=== PATIENT | female | born 2005 | race Caucasian/White ===

== ENCOUNTER 2024-07-11 16:44 | Inpatient (IN) | payer BC, MEDICAID, SELFPAY ==
--- NOTE | ~2024-07-11 | CT_ITS ---
CLINICAL HISTORY: Right-sided pain CT abdomen and pelvis without contrast Comparison: None Findings: No nephrolithiasis or hydronephrosis. No bladder stone. No consolidation at the lung bases. Unremarkable gallbladder. Hepatic steatosis. The other solid organs are normal. No bowel wall thickening or dilation. The proximal appendix is normal in size, measuring 6 mm, and contains air. The distal appendix is mildly dilated, measuring up to 9 mm. The distal appendix does not contain air. There is mild distal periappendiceal stranding. No fluid collection or free air. Normal vasculature. No lymphadenopathy. No ascites. No acute fracture. Impression: Acute uncomplicated appendicitis. This document has been electronically signed by: Katia Clement MD on 07/11/2024 19:51:42
[2024-07-11 17:23] VITALS: BP 115/82; PULSE 81; RESP 18; TEMP 36.3; O2SAT 98; BMI 50.6
--- NOTE | 2024-07-11 17:26 | ED.GENADULT ---
HPI - General Adult General Chief complaint: Abdominal Pain Stated complaint: Appendix- Stabbing Pain, 99.2 Temp, Nausea Time Seen by Provider: 07/11/24 17:41 Source: patient Mode of arrival: ambulatory Limitations: no limitations History of Present Illness ED Provider: HPI narrative: Patient no significant past medical noticed sudden onset of pain in right mid abdomen yesterday at 18:00 sharp in nature associated with nausea no fever no chills no urinary symptoms no hematuria patient has had normal bowel movement today did not feel hungry all day today Related Data Home Medications ?Medication ?Instructions ?Recorded ?Confirmed No Known Home Meds 07/11/24 07/11/24 Allergies Allergy/AdvReac Type Severity Reaction Status Date / Time amoxicillin [From AUGMENTIN] AdvReac Mild Anaphylaxis Verified 07/11/24 20:29 clavulanic acid AdvReac Mild STOMACH Verified 07/11/24 17:24 [From AUGMENTIN] UPSET Review of Systems Review of Systems: Yes all other systems are reviewed and are negative PMFSH Past Medical History Medical History (Updated 07/11/24 @ 20:51 by Carl Huagn MD) Morbid obesity due to excess calories Surgical History (Updated 07/11/24 @ 20:52 by Carl Huang MD) S/P carpal tunnel release Social History Social History Smoked in Last 30 Days: Yes Use of substances other than those prescribed or required for medical reasons: No Advance Directives: No Advance Directives Information Provided: No Patient : No Physical Exam ED Vital Signs: Vital Signs - 24 hr 07/11/24 17:23 07/11/24 20:55 Temperature 97.4 F 98.5 F Pulse Rate 81 76 Respiratory Rate 18 20 Blood Pressure 115/82 101/51 L Pulse Oximetry 98 100 Oxygen Delivery Method Room Air Room Air BMI result Body Mass Index 50.6 Appearance: Alert. Oriented X3. No acute distress. Eyes: No pallor or icterus ENT: Pharynx normal. Oral Mucosa moist Neck: Normal inspection. Neck supple. CVS: Normal heart rate and rhythm. Pulses normal. Respiratory: No respiratory distress. Equal air entry bilateral, no wheezing/rales/rhonchi Abdomen: Soft and deep tenderness rlq Bowel sounds are present, no mass palpable, slight right CVA tenderness Skin: Skin warm and dry. Normal skin color. Normal skin turgor. Extremities: No lower extremity edema. No calf tenderness Neuro: Oriented X 3. No motor deficit. Course Course Course Narrative: This is a rapid medical exam performed by Ana Bell PA-C. The patient is a 18-year-old female with a history of morbid obesity who presents with right lower quadrant pain since last night. Pain nonradiating, worse with lying on her abdomen or movement. Associated nausea no vomiting. Denies dysuria, hematuria or history of kidney stones. No fevers. No diarrhea no constipation. On exam, she has tenderness over suprapubic to right lower quadrant without guarding. We will be screening basic labs and an hCG. The patient is stable and can return to the waiting room pending her full medical assessment. Medications Administered Generic Name Dose Route Start Last Admin Trade Name Freq PRN Reason Stop Dose Admin Lactated Ringer's 1,000 mls @ 80 mls/hr 07/11/24 21:15 07/11/24 22:17 Lr IVCONT 80 mls/hr .[id number] JONATHAN Administration Ketorolac Tromethamine 15 mg 07/11/24 21:22 07/11/24 21:42 Ketorolac Tromethamine 15 Mg/Ml Vial IVPUSH 15 mg Q6H PRN Administration Pain, Severe (Pain Scale 7-10) Discontinued Medications Generic Name Dose Route Start Last Admin Trade Name Freq PRN Reason Stop Dose Admin Levofloxacin 500 mg in 100 mls @ 100 mls/hr 07/11/24 20:46 07/11/24 23:45 Levaquin IV 07/11/24 21:45 Infused ONCE ONE Infusion Metronidazole 500 mg in 100 mls @ 100 mls/hr 07/11/24 20:46 07/11/24 22:45 Flagyl IV 07/11/24 21:45 Infused ONCE ONE Infusion Medical Decision Making Medical Decision Making [facility] Narrative: Patient's sudden onset of pain in the right mid abdomen and right lower quadrant possible kidney stone/appendicitis/diverticulitis CT scan showed uncomplicated acute appendicitis patient has a normal WBC count case discussed surgeon Dr. Huang will come and see the patient's plan for surgery in a.m. advised to start patient on Zosyn Differential Diagnosis Differential Diagnoses: The differential diagnosis associated with the presentation includes Consult Healthcare Provider Management of the patient was discussed with: Customer Care Assistant Lab Data MDM Lab Attestation statement: I reviewed the patient's lab results. 07/11/24 17:37 07/11/24 17:37 Labs: Lab Results 07/11/24 07/11/24 Range/Units 17:37 17:54 WBC 5.5 (4.8-10.8) X10*3/uL RBC 4.89 (4.20-5.50) X10*6/uL Hgb 14.0 (12.0-16.0) g/dl Hct 39.5 (37.0-47.0) % MCV 80.8 (80.0-98.0) fL MCH 28.6 (27.0-33.0) pg MCHC 35.4 H (31.0-35.0) g/dl RDW 12.3 (11.0-16.0) % Plt Count 221 (160-400) X10*3/uL MPV 9.2 L (9.4-12.3) fL Immature Gran % (Auto) 0.7 H (0.0-0.4) % Neut % (Auto) 56.3 (45-73) % Lymph % (Auto) 34.1 (20-40) % [place]osh % (Auto) 7.8 (2-11) % Eos % (Auto) 0.9 (0-4) % Baso % (Auto) 0.2 (0-2) % Lymph # (Auto) 1.9 (1.2-4.9) X10*3/uL [place] # (Auto) 0.4 (0.1-1.2) X10*3/uL Eos # (Auto) 0.1 (0.0-0.4) X10*3/uL Baso # (Auto) 0.0 (0.0-0.2) X10*3/uL Abs Immat Gran (auto) 0.04 H (0.00-0.03) X10*3/uL Absolute Neuts (auto) 3.1 (2.0-8.3) x10*3/uL Absolute Nucleated RBC 0.000 (0.0-0.012) X10*3/uL Nucleated RBC % (auto) 0.0 (0.0-0.2) /100WBC Sodium 138 (135-145) mmol/L Potassium 4.0 (3.3-5.1) mmol/L Chloride 107 (96-108) mmol/L Carbon Dioxide 25 (22-29) mmol/L Anion Gap 10 L (12-20) BUN 11 (9-16) mg/dL Creatinine 0.73 (0.5-1.4) mg/dL Estim Creat Clear Calc 167.4 Estimated GFR > 60 Random Glucose 85 (60-115) mg/dL Calcium 9.2 (8.4-10.2) mg/dL Magnesium 1.7 (1.6-2.6) mg/dL Total Bilirubin 0.7 (0.0-1.0) mg/dL AST 19 (5-31) U/L ALT 21 (0-31) U/L Alkaline Phosphatase 70 (39-117) U/L Total Protein 7.2 (6.5-8.0) g/dL Albumin 4.2 (3.5-5.0) g/dL Beta HCG, Quant < 2 mIU/mL Urine Color Yellow Urine Appearance Cloudy Urine pH 6.5 (5.0-9.0) Ur Specific [place] 1.020 (1.005-1.025) Urine Protein Negative (Neg-Trace) mg/dL Urine Glucose (UA) Negative (Negative) mg/dL Urine Ketones Negative (Negative) mg/dL Urine Blood Negative (Negative) Urine Nitrite Negative (Negative) Ur Leukocyte Esterase Trace H (Negative) Urine RBC 6-10 H (0-2) /HPF Urine WBC 6-10 H (0-5) /HPF Ur Squamous Epith Cells 11-20 (0-2) /HPF Urine Bacteria 3+ (None Seen) Hyaline Casts 0-2 (0-2) /LPF Independent Interpretation I performed an independent interpretation of an: CT Scan Radiology Impression Discussion of test interpretation with radiology: I have reviewed the radiologist's reading. Radiologist Impression: CT abdomen and pelvis without contrast Comparison: None Findings: No nephrolithiasis or hydronephrosis. No bladder stone. No consolidation at the lung bases. Unremarkable gallbladder. Hepatic steatosis. The other solid organs are normal. No bowel wall thickening or dilation. The proximal appendix is normal in size, measuring 6 mm, and contains air. The distal appendix is mildly dilated, measuring up to 9 mm. The distal appendix does not contain air. There is mild distal periappendiceal stranding. No fluid collection or free air. Normal vasculature. No lymphadenopathy. No ascites. No acute fracture. Impression: Acute uncomplicated appendicitis. This document has been electronically signed by: Katia Clement MD on 07/11/2024 19:51:42 Discharge Plan Discharge Clinical Impression: Acute appendicitis Patient Disposition: Admitted As Inpatient
[2024-07-11 17:44] LABS: MANUAL DIFF FLAG NO
[2024-07-11 17:59] LABS: Basophils Percent Auto 0.2 % (0-2); Eosinophils Absolute Auto 0.1 X10*3/uL (0.0-0.4); Eosinophils Percent Auto 0.9 % (0-4); Hematocrit 39.5 % (37.0-47.0); Imm Gran Abs Auto 0.04 X10*3/uL (0.00-0.03); Imm Gran Pct Auto 0.7 % (0.0-0.4); Lymphocytes Absolute Auto 1.9 X10*3/uL (1.2-4.9); Lymphocytes Percent Auto 34.1 % (20-40); Mean Corpuscular HGB Conc 35.4 g/dl (31.0-35.0); Mean Corpuscular Hemoglobin 28.6 pg (27.0-33.0); Mean Corpuscular Volume 80.8 fL (80.0-98.0); Mean Platelet Volume 9.2 fL (9.4-12.3); Monocytes Absolute Auto 0.4 X10*3/uL (0.1-1.2); Monocytes Percent Auto 7.8 % (2-11); Neutrophils Absolute Auto 3.1 x10*3/uL (2.0-8.3); Neutrophils Percent Auto 56.3 % (45-73); Platelet Count 221 X10*3/uL (160-400); Red Blood Count 4.89 X10*6/uL (4.20-5.50); Red Cell Distribution Width 12.3 % (11.0-16.0); White Blood Count 5.5 X10*3/uL (4.8-10.8)
[2024-07-11 18:03] LABS: Alanine Aminotransferase 21 U/L (0-31); Albumin Level 4.2 g/dL (3.5-5.0); Alkaline Phosphatase 70 U/L (39-117); Anion Gap 10 (12-20); Aspartate Amino Transferase 19 U/L (5-31); Bilirubin Total 0.7 mg/dL (0.0-1.0); Blood Urea Nitrogen 11 mg/dL (9-16); Calcium 9.2 mg/dL (8.4-10.2); Carbon Dioxide 25 mmol/L (22-29); Chloride 107 mmol/L (96-108); Creatinine Clr Calc Pharmacy 167.4; Estimated Glomerular Filt Rate > 60; Glucose Random 85 mg/dL (60-115); Magnesium 1.7 mg/dL (1.6-2.6); Sodium 138 mmol/L (135-145); Total Protein 7.2 g/dL (6.5-8.0)
[2024-07-11 18:04] LABS: HCG Quantitative < 2 mIU/mL
[2024-07-11 18:05] LABS: Appearance Urine Cloudy; Color Urine Yellow; Glucose Urine UA Negative (Negative); Leukocyte Esterase Urine Trace (Negative); Nitrite Urine Negative (Negative); PH 6.5 (5.0-9.0); UMIC TRIGGER UACC YES; Urine Blood Negative (Negative); Urine Ketones Negative (Negative); Urine Protein Negative (Neg-Trace)
[2024-07-11 18:20] LABS: Bacteria Urine 3+ (None Seen); Hyaline Casts Urine 0-2 /LPF (0-2); UACC Culture Trigger YES
--- NOTE | 2024-07-11 20:48 | PM.HPGS ---
History of Present Illness History of Present Illness Date of Service: 07/16/24 Chief complaint: appendicitis Narrative: Marion Real is a 18 year old female here in the ED for right lower quadrant pain. She says this started sometime last night. She had some nause as well but denies any vomitting. The pain persisted today so she came to the ED this afternoon. She says the pain is low in intensity. She deneis any fever or chills. She has never had abdominal surgery in the past. Review of Systems Constitutional: Constitutional: Denies chills and Denies fever(s) Cardiovascular: Cardiovascular: Denies chest pain, Denies dyspnea and Denies dyspnea on exertion Respiratory: Respiratory: Denies cough, Denies dyspnea and Denies dyspnea on exertion Gastrointestinal: Gastrointestinal: Denies hematochezia and Denies change in bowel habits Genitourinary: Genitourinary: Denies hematuria Musculoskeletal: Musculoskeletal: Denies back pain and Denies limited range of motion Neurologic: Denies focal weakness and Denies convulsions Psychiatric: Psychiatric: Denies depression and Denies mood swings PMFSH Past Medical History Medical History Morbid obesity due to excess calories Surgical History Surgical History S/P carpal tunnel release Social History Social History Household Members: Family Housing: Apartment Do you presently have visiting nurse or other home services: No Patient Tobacco Use Status: Never used Tobacco e-Cigarette/Vaping Use: Currently Using Second Hand Smoke Exposure: No Substance Use Type: Marijuana service: No Meds Allergies Allergy/AdvReac Type Severity Reaction Status Date / Time amoxicillin [From AUGMENTIN] AdvReac Mild Anaphylaxis Verified 07/11/24 20:29 clavulanic acid AdvReac Mild STOMACH Verified 07/11/24 17:24 [From AUGMENTIN] UPSET Active Medications: Current Medications Levofloxacin (Levaquin) 500 mg in 100 mls @ 100 mls/hr IV ONCE ONE Stop: 07/11/24 21:45 Metronidazole (Flagyl) 500 mg in 100 mls @ 100 mls/hr IV ONCE ONE Stop: 07/11/24 21:45 Physical Exam Vital Signs: Vital Signs: Last Vital Signs Temp 97.4 F 07/11/24 17:23 Pulse 81 07/11/24 17:23 Resp 18 07/11/24 17:23 BP 115/82 07/11/24 17:23 Pulse Ox 98 07/11/24 17:23 O2 Del Method Room Air 07/11/24 17:23 BMI result Body Mass Index 50.6 Const: Other: morbidly obese General: comfortable and no acute distress Orientation/consciousness: patient oriented x3 Neck: Neck: Yes no lymphadenopathy Resp: Auscultation: clear to auscultation bilaterally Cardio: Rhythm: regular rhythm GI: Other: obese abdomen, thick pannus, mild tendernes on the RLQ Palpation (GI): Soft to palpation, Tenderness to palpation present (GI) and no guarding Neuro: General: patient oriented x3 Results Results Labs: Short CBC 07/11/24 Range/Units 17:37 WBC 5.5 (4.8-10.8) X10*3/uL Hgb 14.0 (12.0-16.0) g/dl Hct 39.5 (37.0-47.0) % Plt Count 221 (160-400) X10*3/uL BMP 07/11/24 17:37 Sodium 138 Potassium 4.0 Chloride 107 Carbon Dioxide 25 BUN 11 Creatinine 0.73 Calcium 9.2 Liver Function 07/11/24 Range/Units 17:37 Total Bilirubin 0.7 (0.0-1.0) mg/dL AST 19 (5-31) U/L ALT 21 (0-31) U/L Alkaline Phosphatase 70 (39-117) U/L Albumin 4.2 (3.5-5.0) g/dL Urine 07/11/24 Range/Units 17:54 Urine Color Yellow Urine Appearance Cloudy Urine pH 6.5 (5.0-9.0) Ur Specific [place] 1.020 (1.005-1.025) Urine Protein Negative (Neg-Trace) mg/dL Urine Glucose (UA) Negative (Negative) mg/dL Abdomen CT scan report/results: report reviewed and image reviewed CT scan - pelvis: report reviewed and image reviewed Additional studies: Laboratory Results WBC 5.5 X10*3/uL (4.8-10.8) 07/11/24 17:37 RBC 4.89 X10*6/uL (4.20-5.50) 07/11/24 17:37 Hgb 14.0 g/dl (12.0-16.0) 07/11/24 17:37 Hct 39.5 % (37.0-47.0) 07/11/24 17:37 MCV 80.8 fL (80.0-98.0) 07/11/24 17:37 MCH 28.6 pg (27.0-33.0) 07/11/24 17:37 MCHC 35.4 g/dl (31.0-35.0) H 07/11/24 17:37 RDW 12.3 % (11.0-16.0) 07/11/24 17:37 Plt Count 221 X10*3/uL (160-400) 07/11/24 17:37 MPV 9.2 fL (9.4-12.3) L 07/11/24 17:37 Immature Gran % (Auto) 0.7 % (0.0-0.4) H 07/11/24 17:37 Neut % (Auto) 56.3 % (45-73) 07/11/24 17:37 Lymph % (Auto) 34.1 % (20-40) 07/11/24 17:37 [place] % (Auto) 7.8 % (2-11) 07/11/24 17:37 Eos % (Auto) 0.9 % (0-4) 07/11/24 17:37 Baso % (Auto) 0.2 % (0-2) 07/11/24 17:37 Lymph # (Auto) 1.9 X10*3/uL (1.2-4.9) 07/11/24 17:37 [place] # (Auto) 0.4 X10*3/uL (0.1-1.2) 07/11/24 17:37 Eos # (Auto) 0.1 X10*3/uL (0.0-0.4) 07/11/24 17:37 Baso # (Auto) 0.0 X10*3/uL (0.0-0.2) 07/11/24 17:37 Abs Immat Gran (auto) 0.04 X10*3/uL (0.00-0.03) H 07/11/24 17:37 Absolute Neuts (auto) 3.1 x10*3/uL (2.0-8.3) 07/11/24 17:37 Absolute Nucleated RBC 0.000 X10*3/uL (0.0-0.012) 07/11/24 17:37 Nucleated RBC % (auto) 0.0 /100WBC (0.0-0.2) 07/11/24 17:37 Sodium 138 mmol/L (135-145) 07/11/24 17:37 Potassium 4.0 mmol/L (3.3-5.1) 07/11/24 17:37 Chloride 107 mmol/L (96-108) 07/11/24 17:37 Carbon Dioxide 25 mmol/L (22-29) 07/11/24 17:37 Anion Gap 10 (12-20) L 07/11/24 17:37 BUN 11 mg/dL (9-16) 07/11/24 17:37 Creatinine 0.73 mg/dL (0.5-1.4) 07/11/24 17:37 Estim Creat Clear Calc 167.4 07/11/24 17:37 Estimated GFR > 60 07/11/24 17:37 Random Glucose 85 mg/dL (60-115) 07/11/24 17:37 Calcium 9.2 mg/dL (8.4-10.2) 07/11/24 17:37 Magnesium 1.7 mg/dL (1.6-2.6) 07/11/24 17:37 Total Bilirubin 0.7 mg/dL (0.0-1.0) 07/11/24 17:37 AST 19 U/L (5-31) 07/11/24 17:37 ALT 21 U/L (0-31) 07/11/24 17:37 Alkaline Phosphatase 70 U/L (39-117) 07/11/24 17:37 Total Protein 7.2 g/dL (6.5-8.0) 07/11/24 17:37 Albumin 4.2 g/dL (3.5-5.0) 07/11/24 17:37 Beta HCG, Quant < 2 mIU/mL 07/11/24 17:37 Urine Color Yellow 07/11/24 17:54 Urine Appearance Cloudy 07/11/24 17:54 Urine pH 6.5 (5.0-9.0) 07/11/24 17:54 Ur Specific [place] 1.020 (1.005-1.025) 07/11/24 17:54 Urine Protein Negative mg/dL (Neg-Trace) 07/11/24 17:54 Urine Glucose (UA) Negative mg/dL (Negative) 07/11/24 17:54 Urine Ketones Negative mg/dL (Negative) 07/11/24 17:54 Urine Blood Negative (Negative) 07/11/24 17:54 Urine Nitrite Negative (Negative) 07/11/24 17:54 Ur Leukocyte Esterase Trace (Negative) H 07/11/24 17:54 Urine RBC 6-10 /HPF (0-2) H 07/11/24 17:54 Urine WBC 6-10 /HPF (0-5) H 07/11/24 17:54 Ur Squamous Epith Cells 11-20 /HPF (0-2) 07/11/24 17:54 Urine Bacteria 3+ (None Seen) 07/11/24 17:54 Hyaline Casts 0-2 /LPF (0-2) 07/11/24 17:54 CT scan: No bowel wall thickening or dilation. The proximal appendix is normal in size, measuring 6 mm, and contains air. The distal appendix is mildly dilated, measuring up to 9 mm. The distal appendix does not contain air. There is mild distal periappendiceal stranding. No fluid collection or free air. Assessment and Plan (1) Acute appendicitis: Status: Acute She has RLQ pain, with a CT scan suggestive of mild acute appendicitis. There is minimal stranding at the tip of the appendix. There is no appendicolith. She has mild tenderness at this time. I had a long discussion with the patient and her family. I explained the options of IV abx as well as laparoscopic appendectomy. I explained the technique of laparoscopic appendectomy and possible open appndectomy. Ir evewed the risks and benefits of each option. Her CT shows minimal inflammatory changes and she does not have an appendicolith. It is resonable to treat her with abx for now especially in view of her morbid obesity which is assocaited with significant perioperative risks. I will order for labs in the morning and will reevaluate her. She and her family are comfortable with the plan. Quality Stroke Does the patient have a stroke diagnosis?: No VTE Prior VTE?: No VTE Risk Level:: Medical - low VTE Device Contraindication: N/A - Device Ordered VTE Drug Contraindication: Treatment Not Indicated Procedures Date of Service Date of Service: 07/16/24
[2024-07-11 20:55] VITALS: BP 101/51; PULSE 76; RESP 20; TEMP 36.9; O2SAT 100
--- NOTE | 2024-07-11 21:13 | PHA.MEDREC ---
Addendum entered by Carlos Giron [facility] 07/11/24 21:26: MED REC CHECKED BY [facility] Original Note: Pharmacy Consult ? Medication Reconciliation Pharmacy has completed the medication reconciliation. Patent states she is not taking any medications.
--- NOTE | 2024-07-11 21:33 | MHC.EDTECH ---
neda and clarence norris given to pt upon request
[2024-07-11] MEDS: metroNIDAZOLE/NS 500 MG/100 ML PIGGYBACK 100 MG IV (21:42)
[2024-07-11] MEDS: Ketorolac Tromethamine 15 MG/ML VIAL IVPUSH (21:42)
--- NOTE | 2024-07-11 21:51 | PC.NURSE ---
no blood cultures prior to antibiotics per Dr. Damian. Flagyl started at this time, levaquin not in pyxis, pharmacy aware and will bring it. patient medicated for 7/10 RLQ abd pain. tolerating clear liquids at this time, patient aware of NPO status at midnight
[2024-07-11] MEDS: Lactated Ringers 1,000 ML 80 ML IVCONT (22:17)
[2024-07-11] MEDS: levoFLOXacin/D5W 500 MG/100 ML PIGGYBACK 100 MG IV (22:41)
--- NOTE | 2024-07-11 23:23 | PC.NURSE ---
assumed care of patient at this time., report received from Magaly KNIGHT
[2024-07-12] VITALS (7 sets, daily range): BP systolic 98–121; BP diastolic 56–79; PULSE 73–89; RESP 15–18; TEMP 36.3–36.9; O2SAT 96–98; BMI 52.7
[2024-07-12] MEDS: ondansetron HCL 4 MG/2 ML VIAL IVPUSH ×2 (03:14→23:51)
[2024-07-12] MEDS: Morphine Sulfate 4 MG/ML CARTRIDGE 3 MG IVPUSH ×4 (03:14→20:31)
--- NOTE | 2024-07-12 04:25 | PC.NURSE ---
pt reports relief of pain from morphine administration. resting comfortably watching videos on phone, no apparent distress noted. call cifuentes within reach plan of care continues
[2024-07-12 05:16] LABS: MANUAL DIFF FLAG NO
[2024-07-12 05:18] LABS: Basophils Percent Auto 0.2 % (0-2); Eosinophils Absolute Auto 0.1 X10*3/uL (0.0-0.4); Hematocrit 40.1 % (37.0-47.0); Hemoglobin 13.5 g/dl (12.0-16.0); Imm Gran Abs Auto 0.03 X10*3/uL (0.00-0.03); Imm Gran Pct Auto 0.5 % (0.0-0.4); Lymphocytes Absolute Auto 2.7 X10*3/uL (1.2-4.9); Lymphocytes Percent Auto 44.7 % (20-40); Mean Corpuscular HGB Conc 33.7 g/dl (31.0-35.0); Mean Corpuscular Hemoglobin 27.9 pg (27.0-33.0); Mean Corpuscular Volume 82.9 fL (80.0-98.0); Mean Platelet Volume 9.6 fL (9.4-12.3); Monocytes Absolute Auto 0.5 X10*3/uL (0.1-1.2); Monocytes Percent Auto 8.9 % (2-11); Neutrophils Absolute Auto 2.7 x10*3/uL (2.0-8.3); Neutrophils Percent Auto 44.7 % (45-73); Platelet Count 235 X10*3/uL (160-400); Red Blood Count 4.84 X10*6/uL (4.20-5.50); Red Cell Distribution Width 12.4 % (11.0-16.0)
[2024-07-12] MEDS: Ketorolac Tromethamine 15 MG/ML VIAL IVPUSH ×2 (07:11→18:26)
[2024-07-12] MEDS: 0.9 % Sodium Chloride Flush 3 ML SYRINGE IVFLUSH ×2 (07:12→20:31)
[2024-07-12] MEDS: metroNIDAZOLE/NS 500 MG/100 ML PIGGYBACK 100 MG IV ×3 (07:15→23:18)
--- NOTE | 2024-07-12 07:48 | P.PNGS_ITS ---
Subjective Subjective Date of Service: 07/13/24 Interval history: States she was anxious all night No nausea or vomiting Feels relatively the same No fever Physical Exam 2 Vital Signs: Vital Signs: Last Vital Signs Temp 98.3 F 07/12/24 03:08 Pulse 80 07/12/24 07:35 Resp 18 07/12/24 07:35 BP 109/57 L 07/12/24 07:35 Pulse Ox 97 07/12/24 07:35 O2 Del Method Room Air 07/12/24 07:35 BMI result Body Mass Index 50.6 Const: Other: Looks well General: comfortable and no acute distress Nutritional Appearance: obese Resp: Effort & Inspection: normal respiratory effort Cardio: Rate: regular rate GI: Palpation (GI): Soft to palpation, not firm, Tenderness to palpation present (GI) (Mild tenderness right lower quadrant) and no guarding Objective Data Active Medications Acetaminophen (Acetaminophen 325 Mg Tablet) 650 mg PO Q6H PRN PRN Reason: Pain, Mild 1-3,fever,headache Calcium Carbonate (Calcium Carbonate 750 Mg Tab.Chew) 750 mg PO Q4H PRN PRN Reason: Heartburn Lactated Ringer's (Lr) 1,000 mls @ 80 mls/hr IVCONT .[id number] [facility] Last Admin: 07/11/24 22:17 Dose: 80 mls/hr Documented By: CARLITOS Levofloxacin (Levaquin) 750 mg in 150 mls @ 100 mls/hr IV Q24H JONATHAN Metronidazole (Flagyl) 500 mg in 100 mls @ 100 mls/hr IV Q8H [facility] Last Admin: 07/12/24 07:15 Dose: 100 mls/hr Documented By: GURINDER Ketorolac Tromethamine (Ketorolac Tromethamine 15 Mg/Ml Vial) 15 mg IVPUSH Q6H PRN PRN Reason: Pain, Severe (Pain Scale 7-10) Last Admin: 07/12/24 07:11 Dose: 15 mg Documented By: GURINDER Morphine Sulfate (Morphine Sulfate 4 Mg/Ml Cartridge) 3 mg IVPUSH Q4H PRN; Protocol PRN Reason: Pain, Severe (Pain Scale 7-10) Last Admin: 07/12/24 03:14 Dose: 3 mg Documented By: CARTER Ondansetron HCl (Ondansetron Hcl 4 Mg/2 Ml Vial) 4 mg IVPUSH Q8H PRN PRN Reason: Nausea and Vomiting Last Admin: 07/12/24 03:14 Dose: 4 mg Documented By: CARTER Oxycodone HCl (Oxycodone Hcl Immed Release 5 Mg Tablet) 10 mg PO Q6H PRN PRN Reason: Pain, Moderate(Pain Scale 4-6) Sodium Chloride (0.9 % Sodium Chloride Flush 3 Ml Syringe) 3 ml IVFLUSH QSHIFT [facility] Last Admin: 07/12/24 07:12 Dose: 3 ml Documented By: GURINDER Labs 07/12/24 04:08 07/11/24 17:37 Labs: Laboratory Results - last 24 hr 07/11/24 07/11/24 07/12/24 17:37 17:54 04:08 MCV 80.8 82.9 MCH 28.6 27.9 MCHC 35.4 H 33.7 RDW 12.3 12.4 Plt Count 221 235 MPV 9.2 L 9.6 Immature Gran % (Auto) 0.7 H 0.5 H Neut % (Auto) 56.3 44.7 L Lymph % (Auto) 34.1 44.7 H [place] % (Auto) 7.8 8.9 Eos % (Auto) 0.9 1.0 Baso % (Auto) 0.2 0.2 Lymph # (Auto) 1.9 2.7 [place] # (Auto) 0.4 0.5 Eos # (Auto) 0.1 0.1 Baso # (Auto) 0.0 0.0 Abs Immat Gran (auto) 0.04 H 0.03 Absolute Neuts (auto) 3.1 2.7 Absolute Nucleated RBC 0.000 0.000 Nucleated RBC % (auto) 0.0 0.0 Anion Gap 10 L Estim Creat Clear Calc 167.4 Estimated GFR > 60 Random Glucose 85 Calcium 9.2 Magnesium 1.7 Total Bilirubin 0.7 AST 19 ALT 21 Alkaline Phosphatase 70 Total Protein 7.2 Albumin 4.2 Beta HCG, Quant < 2 Urine Color Yellow Urine Appearance Cloudy Urine pH 6.5 Ur Specific [place] 1.020 Urine Protein Negative Urine Glucose (UA) Negative Urine Ketones Negative Urine Blood Negative Urine Nitrite Negative Ur Leukocyte Esterase Trace H Urine RBC 6-10 H Urine WBC 6-10 H Ur Squamous Epith Cells 11-20 Urine Bacteria 3+ Hyaline Casts 0-2 Procedures Date of Service Date of Service: 07/13/24 Progress Note: A&P Assessment and plan (1) Acute appendicitis: Status: Acute Assessment and Plan: Exam remains benign No fever White count remains normal Mild tenderness in the right lower quadrant She says to continue with IV antibiotic treatment for now Okay to have clear liquids Continue serial abdominal exams She says she is not ruling out surgical treatment Time Spent With Patient Time: Total time managing care of this patient today ____ minutes. Quality Stroke Does the patient have a stroke diagnosis?: No VTE Prior VTE?: No VTE Risk Level:: Medical - low VTE Device Contraindication: N/A - Device Ordered VTE Drug Contraindication: Treatment Not Indicated
--- NOTE | 2024-07-12 08:13 | MHC.EDTECH ---
pt belongings gathered and pakced next to her, checked for cleanliness and is ready for transport (via admission)
--- NOTE | 2024-07-12 10:52 | MHC.CM.PN ---
PT FROM HOME W/ AUNT [address] [facility] [place] PT DOES NOT RECEIVE SERVICES DOES NOT USE DME PCP- NATALIYA GRANADO PT SIGNED HCP NAMING AUNT, [employer], [employer], MEDICAID DCP- HOME SELF CARE VIA PRIVATE TRANSPORT (AUNT OR [facility])
[2024-07-12] MEDS: Lactated Ringers 1,000 ML 80 ML IVCONT (11:15)
--- NOTE | 2024-07-12 14:37 | PM.EVENT ---
Event Note Date of Service: 07/13/24 Event Note: Seen on afternoon rounds More comfortable No fever According to her aunt, she is not ruling out having surgery I reviewed with them what to expect with laparoscopic appendectomy and possible open I explained the recovery period She is undergoing some schooling to learn many cares and pedicures at this time and her on says that she may not be able to miss days as this is only for 2 weeks She is so far doing well with nonoperative treatment She is on clear liquids I will re-evaluate her again tomorrow Time Spent With Patient Time: Total time managing care of this patient today ____ minutes.
[2024-07-12] MEDS: Acetaminophen 325 MG TABLET 650 MG PO (19:20)
[2024-07-12] MEDS: oxyCODONE HCl Immed Release 5 MG TABLET 10 MG PO (19:20)
[2024-07-12] MEDS: levoFLOXacin/D5W 750 MG/150 ML PIGGYBACK 100 MG IV (22:14)
--- NOTE | 2024-07-13 00:41 | PC.NURSE ---
07/12 around 2309 pt c/o dizziness and a scratchy throat while IV levaquin running, pt thinks it may be an allergic reaction because her grandmother is allergic to levaquin. She did receive a dose of IV levaquin in the ED with no reactions noted. [place] text to Dr. Last who ordered to hold antibiotics. Levaquin stopped. Will continue to monitor.
[2024-07-13] MEDS: Lactated Ringers 1,000 ML 80 ML IVCONT (01:39)
[2024-07-13 03:35] VITALS: BP 122/63; PULSE 72; RESP 16; TEMP 36.2; O2SAT 98
[2024-07-13] MEDS: metroNIDAZOLE/NS 500 MG/100 ML PIGGYBACK 100 MG IV ×3 (06:06→22:19)
[2024-07-13 07:15] VITALS: BP 110/74; PULSE 69; RESP 16; TEMP 36.1; O2SAT 100
[2024-07-13] MEDS: Morphine Sulfate 4 MG/ML CARTRIDGE 3 MG IVPUSH ×4 (07:22→20:09)
--- NOTE | 2024-07-13 07:52 | PM.PNGS ---
Subjective Subjective Date of Service: 07/13/24 Interval history: No events overnight Tolerating clear liquid Still has some low intensity pain No fever Physical Exam Vital Signs: Vital Signs: Last Vital Signs Temp 96.9 F 07/13/24 07:15 Pulse 69 07/13/24 07:15 Resp 16 07/13/24 07:15 BP 110/74 07/13/24 07:15 Pulse Ox 100 07/13/24 07:15 O2 Del Method Room Air 07/13/24 07:15 BMI result Body Mass Index 52.7 Const: Other: Looks well General: comfortable and no acute distress Resp: Effort & Inspection: normal respiratory effort Cardio: Rate: regular rate GI: Other: Large pannus, obese Palpation (GI): Soft to palpation, not firm and no guarding Objective Data Active Medications Acetaminophen (Acetaminophen 325 Mg Tablet) 650 mg PO Q6H PRN PRN Reason: Pain, Mild 1-3,fever,headache Last Admin: 07/12/24 19:20 Dose: 650 mg Documented By: SARITHA Calcium Carbonate (Calcium Carbonate 750 Mg Tab.Chew) 750 mg PO Q4H PRN PRN Reason: Heartburn Lactated Ringer's (Lr) 1,000 mls @ 80 mls/hr IVCONT .[id number] [facility] Last Admin: 07/13/24 01:39 Dose: 80 mls/hr Documented By: SARITHA Levofloxacin (Levaquin) 750 mg in 150 mls @ 100 mls/hr IV Q24H [facility] Last Infusion: 07/12/24 23:18 Dose: Infused Documented By: SARITHA Metronidazole (Flagyl) 500 mg in 100 mls @ 100 mls/hr IV Q8H [facility] Last Infusion: 07/13/24 07:18 Dose: Infused Documented By: KULDIP Ketorolac Tromethamine (Ketorolac Tromethamine 15 Mg/Ml Vial) 15 mg IVPUSH Q6H PRN PRN Reason: Pain, Severe (Pain Scale 7-10) Last Admin: 07/12/24 18:26 Dose: 15 mg Documented By: JOELLE Morphine Sulfate (Morphine Sulfate 4 Mg/Ml Cartridge) 3 mg IVPUSH Q4H PRN; Protocol PRN Reason: Pain, Severe (Pain Scale 7-10) Last Admin: 07/13/24 07:22 Dose: 3 mg Documented By: KULDIP Ondansetron HCl (Ondansetron Hcl 4 Mg/2 Ml Vial) 4 mg IVPUSH Q8H PRN PRN Reason: Nausea and Vomiting Last Admin: 07/12/24 23:51 Dose: 4 mg Documented By: SARITHA Oxycodone HCl (Oxycodone Hcl Immed Release 5 Mg Tablet) 10 mg PO Q6H PRN PRN Reason: Pain, Moderate(Pain Scale 4-6) Last Admin: 07/12/24 19:20 Dose: 10 mg Documented By: SARITHA Sodium Chloride (0.9 % Sodium Chloride Flush 3 Ml Syringe) 3 ml IVFLUSH QSHIFT [facility] Last Admin: 07/13/24 06:46 Dose: Not Given Documented By: KULDIP Non-Admin Reason: IV Running Labs 07/12/24 04:08 07/11/24 17:37 Microbiology Microbiology Results: Microbiology 07/11/24 21:01 Urine Culture - Preliminary Urine clean catch - Clean Catch Midstream Culture too young to evaluate. 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 Quality Stroke Does the patient have a stroke diagnosis?: No VTE Prior VTE?: No VTE Risk Level:: Medical - low VTE Device Contraindication: N/A - Device Ordered VTE Drug Contraindication: Treatment Not Indicated
--- NOTE | 2024-07-13 10:37 | MHC.CM.PN ---
Patient not medically cleared for dc at this time. CM will continue to follow.
[2024-07-13] MEDS: Lactated Ringers 1,000 ML 60 ML IVCONT (11:52)
[2024-07-13 15:12] VITALS: BP 122/66; PULSE 82; RESP 18; TEMP 36.2; O2SAT 97
--- NOTE | 2024-07-13 16:07 | PM.EVENT ---
Event Note Date of Service: 07/13/24 Event Note: Seen on afternoon rounds Tolerating regular diet well Feels well overall Ambulating Abdomen is soft and benign She says she plans to go tomorrow Oral antibiotics on discharge She says she will follow up with me in the office for interval appendectomy Time Spent With Patient Time: Total time managing care of this patient today ____ minutes.
--- NOTE | 2024-07-13 16:45 | PC.NURSE ---
Plan to d/c tomorrow.
[2024-07-13] MEDS: Ketorolac Tromethamine 15 MG/ML VIAL IVPUSH (18:24)
[2024-07-13 19:27] VITALS: BP 104/59; PULSE 78; RESP 18; TEMP 36.2; O2SAT 98
[2024-07-13] MEDS: 0.9 % Sodium Chloride Flush 3 ML SYRINGE IVFLUSH (20:10)
[2024-07-14 03:33] VITALS: BP 97/53; PULSE 60; RESP 18; TEMP 36.3; O2SAT 97
[2024-07-14] MEDS: Lactated Ringers 1,000 ML 60 ML IVCONT (05:57)
[2024-07-14] MEDS: metroNIDAZOLE/NS 500 MG/100 ML PIGGYBACK 100 MG IV (05:58)
[2024-07-14 07:13] VITALS: BP 103/54; PULSE 67; RESP 16; TEMP 36.2; O2SAT 98
[2024-07-14] MEDS: ondansetron HCL 4 MG/2 ML VIAL IVPUSH (07:59)
[2024-07-14] MEDS: Milk of Magnesia 30 ML ORAL.SUSP PO (08:59)
--- NOTE | 2024-07-14 09:04 | PM.PNGS ---
Subjective Subjective Date of Service: 07/14/24 Interval history: Overall patient feels improved today compared to yesterday. Reports some nausea without vomiting this morning. Has not had a bowel movement since admission. Physical Exam Vital Signs: Vital Signs: Last Vital Signs Temp 97.1 F 07/14/24 07:13 Pulse 67 07/14/24 07:13 Resp 16 07/14/24 07:13 BP 103/54 L 07/14/24 07:13 Pulse Ox 98 07/14/24 07:13 O2 Del Method Room Air 07/14/24 07:13 BMI result Body Mass Index 52.7 Const: General: healthy appearing Nutritional Appearance: well nourished Orientation/consciousness: patient oriented x3 Resp: Effort & Inspection: normal respiratory effort GI: Inspection: Yes normal to inspection Palpation (GI): Soft to palpation, Tenderness to palpation present (GI) (Minimal right lower quadrant tenderness), no guarding and not rigid Percussion: Yes normal to percussion Neuro: General: patient oriented x3 Extrem: General: No edema Objective Data Active Medications Acetaminophen (Acetaminophen 325 Mg Tablet) 650 mg PO Q6H PRN PRN Reason: Pain, Mild 1-3,fever,headache Last Admin: 07/12/24 19:20 Dose: 650 mg Documented By: SARITHA Calcium Carbonate (Calcium Carbonate 750 Mg Tab.Chew) 750 mg PO Q4H PRN PRN Reason: Heartburn Lactated Ringer's (Lr) 1,000 mls @ 60 mls/hr IVCONT .[id number] [facility] Last Admin: 07/14/24 05:57 Dose: 60 mls/hr Documented By: ERIK Levofloxacin (Levaquin) 750 mg in 150 mls @ 100 mls/hr IV Q24H [facility] Last Admin: 07/13/24 20:11 Dose: Not Given Documented By: ERIK Non-Admin Reason: Patient Refused Metronidazole (Flagyl) 500 mg in 100 mls @ 100 mls/hr IV Q8H [facility] Last Infusion: 07/14/24 06:59 Dose: Infused Documented By: ERIK Ketorolac Tromethamine (Ketorolac Tromethamine 15 Mg/Ml Vial) 15 mg IVPUSH Q6H PRN PRN Reason: Pain, Severe (Pain Scale 7-10) Last Admin: 07/13/24 18:24 Dose: 15 mg Documented By: KULDIP Magnesium Hydroxide (Milk Of Magnesia 30 Ml Oral.Susp) 30 ml PO DAILY PRN PRN Reason: Constipation Last Admin: 07/14/24 08:59 Dose: 30 ml Documented By: HARJEET Morphine Sulfate (Morphine Sulfate 4 Mg/Ml Cartridge) 3 mg IVPUSH Q4H PRN; Protocol PRN Reason: Pain, Severe (Pain Scale 7-10) Last Admin: 07/13/24 20:09 Dose: 3 mg Documented By: ERIK Ondansetron HCl (Ondansetron Hcl 4 Mg/2 Ml Vial) 4 mg IVPUSH Q8H PRN PRN Reason: Nausea and Vomiting Last Admin: 07/14/24 07:59 Dose: 4 mg Documented By: HARJEET Oxycodone HCl (Oxycodone Hcl Immed Release 5 Mg Tablet) 10 mg PO Q6H PRN PRN Reason: Pain, Moderate(Pain Scale 4-6) Last Admin: 07/12/24 19:20 Dose: 10 mg Documented By: SARITHA Sodium Chloride (0.9 % Sodium Chloride Flush 3 Ml Syringe) [facility] Last Admin: 07/14/24 08:05 Dose: Not Given Documented By: HARJEET Non-Admin Reason: IV Running Labs 07/12/24 04:08 07/11/24 17:37 Microbiology Microbiology Results: Microbiology 07/11/24 21:01 Urine Culture - Final Urine clean catch - Clean Catch Midstream Procedures Date of Service Date of Service: 07/14/24 Progress Note: A&P Assessment and plan (1) Acute appendicitis: Status: Acute Plan Patient admitted with acute appendicitis being treated non operatively. Patient continues to improve with decreased abdominal pain although she did have some nausea this morning and received Zofran. She may be able to be discharged later today if nausea is improved with oral antibiotics. Continue with regular diet. Time Spent With Patient Time: Total time managing care of this patient today ____ minutes. Quality Stroke Does the patient have a stroke diagnosis?: No VTE Prior VTE?: No VTE Risk Level:: Medical - low VTE Device Contraindication: N/A - Device Ordered VTE Drug Contraindication: Treatment Not Indicated
--- NOTE | 2024-07-14 15:17 | PM.DS ---
DS: Providers Provider Date of Service: 07/14/24 Date of admission: 07/11/24 21:07 Date of discharge: 07/14/24 Primary care physician: Erinn Valdivia NP Attending physician on admission: Carl Huang Attending physician on discharge: Omar Tabor DS: Diagnosis Discharge Diagnosis (1) Acute appendicitis: Status: Acute DS: Summary Hospital Course Hospital Course: HPI AT ADMISSION: Marion Real is a 18 year old female here in the ED for right lower quadrant pain. She says this started sometime last night. She had some nause as well but denies any vomitting. The pain persisted today so she came to the ED this afternoon. She says the pain is low in intensity. She deneis any fever or chills. She has never had abdominal surgery in the past. CT scan suggestive of mild acute appendicitis. There is minimal stranding at the tip of the appendix. There is no appendicolith. No leukocytosis on labs. HOSPITAL COURSE: She was admitted to the surgical service for further treatment of the acute appendicitis. She had mild RLQ tenderness. Treatment options were reviewed and discussed it was reasonable to treat her nonoperatively with abx for now especially in view of her morbid obesity which is associated with significant perioperative risks. Patient and her family are comfortable with the plan. She improved symptomatically and on exam with conservative measures. WBC remained normal. She remained inpatient for 3 days for IV abx. On the day of discharge, she was tolerating a solid diet, had minimal pain. She was hemodynamically stable with a benign abd exam with minimal RLQ tenderness. She felt ready for discharge. She was discharged to home on 07/14/24 in stable condition on a course of oral flagyl and levaquin. She is to follow up in the office in 1-2 weeks. Status at Discharge Functional status at discharge: independent ambulation Overall status at discharge: patient is progressing back to baseline Time Attestation Discharge Coordination Time (in mins): 30 Quality: Safe Use of Opioids Does Pt have an Active Cancer Diagnosis on the Problem List?: No Quality: Stroke Does the patient have a stroke diagnosis?: No Physical Exam Vital Signs: Vital Signs: Last Vital Signs Temp 97.1 F 07/14/24 07:13 Pulse 67 07/14/24 07:13 Resp 16 07/14/24 07:13 BP 103/54 L 07/14/24 07:13 Pulse Ox 98 07/14/24 07:13 O2 Del Method Room Air 07/14/24 07:13 BMI result Body Mass Index 52.7 Const: General: comfortable, no acute distress and alert Orientation/consciousness: patient oriented x3 Resp: Effort & Inspection: normal respiratory effort GI: Palpation (GI): Soft to palpation, Tenderness to palpation present (GI) (minimal RLQ) and no guarding Skin: General skin exam: no rashes or lesions noted Neuro: General: patient oriented x3 and moves all extremities Discharge Plan Discharge Anticipated Discharge Date/Time: 07/14/24 13:25 Patient Disposition: Home, Self-Care Discharge Diagnosis: acute appendicitis Referrals: Erinn Valdivia NP [Primary Care Provider] - 1 Week Carl Huang MD [Physician] - 1 Week Discharge Medications: New metronidazole 500 mg tablet 500 mg PO TID Qty: 21 0RF levofloxacin 500 mg tablet 500 mg PO DAILY Qty: 7 0RF oxycodone-acetaminophen [Percocet] 5-325 mg tablet 1 tab PO TID PRN (Reason: pain) Qty: 15 0RF Rx Instructions: Partial Fill upon patient request. Discharge Orders: Discharge Order (Routine); Ordered 07/14/24 Ordered By: Omar Tabor Diet: Advance to usual diet Activity on Discharge: As tolerated Stand Alone Forms: Patient Portal Discharge page Print Language: German Activity Restrictions/Additional Instructions: Follow up in office in a week. ([phone]) Call Your Doctor If: ? ? -Your temperature exceeds 101.5? F? ? ? -You experience excessive pain or swelling ? ? -You have an unexpected reaction to medication ? ? -You experience continued vomiting/nausea Care Plan Goals: Return to baseline health and resume normal activities. Health Concerns: acute appendicitis Plan of Treatment: Nonoperative treatment with IV transitioned to oral antibiotics F/u in office Assessment: Improved Discharge Date/Time: 07/14/24 14:47
== END 2024-07-14 14:47 | disposition home or self-care (01) | DRG 254 ==
LOC: HO.ED 20:14 → HO.EDOVER 21:25 → HO.S3 07-12 08:04
PROVIDERS: Physician Assistant Medical; Admitting Provider Surgery; Emergency Provider Internal Medicine; PCP Nurse Practitioner Family; Visit Provider Surgery
DX: K35.80 Unspecified acute appendicitis (principal); Z68.43 Body mass index [BMI] 50.0-59.9, adult; E66.01 Morbid (severe) obesity due to excess calories; Z71.3 Dietary counseling and surveillance
CPT/HCPCS: 36415; 74176; 80053; 81001; 83735; 84702; 85025; 87086; 99285; J1836; J1885; J1956; J2270; J2405; J7120

== ENCOUNTER → 2024-07-11 18:16 | Outpatient (BNV) | payer BC, MEDICAID, SELFPAY | PROVIDERS: Emergency Provider Internal Medicine; PCP Nurse Practitioner Family; Visit Provider Radiology Diagnostic Radiology | DX: K35.80 Unspecified acute appendicitis (principal) | CPT/HCPCS: 74176 ==

== ENCOUNTER → 2024-07-11 21:07 | Outpatient (BNV) | payer BC, MEDICAID, SELFPAY | PROVIDERS: Admitting Provider Surgery; Emergency Provider Internal Medicine; PCP Nurse Practitioner Family; Visit Provider Surgery | DX: K35.80 Unspecified acute appendicitis (principal) | CPT/HCPCS: 99222; 99232; 99499 ==

== ENCOUNTER 2024-07-30 19:35 | Emergency (ER) | payer BC, SELFPAY ==
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
[2024-07-30 19:51] VITALS: BP 141/94; PULSE 87; RESP 16; TEMP 37; O2SAT 95; BMI 47.9
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
[2024-07-30 20:25] LABS: MANUAL DIFF FLAG NO
[2024-07-30 20:31] LABS: Basophils Percent Auto 0.1 % (0-2); Eosinophils Absolute Auto 0.1 X10*3/uL (0.0-0.4); Eosinophils Percent Auto 0.7 % (0-4); Hematocrit 38.7 % (37.0-47.0); Hemoglobin 13.8 g/dl (12.0-16.0); Imm Gran Abs Auto 0.03 X10*3/uL (0.00-0.03); Imm Gran Pct Auto 0.4 % (0.0-0.4); Lymphocytes Absolute Auto 1.6 X10*3/uL (1.2-4.9); Lymphocytes Percent Auto 22.8 % (20-40); Mean Corpuscular HGB Conc 35.7 g/dl (31.0-35.0); Mean Corpuscular Hemoglobin 28.9 pg (27.0-33.0); Mean Platelet Volume 9.3 fL (9.4-12.3); Monocytes Absolute Auto 0.5 X10*3/uL (0.1-1.2); Neutrophils Absolute Auto 4.8 x10*3/uL (2.0-8.3); Platelet Count 221 X10*3/uL (160-400); Red Blood Count 4.78 X10*6/uL (4.20-5.50); Red Cell Distribution Width 12.4 % (11.0-16.0)
[2024-07-30 20:47] LABS: Alanine Aminotransferase 21 U/L (0-31); Albumin Level 4.4 g/dL (3.5-5.0); Alkaline Phosphatase 78 U/L (39-117); Anion Gap 10 (12-20); Aspartate Amino Transferase 23 U/L (5-31); Bilirubin Total 0.4 mg/dL (0.0-1.0); Blood Urea Nitrogen 13 mg/dL (9-16); Calcium 9.6 mg/dL (8.4-10.2); Carbon Dioxide 24 mmol/L (22-29); Chloride 110 mmol/L (96-108); Estimated Glomerular Filt Rate > 60; Glucose Random 86 mg/dL (60-115); HCG Quantitative < 2 mIU/mL; Lipase 21 U/L (8-78); Potassium 3.9 mmol/L (3.3-5.1); Sodium 140 mmol/L (135-145); Total Protein 6.7 g/dL (6.5-8.0)
[2024-07-31 00:01] VITALS: BP 112/75; PULSE 76; RESP 20; TEMP 36.9; O2SAT 98
--- OUTSIDE RECORDS SUMMARY | 2024-07-31 00:05 | XMS_ITS | Data Portability ---
Author Organization [place] - [facility], Allergy Address [address] [address] Care Team Providers Care Billing Typist Name Role Phone NATALIYA GRANADO Primary Care Provider [phone] NATALIYA GRANADO Referring Provider Assessment Encounter Date Assessment Date Assessment LastModified by Organization Details LastModified Time 05/07/2024 05/07/2024 18 year old female with eustachian tube dysfunction presents for follow up. Both tubes have fully extruded. She does have a right ear effusion on exam confirmed with tympanometry. I recommended autoinsufflati on several times daily. She will follow up in 3 months. We discussed that she may require another set of tubes if effusion persists. [email or web address] Not available 05/07/2024 12:52:28 Plan of Treatment Reminders Order Date Submit Date Provider Last Modified By Organization Details Last Modified Time Details Appointments Establish ed 15 2024 10:15A M DAVID VALDERRAMA PA-C Not available Not available Not available Lab None recorded. Referral None recorded. Procedures None recorded. Surgeries None recorded. Imaging None recorded. Medication Orders None recorded. Patient TargetsNo targets recorded. Patient InstructionsNo instructions recorded. Reason for Referral None Reported. Results Created Date Observation Date Name Description Value Unit Range Abnormal Flag Note LastModifiedBy Organization Detail LastModifiedTime 11/14/19 audio gram No observ ation record ed. BARCODE Not Available 2023 16:34:24 12/14/19 24 05/03/2023 imagi ng/di agnos tic resul t No observ ation record ed. [email or web address] Not Available 01:15:13 12/14/19 24 05/21/2019 imagi ng/di agnos tic resul t No observ ation record ed. [email or web address] Not Available 01:15:19 12/14/19 24 07/11/2020 imagi ng/di agnos tic resul t No observ ation record ed. [email or web address] Not Available 01:15:38 12/14/19 24 11/08/2019 imagi ng/di agnos tic resul t No observ ation record ed. [email or web address] Not Available 01:16:23 12/14/19 24 11/20/2018 imagi ng/di agnos tic resul t No observ ation record ed. [email or web address] Not Available 01:16:30 12/14/19 24 01/11/2020 imagi ng/di agnos tic resul t No observ ation record ed. [email or web address] Not Available 01:16:38 12/14/19 24 01/13/2023 imagi ng/di agnos tic resul t No observ ation record ed. [email or web address] Not Available 01:16:41 12/14/19 24 05/21/2019 audio gram No observ ation record ed. [email or web address] Not Available 01:18:55 12/14/19 24 07/11/2020 audio gram No observ ation record ed. [email or web address] Not Available 01:19:06 12/14/19 24 11/08/2019 audio gram No observ ation record ed. [email or web address] Not Available 01:19:50 12/14/19 24 11/20/2018 audio gram No observ ation record ed. [email or web address] Not Available 01:20:06 12/14/19 24 01/11/2020 audio gram No observ ation record ed. [email or web address] Not Available 01:20:30 05/08/19 audio gram No observ ation record ed. BARCODE Not Available 2024 08:50:58 Result Notes None recorded. Problems Name Problem SNOMED Code Status Onset Date Resolution Date Notes Provider Name and Address Organization Details Recorded Time Severe obesity 08230377076 104 Active 2022 Morbid (severe) obesity due to excess calories; Note: Date Diagnosed : 01/17/2023 11:10 AM (E66.01) Not Available [facility] 4 02:52:29 Nasal congestio n 77971943 Active 2016 Nasal congestio n; Note: Date Diagnosed : 7 9:54 AM (R09.81) Not Available [facility] 4 02:52:32 Bilateral temporoma ndibular joint pain 36310743549 182144 Active 2020 Arthralgi a of bilateral temporoma ndibular joint; Note: Date Diagnosed : 1 2:10 PM (M26.623) Not Available [facility] 4 02:52:29 Mixed conductiv e and sensorine ural hearing loss of right ear 99616794919 105 Active 2018 Mixed conductiv e and sensorine ural hearing loss, unilatera l, right ear, with unrestric haile hearing on the contralat eral side; Note: Date Diagnosed : 11/20/2018 2:25 PM (H90.71) Not Available [facility] 4 02:52:33 Mixed conductiv e and sensorine ural hearing loss, bilateral 791096851 Active 2022 Mixed conductiv e and sensorine ural hearing loss, bilateral ; Note: Date Diagnosed : 01/13/2023 10:57 AM (H90.6) Not Available [facility] 4 02:52:33 Chronic mucoid otitis media of right middle ear 44383185761 23123 Active 2022 Chronic mucoid otitis media, right ear; Note: Date Diagnosed : 01/24/2023 8:55 AM (H65.31) Not Available [facility] 4 02:52:30 Conductiv e hearing loss, bilateral 390591027 Active 2014 Conductiv e HL, bilateral ; Note: Date Diagnosed : 08/12/2014 11:50 AM (389.06) ; Start Date : 5 Conduct mattie hearing loss, bilateral ; Note: Date Diagnosed : 01/22/2015 2:56 PM (H90.0) Not Available [facility] 4 02:52:30 Bilateral disorder of Eustachia n tubes 21926081655 30385 Active 2015 Other specified disorders of Eustachia n tube, bilateral ; Location: bilateral Note: Date Diagnosed : 12/18/2015 2:55 PM (H69.83) Not Available [facility] 4 02:52:33 Conductiv e hearing loss 16943995 Active 2023 ZENOBIA DIOP [address] [facility],[place] [address], [place], [address] , [facility] 4 10:03:04 Conductiv e hearing loss 79861468 Active 2023 SHANNEN GRAVES MD [address] [facility],[place] [address], [place], [address] , [facility] 4 10:10:27 Bilateral diffuse otitis externa 81224241101 22808 Active 2019 Diffuse otitis externa, bilateral ; Note: Date Diagnosed : 02/25/2020 10:48 AM (H60.313) Not Available [facility] 4 02:52:29 Otorrhea of left ear 19425664629 55797 Active 2015 Otorrhea, left ear; Note: Date Diagnosed : 12/18/2015 3:16 PM (H92.12) Not Available [facility] 4 02:52:30 Otorrhea of right ear 25597142182 77407 Active 2015 Otorrhea, right ear; Note: Date Diagnosed : 01/02/2016 4:23 PM (H92.11) Not Available [facility] 4 02:52:30 Polyp of right middle ear 92169268468 69550 Active 2022 Polyp of right middle ear; Note: Date Diagnosed : 05/06/2022 2:22 PM (H74.41) Not Available [facility] 4 02:52:32 Disorder of right Eustachia n tube 42099069546 44916 Active 2019 Other specified disorders of Eustachia n tube, right ear; Note: Date Diagnosed : 11/08/2019 3:16 PM (H69.81) Not Available [facility] 4 02:52:32 Granuloma tous disorder of the skin and subcutane ous tissue 873381328 Active 2016 Granuloma tous disorder of the skin and subcutane ous tissue, unspecifi ed; Note: Date Diagnosed : 01/24/2017 4:09 PM (L92.9) Not Available [facility] 4 02:52:33 Follow-up visit Active 2017 Medical surveilla nce following completed treatment ; Note: Date Diagnosed : 05/18/2017 11:21 AM (Z09) Not Available [facility] 4 02:52:34 Dysfuncti on of eustachia n tube 81042869 Active 2015 Eustachia n tube dysfuncti on; CMS Risk: low risk CMS Treatment : establish ed problem (to examiner) : stable or improved Condition : stable No te: Date Diagnosed : 05/18/2017 11:15 AM (381.81) Eustach lakshmi tube dysfuncti on; Location: bilateral CMS Risk: low risk CMS Treatment : establish ed problem (to examiner) : stable or improved Condition : stable No te: Date Diagnosed : 01/27/2014 12:47 PM (381.81) Not Available [facility] 4 02:52:34 Problem Notes None recorded. Procedures Surgical History Date Name Laterality Status Provider Name and Address Organization Details Recorded Time 05/07/19 25 Tympanometry (76468) completed KAREN PHILIP, AUD [address] [facility],[address], [address], [place] - [facility] 05/07/2024 10:17:50 11/14/19 24 Comp Audio with Tymps (99823 & 04405) completed KAREN PHILIP, AUD [address] [facility],[address], [address], [place] - [facility] 11/14/2023 10:02:12 Myringotomy Tube Placement completed Paloma Augustin [place] - [facility] [place] 11/14/2023 09:04:58 procedure on wrist completed Paloma Augustin [place] - [facility] 11/14/2023 09:05:04 tonsillectomy and adenoidectomy completed Paloma Augustin [place] [facility] 11/14/2023 09:05:18 Imaging Results Imaging Date Name Status LastModified by [facility] Details LastModified Time 11/14/2023 audiogram completed BARCODE Information no t available 11/14/2023 16:34:24 05/03/2023 imaging/diagno stic result completed Information not available 12/14/2023 01:15:13 05/21/2019 imaging/diagno stic result completed Information not available 12/14/2023 01:15:19 07/11/2020 imaging/diagno stic result completed Information not available 12/14/2023 01:15:38 11/08/2019 imaging/diagno stic result completed Information not available 12/14/2023 01:16:23 11/20/2018 imaging/diagno stic result completed Information not available 12/14/2023 01:16:30 01/11/2020 imaging/diagno stic result completed Information not available 12/14/2023 01:16:38 01/13/2023 imaging/diagno stic result completed Information not available 12/14/2023 01:16:41 05/21/2019 audiogram completed Information not available 12/14/2023 01:18:55 07/11/2020 audiogram completed Information not available 12/14/2023 01:19:06 11/08/2019 audiogram completed Information not available 12/14/2023 01:19:50 11/20/2018 audiogram completed Information not available 12/14/2023 01:20:06 01/11/2020 audiogram completed Information not available 12/14/2023 01:20:30 05/08/2024 audiogram completed BARCODE Information no t available 05/08/2024 08:50:58 Procedure Notes None recorded. Medical Equipment None Reported. Allergies Allergen ID Allergen Name Allergen Category Reaction Reaction Severity Criticality Documentation Date Start Date Code Code System Note Provider Name and Address Organization Details Recorded Time [id number] amoxicill in / clavulana te medicatio n other Not available Not available 09/06/2023 RxNorm React ion: unkno wn, unspe cifie d;; Not Available [facility] 4 01:26:05 Medications Name Sig Start Date Stop Date Status Note LastModified by Organization Details LastModified Time venlafaxi ne ER 37.5 mg capsule,e xtended release 24 hr 2020 active Medicati on ID: [id number] B rand Name: venlafax ine Send Method: E-Prescr ibed Sub s Allowed: subs OK Medic ationGen ericName : venlafax ine Not Available Not Available Not Available acetamino phen 325 mg tablet 11/13 completed Medicati on ID: [id number] D uration Value: 5 Brand Name: acetamin ophen Se nd Method: E-Prescr ibed Sub s Allowed: subs OK Speci al Instruct ion: 3 TABLET BY MOUTH 4 TIMES A DAY,X5 DAYS NEEDED FOR PAIN Med icationG enericNa me: acetamin ophen Me dication ID: [id number] D uration Value: 5 Brand Name: acetamin ophen Se nd Method: E-Prescr ibed Sub s Allowed: subs OK Speci al Instruct ion: 3 TABLET BY MOUTH 4 TIMES A DAY,X5 DAYS NEEDED FOR PAIN Med icationG enericNa me: acetamin ophen Not Available Not Available Not Available venlafaxi ne ER 75 mg capsule,e xtended release 24 hr 11/07 completed Medicati on ID: [id number] D uration Value: 30 Reason: () Brand Name: venlafax ine Send Method: E-Prescr ibed Sub s Allowed: subs OK Medic ationGen ericName : venlafax ine Not Available Not Available Not Available meloxicam 15 mg tablet TAKE 1 TABLET BY MOUTH EVERY DAY WITH FOOD 11/13 completed Not Available Not Available Not Available naltrexon e 50 mg tablet TAKE 1/2 TABLET BY MOUTH EVERY DAY 11/13 completed Not Available Not Available Not Available venlafaxi ne ER 150 mg capsule,e xtended release 24 hr 2020 active Medicati on ID: [id number] B rand Name: venlafax ine Send Method: E-Prescr ibed Sub s Allowed: subs OK Medic ationGen ericName : venlafax ine Not Available Not Available Not Available sumatript an 50 mg tablet TAKE 1 TABLET BY MOUTH EVERY DAY active Not Available Not Available No t Available Ciloxan 0.3 % eye drops 11/13 completed Medicati on ID: [id number] D uration Value: 14 Prescri bed By Name: LOUIS Lau nd Name: Ciloxan Send Method: E-Prescr ibed Sub s Allowed: subs OK Speci al Instruct ion: Instill 4 drops twice a day into the affected ear. Med icationG enericNa me: Ciloxan Medicati on ID: [id number] D uration Value: 14 Prescri bed By Name: LOUIS Lau nd Name: Ciloxan Send Method: E-Prescr ibed Sub s Allowed: subs OK Speci al Instruct ion: Instill 4 drops twice a day into the affected ear. [facility] Ciloxan Not Available Not Available Not Available amoxicill in 250 mg chewable tablet 01/24 completed Medicati on ID: [id number] Du ration Value: 7 Reason: () Brand Name: amoxicil loki Send Method: E-Prescr ibed Sub s Allowed: subs OK Speci al Instruct ion: CHEW ONE TABLET EVERY 6 HOURS. FOLLOW WITH WATER. Kraig Matthews Name: amoxicil loki Not Available Not Available Not Available prazosin 5 mg capsule 2020 active Medicati on ID: [id number] B rand Name: prazosin Send Method: E-Prescr ibed Sub s Allowed: subs OK Medic ationGen ericName : prazosin Not Available Not Available Not Available ofloxacin 0.3 % ear drops Instill 3 drop into both ears twice a day 11/13 completed Medicati on ID: [id number] D uration Value: 3 Prescri bed By Name: Keegan Sandoval nd Name: ofloxaci n Send Method: E-Prescr ibed Sub s Allowed: subs OK Speci al Instruct ion: x 5 days Med icationG enericNa me: ofloxaci n Medica tion ID: [id number] D uration Value: 3 Prescri bed By Name: Keegan Sandoval nd Name: ofloxaci n Send Method: E-Prescr ibed Sub s Allowed: subs OK Speci al Instruct ion: x 5 days Med icationG enericNa me: ofloxaci n Not Available Not Available Not Available lorazepam 0.5 mg tablet TAKE 1 TO 2 TABLETS BY MOUTH PRIOR TO PROCEDUR E 11/13 completed Not Available Not Available Not Available ferrous sulfate 325 mg (65 mg iron) tablet TAKE 1 TABLET BY MOUTH EVERY OTHER DAY active Not Available Not Available No t Available ibuprofen 400 mg tablet 04/11 completed Medicati on ID: [id number] Re ason: () Brand Name: ibuprofe n Send Method: E-Prescr ibed Sub s Allowed: subs OK Medic ationGen ericName : ibuprofe n Not Available Not Available Not Available mupirocin 2 % topical ointment 11/13 completed Medicati on ID: [id number] D uration Value: 14 Brand Name: mupiroci n Send Method: E-Prescr ibed Sub s Allowed: subs OK Medic ationGen ericName : mupiroci n Medica tion ID: [id number] D uration Value: 14 Brand Name: mupiroci n Send Method: E-Prescr ibed Sub s Allowed: subs OK Medic ationGen ericName : mupiroci n Not Available Not Available Not Available epinephri ne 0.3 mg/0.3 mL injection , auto-inje ctor USE DIRECTED FOR ANAPHYLA XIS, THEN CALL 911. active Not Available Not Available No t Available polyethyl augusto glycol 3350 17 gram/dose oral powder 2019 active Medicati on ID: [id number] D uration Value: 7 Brand Name: polyethy tanner glycol 3350 Sen d Method: E-Prescr ibed Sub s Allowed: subs OK Speci al Instruct ion: TAKE 17 GRAMS DISSOLVE D IN 8 OZ JUICE TWICE DAILY UNTIL PROFUSE WATERY DIARRHEA . THEN 17 GRAMS IN AM Medic ationGen ericName : polyethy tanner glycol 3350 Not Available Not Available Not Available ondansetr on 4 mg disintegr ating tablet LET 1 TABLET DISSOLVE ON TOP OF THE TONGUE TWICE A DAY NEEDED 11/13 completed Not Available Not Available Not Available medroxypr ogesteron e 150 mg/mL intramusc ular suspensio n INJECT 1 MILLILIT ER INTRAMUS CULARLY EVERY 3 MONTHS 11/13 completed Not Available Not Available Not Available prazosin 2 mg capsule 2019 active Medicati on ID: [id number] D uration Value: 28 Brand Name: prazosin Send Method: E-Prescr ibed Sub s Allowed: subs OK Medic ationGen ericName : prazosin Not Available Not Available Not Available oxycodone 5 mg tablet Take 1 tablet by mouth every four hours as needed for pain 11/13 completed Medicati on ID: [id number] D uration Value: 3 Prescri bed By Name: Keegan Sandoval nd Name: oxycodon e Send Method: E-Prescr ibed Sub s Allowed: subs OK Medic ationGen ericName : oxycodon e Medica tion ID: [id number] D uration Value: 3 Prescri bed By Name: Keegan Sandoval nd Name: oxycodon e Send Method: E-Prescr ibed Sub s Allowed: subs OK Medic ationGen ericName : oxycodon e Not Available Not Available Not Available TobraDex 0.3 %-0.1 % eye drops,manolo pension 11/13 completed Medicati on ID: [id number] D uration Value: 14 Brand Name: TobraDex Send Method: E-Prescr ibed Sub s Allowed: subs OK Speci al Instruct ion: Instill 4 drops in the right ear BID for 14 days Med icationG enericNa me: TobraDex Medicat ion ID: [id number] D uration Value: 14 Brand Name: TobraDex Send Method: E-Prescr ibed Sub s Allowed: subs OK Speci al Instruct ion: Instill 4 drops in the right ear BID for 14 days Med icationG enericNa me: TobraDex Not Available Not Available Not Available escitalop martina 10 mg tablet 11/07 completed Medicati on ID: [id number] D uration Value: 30 Reason: () Brand Name: escitalo pram oxalate Send Method: E-Prescr ibed Sub s Allowed: subs OK Medic ationGen ericName : escitalo pram oxalate Not Available Not Available Not Available escitalop martina 20 mg tablet 07/11 completed Medicati on ID: [id number] D uration Value: 30 Brand Name: escitalo pram oxalate Send Method: E-Prescr ibed Sub s Allowed: subs OK Medic ationGen ericName : escitalo pram oxalate Not Available Not Available Not Available ciproflox acin 0.3 %-dexamet hasone 0.1 % ear drops,manolo pension Instill 4 drop into right ear twice a day as directed 11/13 completed Medicati on ID: [id number] D uration Value: 14 Brand Name: ciproflo xacin-de xamethas one Send Method: E-Prescr ibed Sub s Allowed: subs OK Speci al Instruct ion: x 14 days Med icationG enericNa me: ciproflo xacin-de xamethas one Medi cation ID: [id number] D uration Value: 14 Brand Name: ciproflo xacin-de xamethas one Send Method: E-Prescr ibed Sub s Allowed: subs OK Speci al Instruct ion: x 14 days Med icationG enericNa me: ciproflo xacin-de xamethas one Not Available Not Available Not Available bupropion HCl XL 300 mg 24 hr tablet, extended release TAKE 1 TABLET DAILY 11/13 completed Not Available Not Available Not Available ProAir HFA 90 mcg/actua tion aerosol inhaler 04/11 completed Medicati on ID: [id number] Du ration Value: 20 Reason: () Brand Name: ProAir HFA Send Method: E-Prescr ibed Sub s Allowed: subs OK Speci al Instruct ion: 2 PUFFS INHALATI ON 4 TIMES A DAY Medi cationGe nericNam e: ProAir HFA Not Available Not Available Not Available melatonin 5 mg tablet 2020 active Medicati on ID: [id number] B rand Name: melatoni n Send Method: E-Prescr ibed Sub s Allowed: subs OK Medic ationGen ericName : melatoni n Not Available Not Available Not Available guanfacin e ER 2 mg tablet,ex tended release 24 hr 2020 active Medicati on ID: [id number] B rand Name: nellifaci ne Send Method: E-Prescr ibed Sub s Allowed: subs OK Medic ationGen ericName : guanfaci ne Not Available Not Available Not Available Aerochamb er Plus Flow-Vu 04/11 completed Medicati on ID: [id number] Du ration Value: 30 Reason: () Brand Name: Aerocham angela Plus Flow-Vu Send Method: E-Prescr ibed Sub s Allowed: subs OK Speci al Instruct ion: USE WITH INHALER BY MOUTH 4 TIMES A DAY,X30 DAYS Med icationG enericNa me: Aerocham angela Plus Flow-Vu Not Available Not Available Not Available Flonase Allergy Relief 50 mcg/actua tion nasal spray,manolo pension 1 spray into both nostrils 2019 active Medicati on ID: [id number] D uration Value: 30 Brand Name: Flonase Allergy Relief S end Method: E-Prescr ibed Sub s Allowed: subs OK Medic ationGen ericName : Flonase Allergy Relief Not Available Not Available Not Available melatonin 10 mg sublingua l tablet 07/11 completed Medicati on ID: [id number] D uration Value: 30 Brand Name: melatoni n Send Method: E-Prescr ibed Sub s Allowed: subs OK Speci al Instruct ion: PLACE 1 TABLET UNDER THE TONGUE NIGHTLY AT BEDTIME. (: NOT COVERED B Y EITHER INS Me dication GenericN larry: melatoni n Not Available Not Available Not Available Incassia 0.35 mg tablet TAKE 1 TABLET BY MOUTH EVERY DAY active Not Available Not Available No t Available Wegovy 1 mg/0.5 mL subcutane ous pen injector INJECT 1 MG SUBCUTAN EOUSLY EVERY WEEK FOR 28 DAYS. 11/13 completed Not Available Not Available Not Available Wegovy 0.25 mg/0.5 mL subcutane ous pen injector INJECT 0.25 MG EVERY WEEK BY SUBCUTAN EOUS ROUTE FOR 28 DAYS. active Not Available Not Available No t Available Wegovy 0.5 mg/0.5 mL subcutane ous pen injector INJECT 0.5 MG EVERY WEEK BY SUBCUTAN EOUS ROUTE FOR 28 DAYS. 11/13 completed Not Available Not Available Not Available Zepbound 5 mg/0.5 mL subcutane ous pen injector INJECT 5 MG SUBCUTAN EOUSLY WEEKLY FOR 28 DAYS active Not Available Not Available No t Available Zepbound 2.5 mg/0.5 mL subcutane ous pen injector INJECT 2.5 MG SUBCUTAN EOUSLY WEEKLY FOR 28 DAYS active Not Available Not Available No t Available Vitals None Recorded Social History None recorded. Functional Status None recorded. Mental Status None recorded. Family History Nothing Reported. Medical History No medical history recorded. Gynecological HistoryNo gynecological history recorded. Obstetrics History GPAL:G 0 P 0 0 0 0 Past Encounters Encounter ID Performer Location Encounter Start Date Encounter Closed Date Diagnosis/Indication Diagnosis SNOMED-CT Code Diagnosis ICD10 Code Diagnosis Note [id number] SHANNEN GRAVES MD [facility] [address] [place] [address] 11/14/2023 08:56:23 11/14/2023 10:10:17 Bilateral disorder of Eustachian tubes [id number] 299145 H69.83 Both tympanosto my tubes have extruded and are sitting in the external auditory canal bilaterall y. These will migrate out on their own. Both tympanic membranes are intact and middle ear spaces are aerated. Audiometri c testing shows mild conductive hearing loss with signs of mild residual conductive hearing loss on the right. Overall adequate eustachian tube function at this point. Recommend continued observatio n and follow-up with PA in 6 months to ensure complete extrusion of both tympanosto my tubes and to reassess eustachian tube function. Conductive hearing loss 97839931 H90.11 Audiologic al evaluation results:Ri ght ear:{{Norm al Mild* M oderate Mo derately-s evere Leonila re Profoun d}} {{hearing sloping to a mild slopi ng to a moderate s loping to moderately severe slo ping to severe slo ping to profound f lat high frequency low frequency* mid frequency cookie bite cifuentes curve}} {{with sen sorineural hearing loss with condu ctive hearing loss with* mixe d hearing loss with}} {{excellen t* good fa ir poor no measurable }} word recognitio n.Left ear:{{Norm al* Mild M oderate Mo derately-s evere Leonila re Profoun d}} {{hearing* sloping to a mild slopi ng to a moderate s loping to moderately severe slo ping to severe slo ping to profound f lat high frequency low frequency mid frequency cookie bite cifuentes curve}} {{with* se nsorineura l hearing loss with condu ctive hearing loss with mixed hearing loss with}} {{excellen t* good fa ir poor no measurable }} word recognitio n. Tympanomet ry:Right Ear:{{Type A Type As Type Ad Type C* Type C, shallow & rounded Ty pe B Type B with large volume Cou ld not maintain a hermetic seal}}Left Ear:{{Type A* Type As Type Ad Type C Type C, shallow & rounded Ty pe B Type B with large volume Cou ld not maintain a hermetic seal}} [id number] ELADIA RIVAS MD [facility] on [address] [place] [address] 05/07/2024 09:49:50 05/07/2024 10:38:45 Dysfunction of eustachian tube 42687215 H69.93 Audiologic al evaluation results: 05/07/2024 Tympanomet ry: Right Ear:{{Type A Type As Type Ad Type C Type C, shallow & rounded Ty pe B* Type B with large volume Cou ld not maintain a hermetic seal}} Left Ear:{{Type A Type As Type Ad Type C* Type C, shallow & rounded Ty pe B Type B with large volume Cou ld not maintain a hermetic seal}} Bilateral disorder of Eustachian tubes [id number] 019764 H69.83 Chronic mu coid otitis media of right middle ear 0386593519 098678 H65.31 Health Concerns Section Related Observation LastModified by Organization Detai ls LastModified Time None Recorded Concern Status LastModified by Organization Details LastModified Time None Recorded Advance Directives Directive None Recorded Payers Encounter Date Sequence Insurance Name Policy Number Policy Kimbrough Covered Member ID Kimbrough Member ID Guarantor Name 11/14/2023 1 [place] [facility] (O) [id number] Luciano Bahena Addie [id number] Marion Addie 11/14/2023 2 [place] Marion E Addie [id number] Marion Addie 05/07/2024 1 [place] [facility] (HMO) [id number] Luciano Bahena Addie [id number] Marion Addie 05/07/2024 2 [place] Marion E Addie [id number] Marion Addie Notes Date Note Type Note Provider Name and Address Organization Details Recorded Time 11/14/2023 text/html Patient with longstanding history of eustachian tube dysfunction and tympanostomy tube placement. She underwent bilateral balloon dilation of the eustachian tube with concurrent placement of short acting tympanostomy tubes in January 2023. Last seen in April 2023 at which point the tympanostomy tubes were still in good position and the patient was noticing significant improvement in her hearing. Noting occasional mild blockage sensation, but no pain or discharge. SHANNEN GRAVES MD [address] [place] [address], [phone], [facility] 11/14/2023 10:11:42 05/07/2024 text/html 18 year old nuvia ge with longstanding eustachian tube dysfunction presents for follow up. She underwent bilateral balloon dilation of the eustachian tube with concurrent placement of short acting tympanostomy tubes in January 2023. At her last office visit both tubes were noted to be extruded and remained in the canal. She reports some muffled hearing intermittently. She admits to a recent cold. ELADIA RIVAS MD [address] [place] [address],[address], [phone], [facility] 05/07/2024 12:55:44 OBGyn Episode No OBEpisode recorded.
--- OUTSIDE RECORDS SUMMARY | 2024-07-31 00:05 | XMS_ITS | Data Portability ---
Author Organization PAUL Arevalo [facility], [employer] Address [address] [place] [id number] Assessment Encounter Date Assessment Date Assessment LastModified by Organization Details LastModified Time 09/15/2023 09/15/2023 The patient was advised to continue a healthy diet and exercise regularly. Preventative care discussed in detail. Eight minutes spent on each counselling about depression, alcohol, obesity, and cardiovascular health. Further preventative care counselling discussed as documented below. 8 Minutes spent on counseling primary and/or secondary prevention of cardiovascular disease, including aspirin use if necessary, and healthy diet. Not available 09/15/2023 12:36:34 10/18/2023 10/18/2023 Per nursing protocol- Medication was injected per patient request for contraception care management. Patient tolerated the injection well with no questions or concerns at this time. Patient to follow up in 3 months for next medication administration. [email or web address] Not available 10/18/2023 13:16:10 11/22/2023 11/22/2023 During this encounter, 2 of the 3 elements of MDM addressed: (1)Number and Complexity of problems: 2 or more stable chronic illnesses (2)Amount/Complex ity of data (need 1 out of 3 categories): (3)Moderate Risk of morbidity from additional diagnostic testing or treatment (one needed): Prescription Drug management. Not available 11/22/2023 12:28:27 01/31/2024 01/31/2024 30 minutes spent on date of service on chart review, direct time spent with patient, and documentation of clinical encounter. Not available 01/31/2024 09:14:20 03/14/2024 03/14/2024 During this encounter, 2 of the 3 elements of MDM addressed: (1)Number and Complexity of problems: 1 or more chronic illness with exacerbation, progression, or side effects of treatment (2)Amount/Complex ity of data (need 1 out of 3 categories): (3)Moderate Risk of morbidity from additional diagnostic testing or treatment (one needed): Prescription Drug management. Not available 03/14/2024 19:21:00 Plan of Treatment Reminders Order Date Submit Date Provider Last Modified By Organization Details Last Modified Time Details Appointments None recorded. Lab CBC w/ auto diff 2023 024 DISPUTANTA [facility], [address], [place], [address], 08:08:21 iron + TIBC + ferritin, serum 2023 024 TRISTAN [facility], [address], [place], [address], 08:08:21 CT + NG RNA, PCR, unspecified specimen 2023 024 DISPUTANTA [facility], [address], [place], [address], 4 10:05:39 Referral plastic surgeon referral 2023 024 [place] [id number] Harjit Matias MD, [address] [place], [address], 4 15:04:03 hand surgeon referral [address] [place] [address] General Surgery Scheduling Dept, [address] [place], [address], 4 13:10:22 Procedures None recorded. Surgeries None recorded. Imaging US, transvagina l 2023 [address] [place] [address] Radiology Central Scheduling, [address] [place], [address], 4 15:28:43 CT, head, w/o contrast 2023 [address] [place] [address] Radiology Central Scheduling, [address], [place], [address], 4 15:28:23 Medication Orders sumatriptan 50 mg tablet 2023 024 [facility][id number], [address] [place], [address], 4 14:36:43 Nathalie 0.35 mg tablet 2023 024 [facility] #1094, [address] [place], [address], 4 09:00:06 Zepbound 2.5 mg/0.5 mL subcutaneou s pen injector 2023 024 [facility]acy #1094, [address] [place], [address], 4 12:27:07 Zepbound 5 mg/0.5 mL subcutaneou s pen injector 2023 024 [facility] #1094, [address] [place], [address], 4 10:58:29 Depo-Traffic Director a 150 mg/mL intramuscul ar suspension 2023 024 [facility] #1094, [address] [place] [address], [address], 4 08:50:03 Patient TargetsNo targets recorded. Patient Instructions Encounter Date Encounter Id Patient Instructions Last Modified By Organization Details Last Modified Time 03/14/2024 [id number] migraine headache: care instructions Not available 03/14/2024 19:21:15 recurring migraine headache: care instructions Not available 03/14/2024 19:21:15 Reason for Referral Hand Surgeon Referral for Ga nglion cyst of left wrist Referring Physician: Erinn Valdivia, Internal Medicine, Encounter Date: 11/22/2023 Plastic Surgeon Referral for Bilateral pendulous breasts Referring Physician: Erinn Valdivia, Internal Medicine, Encounter Date: 03/14/2024 Results Created Date Observation Date Name Description Value Unit Range Abnormal Flag Note LastModifiedBy Organization Detail LastModifiedTime 09/15/19 24 09/20/2023 CHLAM YDIA/ GC AMPLI FICAT ION chlamydia trachomatis, IRA Negati ve negati ve Not Available [facility] ([facility]) [address] [place], [address], 09/20/2023 10:05:39 09/15/19 24 09/20/2023 CHLAM YDIA/ GC AMPLI FICAT ION neisseria gonorrhoeae, IRA Negati ve negati ve Not Available [facility] ([facility]) [address] [place], [address], 09/20/2023 10:05:39 09/28/19 24 09/29/2023 COMP. METAB OLIC PANEL (14) glucose 89 mg/dL 70-99 Not Available [facility] ([facility]) [address] [place], [address], 09/29/2023 12:06:14 09/28/19 24 09/29/2023 COMP. METAB OLIC PANEL (14) BUN 6 mg/dL 6-20 Not Available [facility] ([facility]) [address] [place], [address], 09/29/2023 12:06:14 09/28/19 24 09/29/2023 COMP. METAB OLIC PANEL (14) creatinine 0.88 mg/dL 0.57-1 .00 Not Available [facility] ([facility]) [address] [place], [address], 09/29/2023 12:06:14 09/28/19 24 09/29/2023 COMP. METAB OLIC PANEL (14) eGFR 96 mL/mi n/1.7 3 >59 Not Available [facility] ([facility]) [address] [place], [address], 09/29/2023 12:06:14 09/28/19 24 09/29/2023 COMP. METAB OLIC PANEL (14) BUN/creatini ne ratio 7 9-23 below low normal Not Available [facility] ([facility]) [address] [place], [address], 09/29/2023 12:06:14 09/28/19 24 09/29/2023 COMP. METAB OLIC PANEL (14) sodium 141 mmol/ L 134-14 4 Not Available [facility] ([facility]) [address] [place], [address], 09/29/2023 12:06:14 09/28/19 24 09/29/2023 COMP. METAB OLIC PANEL (14) potassium 4.5 mmol/ L 3.5-5. 2 Not Available [facility] ([facility]) [address] [place], [address], 09/29/2023 12:06:14 09/28/19 24 09/29/2023 COMP. METAB OLIC PANEL (14) chloride 108 mmol/ L 96-106 above high normal Not Available [facility] ([facility]) [address] [place], [address], 09/29/2023 12:06:14 09/28/19 24 09/29/2023 COMP. METAB OLIC PANEL (14) carbon dioxide, total 18 mmol/ L 20-29 below low normal Not Available [facility] ([facility]) [address] [place], [address], 09/29/2023 12:06:14 09/28/19 24 09/29/2023 COMP. METAB OLIC PANEL (14) calcium 9.5 mg/dL 8.7-10 .2 Not Available [facility] ([facility]) [address] [facility] [place], [address], 09/29/2023 12:06:14 09/28/19 24 09/29/2023 COMP. METAB OLIC PANEL (14) protein, total 6.8 g/dL 6.0-8. 5 Not Available [facility] ([facility]) [address] [place], [address], 09/29/2023 12:06:14 09/28/19 24 09/29/2023 COMP. METAB OLIC PANEL (14) albumin 4.4 g/dL 4.0-5. 0 Not Available [facility] ([facility]) [address], [place], [address], 09/29/2023 12:06:14 09/28/19 24 09/29/2023 COMP. METAB OLIC PANEL (14) globulin, total 2.4 g/dL 1.5-4. 5 Not Available [facility] ([facility]) [address] [place], [address], 09/29/2023 12:06:14 09/28/19 24 09/29/2023 COMP. METAB OLIC PANEL (14) A/G ratio 1.8 1.2-2. 2 Not Available [facility] ([facility]) [address] [place], [address], 09/29/2023 12:06:14 09/28/19 24 09/29/2023 COMP. METAB OLIC PANEL (14) bilirubin, total 0.5 mg/dL 0.0-1. 2 Not Available [facility] ([facility]) [address] [place], [address], 09/29/2023 12:06:14 09/28/19 24 09/29/2023 COMP. METAB OLIC PANEL (14) alkaline phosphatase 62 IU/L 42-106 Not Available [facility]) [address], [place], [address], 09/29/2023 12:06:14 09/28/19 24 09/29/2023 COMP. METAB OLIC PANEL (14) AST (SGOT) 26 IU/L 0-40 Not Available [facility] ([facility]) [address] [facility] [place], [address], 09/29/2023 12:06:14 09/28/19 24 09/29/2023 COMP. METAB OLIC PANEL (14) ALT (SGPT) 31 IU/L 0-32 Not Available [facility] ([facility]) [address] [facility] [place], [address], 09/29/2023 12:06:14 09/28/19 24 09/29/2023 LIPID PANEL cholesterol, total 149 mg/dL 100-19 9 Not Available [facility] ([facility]) [address] [facility] [place], [address], 09/29/2023 12:06:15 09/28/19 24 09/29/2023 LIPID PANEL triglyceride s 118 mg/dL 0-149 Not Available [facility]) [address] [facility] [place], [address], 09/29/2023 12:06:15 09/28/19 24 09/29/2023 LIPID PANEL HDL cholesterol 43 mg/dL >39 Not Available [facility]) [address] [facility], [place], [address], 09/29/2023 12:06:15 09/28/19 24 09/29/2023 LIPID PANEL VLDL cholesterol gi 21 mg/dL 5-40 Not Available [facility]) [address] [facility] [place], [address], 09/29/2023 12:06:15 09/28/19 24 09/29/2023 LIPID PANEL LDL chol calc (nih) 85 mg/dL 0-99 Not Available [facility]) [address] [place], [address], 09/29/2023 12:06:15 09/28/19 24 09/29/2023 LIPID PANEL comment: COMMERCIAL COLLECTOR Not Available [facility] ([facility]) [address] [place], [address], 09/29/2023 12:06:15 09/28/19 24 09/29/2023 HEMOG LOBIN A1C hemoglobin A1C 5.1 % 4.8-5. 6 Predi abete s: 5.7 - 6.4 Diabe ritu: >6.4 Glyce noah contr ol for adult s with diabe ritu: <7.0 Not Available [facility] ([facility]) [address] [facility], [place], [address], 09/29/2023 12:06:15 02/06/2002/07/2024 FE+TI BC+FE R iron bind.cap.(TI BC) 391 ug/dL 250-45 0 normal Not Available [facility] ([facility]) [address] [place], [address], 02/07/2024 08:08:21 02/06/20 24 02/07/2024 FE+TI BC+FE R UIBC 344 ug/dL 131-42 5 normal Not Available [facility] ([facility]) [address] [place], [address], 02/07/2024 08:08:21 02/06/20 24 02/07/2024 FE+TI BC+FE R iron 47 ug/dL 27-159 normal Not Available [facility] ([facility]) [address] [place], [address], 02/07/2024 08:08:21 02/06/2002/07/2024 FE+TI BC+FE R iron saturation 12 % 15-55 below low normal Not Available [facility] ([facility]) [address] [place], [address], 02/07/2024 08:08:21 02/06/2002/07/2024 FE+TI BC+FE R ferritin 49 NG/mL 15-150 normal Not Available [facility] ([facility]) [address] [facility], [place], [address], 02/07/2024 08:08:21 02/06/2002/07/2024 CBC WITH DIFFE RENTI AL/PL ATELE T WBC 6.2 x10e3 /uL 3.4-10 .8 normal Not Available [facility] ([facility]) [address] [facility], [place], [address], 02/07/2024 08:08:21 02/06/2002/07/2024 CBC WITH DIFFE RENTI AL/PL ATELE T RBC 4.83 x10e6 /uL 3.77-5 .28 normal Not Available [facility] ([facility]) [address] [place], [address], 02/07/2024 08:08:21 02/06/2002/07/2024 CBC WITH DIFFE RENTI AL/PL ATELE T hemoglobin 13.8 g/dL 11.1-1 5.9 normal Not Available [facility] ([facility]) [address] [facility], [place], [address], 02/07/2024 08:08:21 02/06/2002/07/2024 CBC WITH DIFFE RENTI AL/PL ATELE T hematocrit 41.5 % 34.0-4 6.6 normal Not Available [facility] ([facility]) [address] [place], [address], 02/07/2024 08:08:21 02/06/2002/07/2024 CBC WITH DIFFE RENTI AL/PL ATELE T MCV 86 fL 79-97 normal Not Available [facility] ([facility]) [address] [place], [address], 02/07/2024 08:08:21 02/06/2002/07/2024 CBC WITH DIFFE RENTI AL/PL ATELE T MCH 28.6 pg 26.6-3 3.0 normal Not Available [facility] ([facility]) [address] [facility], [place], [address], 02/07/2024 08:08:21 02/06/20 24 02/07/2024 CBC WITH DIFFE RENTI AL/PL ATELE T MCHC 33.3 g/dL 31.5-3 5.7 normal Not Available [facility] ([facility]) [address] [facility], [place], [address], 02/07/2024 08:08:21 02/06/2002/07/2024 CBC WITH DIFFE RENTI AL/PL ATELE T RDW 12.7 % 11.7-1 5.4 Not Available [facility] ([facility]) [address] [place], [address], 02/07/2024 08:08:21 02/06/2002/07/2024 CBC WITH DIFFE RENTI AL/PL ATELE T platelets 238 x10e3 /uL 150-45 0 normal Not Available [facility] ([facility]) [address] [place], [address], 02/07/2024 08:08:21 02/06/2002/07/2024 CBC WITH DIFFE RENTI AL/PL ATELE T neutrophils 60 % not estab. normal Not Available [facility] ([facility]) [address] [place], [address], 02/07/2024 08:08:21 02/06/2002/07/2024 CBC WITH DIFFE RENTI AL/PL ATELE T lymphs 32 % not estab. normal Not Available [facility] ([facility]) [address] [place], [address], 02/07/2024 08:08:21 02/06/20 24 02/07/2024 CBC WITH DIFFE RENTI AL/PL ATELE T monocytes 6 % not estab. normal Not Available [facility] ([facility]) [address] [facility], [place], [address], 02/07/2024 08:08:21 02/06/2002/07/2024 CBC WITH DIFFE RENTI AL/PL ATELE T eos 1 % not estab. normal Not Available [facility] ([facility]) [address] [facility], [place], [address], 02/07/2024 08:08:21 02/06/2002/07/2024 CBC WITH DIFFE RENTI AL/PL ATELE T basos 0 % not estab. normal Not Available [facility] ([facility]) [address] [facility], [place], [address], 02/07/2024 08:08:21 02/06/2002/07/2024 CBC WITH DIFFE RENTI AL/PL ATELE T immature cells COMMERCIAL COLLECTOR Not Available [facility] ([facility]) [address] [place], [address], 02/07/2024 08:08:21 02/06/2002/07/2024 CBC WITH DIFFE RENTI AL/PL ATELE T neutrophils (absolute) 3.7 x10e3 /uL 1.4-7. 0 normal Not Available [facility] ([facility]) [address] [place], [address], 02/07/2024 08:08:21 02/06/2002/07/2024 CBC WITH DIFFE RENTI AL/PL ATELE T lymphs (absolute) 2.0 x10e3 /uL 0.7-3. 1 normal Not Available [facility] ([facility]) [address] [place], [address], 02/07/2024 08:08:21 02/06/20 24 02/07/2024 CBC WITH DIFFE RENTI AL/PL ATELE T monocytes(ab solute) 0.4 x10e3 /uL 0.1-0. 9 normal Not Available [facility] ([facility]) [address] [facility], [place], [address], 02/07/2024 08:08:21 02/06/2002/07/2024 CBC WITH DIFFE RENTI AL/PL ATELE T eos (absolute) 0.1 x10e3 /uL 0.0-0. 4 normal Not Available [facility] ([facility]) [address] [facility], [place], [address], 02/07/2024 08:08:21 02/06/2002/07/2024 CBC WITH DIFFE RENTI AL/PL ATELE T baso (absolute) 0.0 x10e3 /uL 0.0-0. 2 normal Not Available [facility] ([facility]) [address] [facility], [place], [address], 02/07/2024 08:08:21 02/06/2002/07/2024 CBC WITH DIFFE RENTI AL/PL ATELE T immature granulocytes 1 % not estab. Not Available [facility] ([facility]) [address] [facility], [place], [address], 02/07/2024 08:08:21 02/06/2002/07/2024 CBC WITH DIFFE RENTI AL/PL ATELE T immature grans (abs) 0.0 x10e3 /uL 0.0-0. 1 Not Available [facility] ([facility]) [address] [facility], [place], [address], 02/07/2024 08:08:21 02/06/2002/07/2024 CBC WITH DIFFE RENTI AL/PL ATELE T NRBC COMMERCIAL COLLECTOR Not Available [facility] ([facility]) [address] [facility], [place], [address], 02/07/2024 08:08:21 02/06/2002/07/2024 CBC WITH DIFFE RENTI AL/PL ATELE T hematology comments: COMMERCIAL COLLECTOR Not Available [facility] ([facility]) [address] [facility], [place], [address], 02/07/2024 08:08:21 03/13/20 24 03/13/2024 CBC WITH DIFFE RENTI AL/PL ATELE T WBC 5.2 x10e3 /uL 3.4-10 .8 normal Eff ectiv e Decem angela 2023 profi luma [id number] 5 WBC will be made* * non-o rdera ble as a stand -francesco e order code. Not Available [facility] ([facility]) [address] [facility], [place], [address], 03/14/2024 08:09:57 03/13/20 24 03/13/2024 CBC WITH DIFFE RENTI AL/PL ATELE T RBC 4.69 x10e6 /uL 3.77-5 .28 normal Not Available [facility] ([facility]) [address] [facility], [place], [address], 03/14/2024 08:09:57 03/13/20 24 03/13/2024 CBC WITH DIFFE RENTI AL/PL ATELE T hemoglobin 13.5 g/dL 11.1-1 5.9 normal Not Available [facility] ([facility]) [address] [place], [address], 03/14/2024 08:09:57 03/13/20 24 03/13/2024 CBC WITH DIFFE RENTI AL/PL ATELE T hematocrit 41.3 % 34.0-4 6.6 normal Not Available [facility] ([facility]) [address] [place], [address], 03/14/2024 08:09:57 03/13/20 24 03/13/2024 CBC WITH DIFFE RENTI AL/PL ATELE T MCV 88 fL 79-97 normal Not Available [facility] ([facility]) [address] [place], [address], 03/14/2024 08:09:57 03/13/20 24 03/13/2024 CBC WITH DIFFE RENTI AL/PL ATELE T MCH 28.8 pg 26.6-3 3.0 normal Not Available [facility] ([facility]) [address] [facility], [place], [address], 03/14/2024 08:09:57 03/13/20 24 03/13/2024 CBC WITH DIFFE RENTI AL/PL ATELE T MCHC 32.7 g/dL 31.5-3 5.7 normal Not Available [facility] ([facility]) [address] [place], [address], 03/14/2024 08:09:57 03/13/20 24 03/13/2024 CBC WITH DIFFE RENTI AL/PL ATELE T RDW 12.6 % 11.7-1 5.4 Not Available [facility] ([facility]) [address] [facility], [place], [address], 03/14/2024 08:09:57 03/13/20 24 03/13/2024 CBC WITH DIFFE RENTI AL/PL ATELE T platelets 216 x10e3 /uL 150-45 0 normal Not Available [facility] ([facility]) [address] [facility], [place], [address], 03/14/2024 08:09:57 03/13/20 24 03/13/2024 CBC WITH DIFFE RENTI AL/PL ATELE T neutrophils 57 % not estab. normal Not Available [facility] ([facility]) [address] [place], [address], 03/14/2024 08:09:57 03/13/20 24 03/13/2024 CBC WITH DIFFE RENTI AL/PL ATELE T lymphs 34 % not estab. normal Not Available [facility] ([facility]) [address] [place], [address], 03/14/2024 08:09:57 03/13/20 24 03/13/2024 CBC WITH DIFFE RENTI AL/PL ATELE T monocytes 7 % not estab. normal Not Available [facility] ([facility]) [address] [place], [address], 03/14/2024 08:09:57 03/13/20 24 03/13/2024 CBC WITH DIFFE RENTI AL/PL ATELE T eos 1 % not estab. normal Not Available [facility] ([facility]) [address] [place], [address], 03/14/2024 08:09:57 03/13/20 24 03/13/2024 CBC WITH DIFFE RENTI AL/PL ATELE T basos 0 % not estab. normal Not Available [facility] ([facility]) [address] [place], [address], 03/14/2024 08:09:57 03/13/20 24 03/13/2024 CBC WITH DIFFE RENTI AL/PL ATELE T immature cells COMMERCIAL COLLECTOR Not Available [facility] ([facility]) [address] [place], [address], 03/14/2024 08:09:57 03/13/20 24 03/13/2024 CBC WITH DIFFE RENTI AL/PL ATELE T neutrophils (absolute) 3.0 x10e3 /uL 1.4-7. 0 normal Not Available [facility] ([facility]) [address] [place], [address], 03/14/2024 08:09:57 03/13/20 24 03/13/2024 CBC WITH DIFFE RENTI AL/PL ATELE T lymphs (absolute) 1.8 x10e3 /uL 0.7-3. 1 normal Not Available [facility] ([facility]) [address] [place], [address], 03/14/2024 08:09:57 03/13/20 24 03/13/2024 CBC WITH DIFFE RENTI AL/PL ATELE T monocytes(ab solute) 0.4 x10e3 /uL 0.1-0. 9 normal Not Available [facility] ([facility]) [address] [facility], [place], [address], 03/14/2024 08:09:57 03/13/20 24 03/13/2024 CBC WITH DIFFE RENTI AL/PL ATELE T eos (absolute) 0.1 x10e3 /uL 0.0-0. 4 normal Not Available [facility] ([facility]) [address] [facility], [place], [address], 03/14/2024 08:09:57 03/13/20 24 03/13/2024 CBC WITH DIFFE RENTI AL/PL ATELE T baso (absolute) 0.0 x10e3 /uL 0.0-0. 2 normal Not Available [facility] ([facility]) [address] [facility], [place], [address], 03/14/2024 08:09:57 03/13/20 24 03/13/2024 CBC WITH DIFFE RENTI AL/PL ATELE T immature granulocytes 1 % not estab. Not Available [facility] ([facility]) [address] [facility], [place], [address], 03/14/2024 08:09:57 03/13/20 24 03/13/2024 CBC WITH DIFFE RENTI AL/PL ATELE T immature grans (abs) 0.1 x10e3 /uL 0.0-0. 1 Not Available [facility] ([facility]) [address] [place], [address], 03/14/2024 08:09:57 03/13/20 24 03/13/2024 CBC WITH DIFFE RENTI AL/PL ATELE T NRBC COMMERCIAL COLLECTOR Not Available [facility] ([facility]) [address] [place], [address], 03/14/2024 08:09:57 03/13/20 24 03/13/2024 CBC WITH DIFFE RENTI AL/PL ATELE T hematology comments: COMMERCIAL COLLECTOR Not Available [facility] ([facility]) [address] [facility], [place], [address], 03/14/2024 08:09:57 03/13/20 24 03/14/2024 RAGHU TIN ferritin 39 NG/mL 15-150 normal Not Available [facility] ([facility]) [address] [facility], [place], [address], 03/14/2024 08:09:57 02/14/20 24 02/13/2024 US, trans vagin al US Pelvic Transv aginal Reason : G44.52 ; Clinic al Questi on(s): Other: COMPAR SARAH: 020 pelvic ultras ound. TECHNI QUE: Transa bdomin al and transv aginal ultras ound with graysc mague and color Dopple r analys is. FINDIN GS: UTERUS : Size: 5.9 x 2.8 x 3.1 cm, volume 26.7 cc. Endome trial thickn ess: 0.3 cm. Morpho logy: Normal config uratio n and echote xture. Trace fluid within the cervix . RIGHT OVARY: Size: 4.8 x 2.1 x 2.5 cm, volume 13.1 cc. Morpho logy: Normal echote xture. No pathol ogic cysts or mass. Da us small periph eral follic les, number ing greate r than 20. Normal color Dopple r appear ance. LEFT OVARY: Size: 2.7 x 1.9 x 2.1 cm, volume 5.6 cc. Morpho logy: Normal echote xture. No pathol ogic cysts or mass. Da us small periph eral follic les, number ing less than 20. Normal color Dopple r appear ance. ADNEXA : Normal . No adnexa l masses or fluid collec tions. IMPRES SOHA: 1. Unrema rkable uterus . 2. Ovarie s appear normal and contai n da us periph eral follic les, number ing greate r than 20 on the right. This findin g is unreli able for diagno sis of PCOS in patien t's who are within 8 years of menarc he or less than 20 years of age, given high incide nce of multif ollicu lar ovarie s in this life stage. Correl ate with age at menarc he and sympto ms. WSN: [id number] Orderi ng Physic lakshmi: Erinn Valdivia Dictat ed By: Del Diaz MD Dictat ed Date/T saúl: 10:33 a Review ed By: Del Diaz MD Signed By: Del Diaz MD Signed Date/T saúl: 10:33 am Transc ribed By: ART Transc ribed Date/T saúl: 10:21 am Patien t Class: 5 [facility] ([facility]) [address] , [place], [address], 03/14/2024 19:21:05 02/22/20 24 02/22/2024 CT, head + brain , w/o contr ast CT Head/B rain W/O Contra st INDICA TION: Reason : G44.52 ; TECHNI QUE: Noncon trast head CT using axial techni que and recons tructe d in axial and benjamin l planes . Iterat mattie recons tructi on techni ques are used to optimi ze dose and image qualit y. CTDIvo l Head: 47.80 mGy, DLP Head: 772 mGy*cm . COMPAR SARAH: 021 FINDIN GS: Coin Teller view findin gs, lines and tubes: None. BRAIN AND EXTRA- AXIAL SPACES : No parenc hymal hemorr shima, midlin e shift, or mass effect . Bhakta-w parmjit matter differ entiat ion is well preser pauline. No acute infarc t. Ventri cles, sulci, and basila r cister ns are normal . No white matter lesion s. No subara chnoid hemorr shima. No subdur al or epidur al collec tion. CALVAR IUM, SKULL BASE, AND SOFT TISSUE S: No fractu res or suspic ious bony lesion s. The parana niall sinuse s and mastoi d air cells are clear. Visual ized orbits and globes are intact . The extrac ranial soft tissue s are unrema rkable . IMPRES SOHA: Normal . No findin gs to accoun t for headac he. WSN: [id number] Orderi ng Physic lakshmi: Erinn Valdivia Dictat ed By: Tone Collins MD Dictat ed Date/T saúl: 4:44 pm Review ed By: Tone Collins MD Signed By: Tone Collins MD Signed Date/T saúl: 4:44 pm Transc ribed By: ART Transc ribed Date/T saúl: 4:42 pm Patien t Class: 5 [facility] (Outpt Imaging) [address] [place] [address], [address], 03/14/2024 19:21:04 Result Notes None recorded. Problems Name Problem SNOMED Code Status Onset Date Resolution Date Notes Provider Name and Address Organization Details Recorded Time Severe obesity 4371654251401 4 Active 2023 Erinn Valdivia NP [address] [address], [place], [address], [place] [facility] 4 11:15:01 Nausea 864047284 Active 2023 Erinn Valdivia NP [address] [address], [place], [address], [place] [facility] 4 07:48:26 Ganglion cyst of left wrist 9469360876994 00 Active 2023 Erinn Valdivia NP [address] [address], [place], [address], [place] [facility] 4 10:50:05 New daily persistent headache 7054548566681 05 Active 2023 Erinn Valdivia NP [address] [address], [place], [address], [place] [facility] 4 08:48:36 Irregular intermenstr ual bleeding 44257674 Active 2023 Erinn Valdivia, COMMERCIAL [employer]OR [address], [place], [address], [place] [facility] 4 08:57:05 Iron deficiency without anemia 004286575 Active 2023 Erinn Vladivia, COMMERCIAL COLLECTOR [address], [place], [address], [place] [facility] 4 11:14:24 Bilateral pendulous breasts 0996871620170 9103 Active 2023 Erinn Valdivia, COMMERCIAL COLLECTOR [address], [place], [address], [place] [facility] 4 14:20:42 Migraine 08689040 Active 2023 Erinn Valdivia, COMMERCIAL COLLECTOR [address] [facility] [address], [place], [address], [place] [facility] 4 14:34:31 Amenorrhea 91189660 Active 2023 Erinn Valdivia, COMMERCIAL COLLECTOR [address] [facility] [address], [place], [address], [place] [facility] 4 19:18:34 Polycystic ovary syndrome 023577570 Active 2023 Erinn Valdivia, COMMERCIAL COLLECTOR [address] [facility], [address], [place], [address], [place] [facility] 4 19:18:54 Problem Notes None recorded. Procedures Surgical History Date Name Laterality Status Provider Name and Address Organization Details Recorded Time 9 ENT Surgery completed Abby Hopkins [place] [facility] 11/04/2022 09:55:22 Imaging Results Imaging Date Name Status LastModified by Organization Details LastModified Time 02/13/2024 US, transvaginal completed [address] (Outpt Imaging) [address] [place], [address], 03/14/2024 19:21:05 02/22/2024 CT, head + brain, w/o contrast completed [address] (Outpt Imaging) [address] [place], [address], 03/14/2024 19:21:04 Procedure Notes None recorded. Medical Equipment None Reported. Allergies Allergen ID Allergen Name Allergen Category Reaction Reaction Severity Criticality Documentation Date Start Date Code Code System Note Provider Name and Address Organization Details Recorded Time 4054 amoxicill in medicatio n anaphylax is severe Not available 11/04/2022 723 RxNorm Abby Sandeep null, [place] [facility] 3 09:55:02 4055 Augmentin medicatio n anaphylax is diarrhea rash moderate severe severe Not available 11/04/2022 30792 2 RxNorm Abby Sandeep null, [place] [facility] 3 09:55:02 4056 honey bee venom medicatio n anaphylax is severe Not available 11/04/2022 77990 7 RxNorm Abby Sandeep null, [place] [facility] 3 09:55:02 5096 benzalkon ium chloride medicatio n Not available Not available Not available 05/19/2023 1379 RxNorm Deborah Burlingha m null, [place] [facility] 4 15:37:51 Medications Name Sig Start Date Stop Date Status Note LastModified by Organization Details LastModified Time meloxicam 15 mg tablet TAKE 1 TABLET BY MOUTH EVERY DAY WITH FOOD active Not Available Not Available No t Available naltrexone 50 mg tablet TAKE 1/2 TABLET BY MOUTH EVERY DAY 08/08 completed Not Available Not Available Not Available sumatriptan 50 mg tablet Take 50 mg every day by oral route. active Not Available Not Available No t Available bupropion HCl SR 100 mg tablet,12 hr sustained-r elease TAKE 1 TABLET BY MOUTH EVERY DAY 11/03 completed Not Available Not Available Not Available ofloxacin 0.3 % ear drops 02/18 completed Not Available Not Available Not Available lorazepam 0.5 mg tablet TAKE 1 TO 2 TABLETS BY MOUTH PRIOR TO PROCEDURE active Not Available Not Available No t Available Depo-Traffic Director a 150 mg/mL intramuscul ar suspension Inject 1 mL every 3 months by intramusc ular route as directed. 01/30 completed Not Available Not Available Not Available ferrous sulfate 325 mg (65 mg iron) tablet TAKE 1 TABLET BY MOUTH EVERY OTHER DAY 11/20 /2024 completed Not Available Not Available Not Available hydroxyzine HCl 25 mg tablet TAKE 1-2 TABLETS EVERY 4 HOURS NEEDED FOR FLYING 11/03 completed Not Available Not Available Not Available epinephrine 0.3 mg/0.3 mL injection, auto-inject or USE DIRECTED FOR ANAPHYLAX IS, THEN CALL 911. active Not Available Not Available No t Available methylpredn isolone 4 mg tablets in a dose pack TAKE 6 TABLETS ON DAY 1 DIRECTED ON PACKAGE AND DECREASE BY 1 TAB EACH DAY FOR A TOTAL OF 6 DAYS 11/03 completed Not Available Not Available Not Available ondansetron 4 mg disintegrat ing tablet LET 1 TABLET DISSOLVE ON TOP OF THE TONGUE TWICE A DAY NEEDED active Not Available Not Available No t Available Ventolin HFA 90 mcg/actuati on aerosol inhaler INHALE 2 PUFFS INTO THE LUNGS EVERY 4 HOURS NEEDED FOR WHEEZE active Not Available Not Available No t Available oxycodone 5 mg tablet 02/18 completed Not Available Not Available Not Available bupropion HCl SR 200 mg tablet,12 hr sustained-r elease TAKE 1 TABLET BY MOUTH EVERY DAY 11/03 completed Not Available Not Available Not Available cyclobenzap rine 5 mg tablet TAKE 1 TABLET BY MOUTH THREE TIMES A DAY 11/03 completed Not Available Not Available Not Available ciprofloxac in 0.3 %-dexametha sone 0.1 % ear drops,suspe nsion INSTILL 4 DROP INTO RIGHT EAR TWICE A DAY DIRECTED FOR 14 DAYS 11/03 completed Not Available Not Available Not Available bupropion HCl XL 300 mg 24 hr tablet, extended release TAKE 1 TABLET DAILY active Not Available Not Available No t Available [facility] spacer INHALE 1 EACH INTO THE LUNGS EVERY 4 HOURS NEEDED. active Not Available Not Available No t Available Xulane 150 mcg-35 mcg/24 hr transdermal patch APPLY 1 PATCH TOPICALLY EVERY WEEK 11/03 completed Not Available Not Available Not Available Incassia 0.35 mg tablet TAKE 1 TABLET BY MOUTH EVERY DAY active Not Available Not Available No t Available Wegovy 1 mg/0.5 mL subcutaneou s pen injector INJECT 1 MG SUBCUTANE OUSLY EVERY WEEK FOR 28 DAYS. 11/21 completed Not Available Not Available Not Available Wegovy 0.25 mg/0.5 mL subcutaneou s pen injector INJECT 0.25 MG EVERY WEEK BY SUBCUTANE OUS ROUTE FOR 28 DAYS. 11/21 completed Not Available Not Available Not Available Wegovy 0.5 mg/0.5 mL subcutaneou s pen injector INJECT 0.5 MG EVERY WEEK BY SUBCUTANE OUS ROUTE FOR 28 DAYS. 11/21 completed Not Available Not Available Not Available Flowflex COVID-19 Antigen Home Test kit USE DIRECTED 11/03 completed Not Available Not Available Not Available Zepbound 5 mg/0.5 mL subcutaneou s pen injector INJECT 5 MG SUBCUTANE OUSLY WEEKLY FOR 28 DAYS active Not Available Not Available No t Available Zepbound 2.5 mg/0.5 mL subcutaneou s pen injector INJECT 2.5 MG SUBCUTANE OUSLY WEEKLY FOR 28 DAYS active Not Available Not Available No t Available Vitals Date Recorded Body height Heart rate Body mass index (BMI) Body mass index (BMI) Percentile per age and sex Body weight Oxygen saturation Oxygen saturation in Arterial blood by Pulse oximetry Systolic blood pressure Diastolic blood pressure Provider Name and Address Organization Details Last Updated DateTime 4 165.1 cm 83 /min 48.1 kg/m2 99 % 006100. 19 g 97 % 97 % 134 mm[Hg] 78 mm[Hg] [address], [address], [place] [facility] 4 10:05:58 Date Recorded Body height Heart rate Body mass index (BMI) Percentile per age and sex Body mass index (BMI) Body weight Oxygen saturation Oxygen saturation in Arterial blood by Pulse oximetry Systolic blood pressure Diastolic blood pressure Provider Name and Address Organization Details Last Updated DateTime 4 165.1 cm 101 /min 99 % 48.3 kg/m2 398701. 79 g 98 % 98 % 122 mm[Hg] 70 mm[Hg] [address] [place], [address], [place] [facility] 4 14:06:11 Social History Question Answer Notes LastModified by Organizat ion Details LastModified Time Tobacco Smoking Status Smoker, Current Status Unknown Abby Hopkins null, [place] [facility] 11/04/2022 09:55:16 Do You Have An Advance Directive? No Information not available 11/04/2022 What Is Your Level Of Alcohol Consumption? Occasional Information not available 11/04/2022 Are You Currently Employed? Yes Information not available 11/04/2022 Do You Or Have You Ever Used Smokeless Tobacco? [id number] Information not available 11/04/2022 How Much Tobacco Do You Smoke? No Information not available 11/04/2022 Do You Use Any Illicit Or Recreational Drugs? Yes Information not available 11/04/2022 Sex: Female Functional Status None recorded. Mental Status None recorded. Family History Relationship Description Onset Age of this Age Resolved Age Notes LastModified by Organization Details LastModified Time Mother Alcohol abuse pt. added direct ly (11/03) API-13 Not available 11/03/2022 14:40:37 Mother Anxiety disorder pt. added direct ly (11/03) API-13 Not available 11/03/2022 14:41:26 Mother Asthma pt. added direct ly (11/03) API-13 Not available 11/03/2022 14:41:49 Mother Attention deficit hyperactivit y disorder pt. added direct ly (11/03) API-13 Not available 11/03/2022 14:42:15 Mother Headache pt. added direct ly (11/03) API-13 Not available 11/03/2022 14:43:20 Mother Hypertensive disorder pt. added direct ly (11/03) API-13 Not available 11/03/2022 14:44:09 Mother Mental disorder pt. added direct ly (11/03) API-13 Not available 11/03/2022 14:45:00 Mother Substance abuse pt. added direct ly (11/03) API-13 Not available 11/03/2022 14:45:59 Maternal Aunt Alcohol abuse pt. added direct ly (11/03) API-13 Not available 11/03/2022 14:40:37 Maternal Aunt Anxiety disorder pt. added direct ly (11/03) API-13 Not available 11/03/2022 14:41:26 Maternal Aunt Headache pt. added direct ly (11/03) API-13 Not available 11/03/2022 14:43:20 Maternal Aunt Hypertensive disorder pt. added direct ly (11/03) API-13 Not available 11/03/2022 14:44:09 Maternal Aunt Mental disorder pt. added direct ly (11/03) API-13 Not available 11/03/2022 14:45:00 Unspecified Relation Alzheimer's disease pt. added direct ly (11/03) API-13 Not available 11/03/2022 14:41:00 Unspecified Relation Asthma pt. added direct ly (11/03) API-13 Not available 11/03/2022 14:41:49 Unspecified Relation Cerebrovascu lar accident pt. added direct ly (11/03) API-13 Not available 11/03/2022 14:42:30 Unspecified Relation Dementia pt. added direct ly (11/03) API-13 Not available 11/03/2022 14:42:41 Unspecified Relation Heart disease pt. added direct ly (11/03) API-13 Not available 11/03/2022 14:43:33 Unspecified Relation Malignant neoplastic disease pt. added direct ly (11/03) API-13 Not available 11/03/2022 14:44:38 Unspecified Relation Myocardial infarction pt. added direct ly (11/03) API-13 Not available 11/03/2022 14:45:17 Father Anxiety disorder pt. added direct ly (11/03) API-13 Not available 11/03/2022 14:41:26 Father Headache pt. added direct ly (11/03) API-13 Not available 11/03/2022 14:43:20 Father Malignant neoplastic disease pt. added direct ly (11/03) API-13 Not available 11/03/2022 14:44:38 Father Substance abuse pt. added direct ly (11/03) API-13 Not available 11/03/2022 14:45:59 Brother Anxiety disorder pt. added direct ly (11/03) API-13 Not available 11/03/2022 14:41:26 Brother Attention deficit hyperactivit y disorder pt. added direct ly (11/03) API-13 Not available 11/03/2022 14:42:16 Brother Mental disorder pt. added direct ly (11/03) API-13 Not available 11/03/2022 14:45:00 Maternal Grandmother Anxiety disorder pt. added direct ly (11/03) API-13 Not available 11/03/2022 14:41:26 Maternal Grandmother Headache pt. added direct ly (11/03) API-13 Not available 11/03/2022 14:43:20 Maternal Grandmother Hypercholest erolemia pt. added direct ly (11/03) API-13 Not available 11/03/2022 14:43:58 Maternal Grandmother Hypertensive disorder pt. added direct ly (11/03) API-13 Not available 11/03/2022 14:44:09 Maternal Grandfather Arthritis pt. added direct ly (11/03) API-13 Not available 11/03/2022 14:41:35 Maternal Grandfather Asthma pt. added direct ly (11/03) API-13 Not available 11/03/2022 14:41:49 Maternal Grandfather Headache pt. added direct ly (11/03) API-13 Not available 11/03/2022 14:43:20 Maternal Grandfather Hypercholest erolemia pt. added direct ly (11/03) API-13 Not available 11/03/2022 14:43:58 Maternal Grandfather Obese pt. added direct ly (11/03) API-13 Not available 11/03/2022 14:45:34 Maternal Grandfather Sleep disorder pt. added direct ly (11/03) API-13 Not available 11/03/2022 14:45:47 Maternal Uncle Obese pt. added direct ly (11/03) API-13 Not available 11/03/2022 14:45:34 Paternal Aunt Substance abuse pt. added direct ly (11/03) API-13 Not available 11/03/2022 14:45:59 Medical History Condition Response Anxiety Disorder Y Allergies/Hayfever Y Obesity Y Ear or Hearing Problems Y Eczema Y Asthma Y Depression Y ADD/ADHD Y Constipation Y Headaches Y Mental Illness Y Gynecological HistoryNo gynecological history recorded. Obstetrics History GPAL:G 0 P 0 0 0 0 Immunizations Vaccine Type Date Status Note Provider Nam e and Address Organization Details Recorded Time HPV9 1 completed Abby Sandeep null, [place] [facility] 11/04/2022 09:55:29 HPV9 0 completed Abby Sandeep null, [place] [facility] 11/04/2022 09:55:29 COVID-19, mRNA, LNP-S, PF, 30 mcg/0.3 mL dose 1 completed Abby Sandeep null, [place] [facility] 11/04/2022 09:55:29 COVID-19, mRNA, LNP-S, PF, 30 mcg/0.3 mL dose, galen-sucrose 2 completed Abby Sandeep null, [place] [facility] 11/04/2022 09:55:29 COVID-19, mRNA, LNP-S, PF, 30 mcg/0.3 mL dose, galen-sucrose 2 completed Abby Sandeep null, [place] [facility] 11/04/2022 09:55:29 meningococcal MCV4P 0 completed Abby Sandeep null, [place] [facility] 11/04/2022 09:55:29 Influenza, split virus, quadrivalent, PF 8 completed Abby Sandeep null, [place] [facility] 11/04/2022 09:55:29 Influenza, split virus, quadrivalent, PF 6 completed Abby Sandeep null, [place] [facility] 11/04/2022 09:55:29 Influenza, split virus, quadrivalent, PF 1 completed Abby Sandeep null, [place] [facility] 11/04/2022 09:55:29 Influenza, split virus, quadrivalent, PF 0 completed Abby Sandeep null, [place] [facility] 11/04/2022 09:55:29 Influenza, split virus, quadrivalent, PF 2 completed Abby Sandeep null, [place] [facility] 11/04/2022 09:55:29 Influenza, split virus, quadrivalent, PF 3 completed Deborah Villafana zenia, [place] [facility] 02/18/2023 13:22:13 Tdap 3 completed Erinn Valdivia NP [address] [address], [place], [address], [place] [facility] 11/10/2022 08:48:37 Hep A-Hep B 3 completed Deborah Villafana zenia, [place] [facility] 01/30/2024 08:28:59 Influenza, split virus, trivalent, PF 4 completed Erinn Valdivia NP [address] [facility] [address], [place], [address], [place] [facility] 03/14/2024 19:12:46 Past Encounters Encounter ID Performer Location Encounter Start Date Encounter Closed Date Diagnosis/Indication Diagnosis SNOMED-CT Code Diagnosis ICD10 Code Diagnosis Note [id number] Erinn Valdivia NP Main Office [address] [place] [address] [place] [address] 11/04/2022 09:51:22 11/04/2022 10:38:05 Contraception education 562711859 Z30.09 Pt educated on the different forms of BC available. Pt says that she has tried the pill and the implant. Pt wishes to try the shot and does not have an interest in the IUD or Nuva Ring. Needs test before nursing administer s. Weight gain 1155293 R63. 5 Check labs for any underlying causes. If absent, consider nutrition referral. Obesity 667655295 E66.9 As above. Check labs. F/u in 2-4 weeks. Screening for cardiovascular system disease 580857848 Z13.6 [id number] Erinn Valdivia NP Main Office [address] [place] [address] [address] [place] [address] 11/09/2022 11:19:48 11/09/2022 12:00:29 Contraception education 727516257 Z30.09 Wound of skin 333893097 T14.8XXA no s s/x of infection, pt is due for updated Td. both Gr-mother and pt not sure when last one given Active or passive immunization 532695934 Z23 [id number] Erinn Valdivia NP Main Office [address] [place] [address] [place] [address] 11/19/2022 11:21:53 11/19/2022 12:08:42 Obesity 299450707 E66.9 reviewed heart healthy diet, suggest incorporat ing healthy high fiber and high protein foods. She is agreeable to nutritioni st referral. Could consider GLP 1 agonist in the future, f/u 3 months after she has seen nutritioni st and also PT. Bilateral pendulous breasts 3080406889 1315232 N64.89 Desires reduction, due to upper back pain. Pt has upcoming appt with PT to address upper back pain, f/u after this. [id number] Derrek Lucia Mock DO Main Office [address] [facility] [address] [place] [address] 01/25/2023 15:21:33 01/25/2023 15:34:30 Contraception education 075121740 Z30.09 [id number] Erinn Valdivia NP Main Office [address] [place] [address] [place] [address] 02/18/2023 13:19:44 02/18/2023 13:51:00 Bilateral pendulous breasts 6451530404 4055487 N64.89 Desires reduction, due to upper back pain. PT has not been helpful. Will place referral to plastic surgeon. Obesity 713151862 E66.9 reviewed heart healthy diet, suggest incorporat ing healthy high fiber and high protein foods. I advised her to check with insurance company to find a nutritioni st who she thinks could be a good fit. I did review use of wellbutrin /naltrexon e, topiramate /phentermi ne and GLP1 agonists for weight reduction. I also reviewed possibly referral to bariatric surgeon to discuss surgical procedure. Will add low dose naltrexone , and f/u 3 months. Advised on possible s/e. [id number] Erinn Valdivia NP Main Office [address] [place] [address],[facility] [address] [place] [address] 04/15/2023 13:27:21 04/15/2023 13:44:01 Contraception care management 607055943 Z30.9 [id number] Erinn Valdivia NP Main Office [address] [place] [address] [place] [address] 05/19/2023 15:34:24 05/19/2023 16:10:56 Morbid obesity 798361944 E66.01 reviewed heart healthy diet, suggest incorporat ing healthy high fiber and high protein foods. I advised her to check with insurance company to find a nutritioni st who she thinks could be a good fit. I did review use of wellbutrin /naltrexon e, topiramate /phentermi ne and GLP1 agonists for weight reduction. I also reviewed possibly referral to bariatric surgeon to discuss surgical procedure. Increase naltrexone to 50 mg daily, can try in divided doses as her binges occur at night.Disc ussed that GLP1 agonist would definitely offer more robust weight loss benefits and again reviewed mechanism of action, s/e, administra tion. She does not want to start for now. [id number] Erinn Valdivia NP Main Office [address] [place] [address],[address] [place] [address] 06/28/2023 08:17:19 06/28/2023 08:56:22 Upper respiratory infection 45610921 J06.9 [id number] Erinn Valdivia NP Main Office [address] [place] [address],[address] [place] [address] 07/18/2023 13:43:34 07/18/2023 14:01:36 Contraception care management 800198282 Z30.9 [id number] Erinn Valdivia NP Main Office [address] [place] [address],[address] [place] [address] 08/09/2023 11:02:22 08/09/2023 11:36:03 Severe obesity 2892179432 9104 E66.01 Dietary modificati ons, increased exercise has not produced significan t weight loss.Naltr exone not helpful and also caused nausea.Cou ld consider referral for bariatric surgery in the future; however she would like to start GLP1 agonist. We reviewed indication s for use, possible s/e, appropriat e administra tion, and expected effects. Will f/u in 3 months, sooner PRN. [id number] Erinn Valdivia NP Main Office [address] [place] [address],[address] [place] [address] 09/15/2023 09:59:16 09/15/2023 10:54:12 Adult health examination 649823330 Z00.01 UTD on preventati ve care, immunizati ons. Severe obesity 289739952 1 9104 E66.01 Dietary modificati ons, increased exercise has not produced significan t weight loss.Naltr exone not helpful and also caused nausea.She has had some nausea with Wegovy, worse day after dosing. Will cautiously increase dose to 0.5 mg SC Weekly. Educated on smaller portions, avoiding greasy fatty foods which can worsen symptoms. Discussed importance of regular physical activity and high protein diet.If symptoms persist with dose increase, would try to switch to zepbound as many patients notice fewer side effects. She needs ongoing treatment of morbid obesity. Declines referral to bariatric surgery. Venereal d isease screening 648001231 Z11.3 Agreeable to screen. [id number] Erinn Valdivia NP Main Office [address] [facility],[address] [place] [address] 10/18/2023 12:56:59 10/18/2023 13:16:43 Contraception care management 420970634 Z30.9 [id number] Erinn Valdivia NP Main Office [address] [facility],[address] [place] [address] 11/22/2023 10:39:08 11/22/2023 11:06:55 Ganglion cyst of left wrist 0723312024 18066 M67.432 Likely recurrence of ganglion, refer to hand specialist as below. Severe obesity 611807427 1 9104 E66.01 Dietary modificati ons, increased exercise has not produced significan t weight loss.Naltr exone not helpful and also caused nausea.She has had some nausea with Wegovy, worse day after dosing. Did not improve with zofran so she self dc'd. With BMI 48.1 she is still a good candidate for GLP1 agonists and will try zepbound as anecdotes suggest that this may be better tolerated while still potent in terms of weight loss benefits. F/u 6-8 weeks. She is agreeable but she will let me know if any intolerabl e s/e appear.Rodo ht need referral to bariatric surgery depending on effects of medication . [id number] Erinn Valdivia NP Main Office [address] [facility],[address] [place] [address] 01/31/2024 08:35:58 01/31/2024 09:02:33 Contraception care management 656257026 Z30.9 Will switch to progestero ne only pill as she has new headaches, need to further investigat e. Discussed importance of taking at the same time every day to prevent . New daily persistent headache 4970233197 87203 G44.52 Needs further evaluation , ? migraines vs tension headache, malignancy not likely but need to rule out as these are new and worsening, and she does have first degree family member with brain tumor. Check head CT and plan to f/u with results. Irregular intermenstrual bleeding 83402467 N92.1 Check US/labs as below. May need curing room worker consult. [id number] Erinn Valdivia NP Main Office [address] [facility],[address] [place] [address] 03/14/2024 14:00:23 03/14/2024 14:46:16 Bilateral pendulous breasts 4974778088 9349049 N64.89 Desires reduction, due to upper back pain. PT has not been helpful. Will place referral to plastic surgeon. Has not improved despite attempting well fitting bras which actually have not been readily available. Migraine 04945574 G43.90 9 Exam normal, CT normal.Con biometrics specialist role of migraines although she denies associated factors.Co nsider eye strain, suggest eye exam. Consider tension component which could be affected by her neck issues, related to pendulous breasts.Di scussed importance of adequate hydration, rest, exercise.W ill trial sumatripta n for PRN use. If this is helpful with headaches more likely migraine component and could consider prophylact ic treatment. Offered PT for possible tension/ce rvicogenic component but she declines. F/u 4 months, sooner PRN. Active or passive immunization 846355949 Z23 Agreeable to flu shot. Polycystic ovary syndrome [id number] E28.2 Assessment : Symptoms consistent with PCOS, including irregular periods. Ultrasound findings support diagnosis but not definitive . Discussed treatment theory of treating underlying insulin resistance . Plan: Consider starting Zepbound for weight loss and management of insulin resistance related to PCOS. Follow-up: Monitor symptoms and evaluate response to Zepbound. Could consider curing room worker or endocrinol ogy referral. Severe obesity [id number] 9104 E66.01 Dietary modificati ons, increased exercise has not produced significan t weight loss.Naltr exone not helpful and also caused nausea. Suggest trying zepbound as anecdotes suggest that this may be better tolerated while still potent in terms of weight loss benefits. She would like to start, but wants to wait until after Thanksgivi ng. F/u 4 months, sooner PRN.Might need referral to bariatric surgery depending on effects of medication . Health Concerns Section Related Observation LastModified by Organization Detai ls LastModified Time None Recorded Concern Status LastModified by Organization Details LastModified Time None Recorded Advance Directives Directive N: Payers Encounter Date Sequence Insurance Name Policy Number Policy Kimbrough Covered Member ID Kibmrough Member ID Guarantor Name 09/15/2023 1 [place] [facility] [id number] Luciano R Addie [id number] Marion Addie 09/15/2023 2 [place] Marion E Addie [id number] Marion Addie 10/18/2023 1 [place] [facility] [id number] Luciano R Addie [id number] Marion Addie 10/18/2023 2 [place] Marion E Addie [id number] Marion Addie 11/22/2023 1 [place] [facility] ([facility] [id number] Luciano R Addie [id number] Marion Addie 11/22/2023 2 [place] Marion E Addie [id number] Marion Addie 01/31/2024 1 [place] [facility] [id number] Luciano R Addie [id number] Marion Addie 01/31/2024 2 [place] Marion E Addie [id number] Marion Addie 03/14/2024 1 [place] [facility] [id number] Luciano R Addie [id number] Marion Addie 03/14/2024 2 [place] Marion E Addie [id number] Marion Addie Notes Date Note Type Note Provider Name and Address Organization Details Recorded Time 09/15/2023 text/html Annual WellnessReported bypatient.Diet and Nutrition:healthy diet Fracture Risk:no history of fractures; no recent explained fracture; no sudden unexplained fractures; no previous musculoskeletal injuries Physical Activity:exercises on a regular basis; recent increase in physical activity; good physical condition Additional Lifestyle Factors:no tobacco use; no alcohol intake; stopped drinking alcohol Depression Risk:never feels sad, empty, or tearful; no loss of interest in activities; no significant changes in weight; no sleep disturbances or insomnia; no agitation; no loss of energy; no feelings of worthlessness or guilt; no thoughts of suicide; no history of depression; no history of mood disorders Hearing:no loss of hearing Vision:no vision problems Here for annual exam.Wegovy 0.25 injections once/week, having constipation and nausea. Had really bad heartburn. Tums relieved the heartburn. Taking stool softeners for the constipation. Eating more protein, cut out greasy food.E-cigarette use currently. Uses marijuana nightly.No alcohol.Sexually active, one partner. control is Depo shot. Condom use as well. Feels safe in relationship. Erinn Valdivia NP [address], [address], [employer], [facility] 09/15/2023 12:38:47 10/18/2023 text/html Patient presents to office for routine medication administration for contraceptive care. Patient states she is doing well and has no questions or concerns at this time. Erinn Valdivia NP [address] [address], [place], [address], [employer], [facility] 10/18/2023 13:38:18 11/22/2023 text/html This AV TH visit was arranged by her to discuss left wrist pain.Has history of ganglion cyst s/p excision in 2020.Just recently noticed swelling, then gradually started to have pins/needles sensation in hand. Severe obesity: Wegovy caused nausea that did not improve. She self dc'd about 1 month ago. Last BMI 48.1 Erinn Valdivia NP [address] [address], [place], [address], [employer] [facility] 11/22/2023 12:28:36 01/31/2024 text/html This AV TH visit was arranged to discuss control switch. Chief complaintDesire to switch control method due to side effects History of present illness- Currently on depo provera control, considering switching to the pill or patch- Experiencing new onset headaches, unsure if they are migraines- No visual changes or auras associated with headaches-nausea associated with headaches- Frequent bleeding while on current control Past medical history- No history of blood clots Family historyFamily member with history of blood clotsdad with brain tumor Current medicationsDepot control Erinn Valdivia NP [address] [facility], [facility] [address], [place], [address], [place] [facility] 01/31/2024 09:16:11 03/14/2024 text/html She is here for obesity follow up. Marion Real is a 18-year-old female who presents with complaints of back pain and breast size issues. She reports significant low back pain and believes she may have bulging discs. Additionally, she experiences upper back pain and notices divots in her shoulders. Marion also reports issues with breast size, noting that her breasts spill out of her bra in the front and sides. Unsure of bra size- currently wearing DDD but states she cannot find a comfortable or supportive bra, has been told by retail workers that they do not carry a large enough size.She was having midcycle bleeding when on depo so she stopped. She has not had a period in 6 weeks. She is not sexually active currently so not concerned about . We did labs which showed mild iron deficiency anemia. She did not tolerate oral iron, but on recheck labs show this has resolved. TV Us showed multiple ovarian follicles which we reviewed is not necessarily consistent with PCOS.Still daily persistent headaches. CT of head unremarkable. Start on left side of head, can then affect whole head. Denies associated nausea/photophobia. She has not had eyes examined. Some neck pain/muscular tension as above.Obesity with BMI 48: Did not tolerate wegovy. Has not started zepbound but plans to after thanksgiving. Erinn Valdivia NP [address] [facility], [facility] [address], [place], [address], [place] [facility] 03/14/2024 19:21:40 OBGyn Episode No OBEpisode recorded.
[2024-07-31] MEDS: Ondansetron ODT 8 MG TAB.RAPDIS TRANSLINGU (01:06)
--- NOTE | 2024-07-31 01:07 | PC.NURSE ---
provider into assess pt, medicated for nausea.
[2024-07-31] MEDS: Ketorolac Tromethamine 10 MG TABLET PO (01:28)
[2024-07-31] MEDS: Acetaminophen 325 MG TABLET 975 MG PO (01:28)
--- NOTE | 2024-07-31 01:35 | PC.NURSE ---
provider into assess pt, medicated per mar for headache, test results reviewed by provider, reviewed discharge instructions with pt. pt verbalized understanding, no sign of distress. pt ambulated with a steady gait.
[2024-07-31 01:36] VITALS: BP 112/75; PULSE 76; RESP 20; TEMP 36.9; O2SAT 98
== END 2024-07-31 01:37 | disposition home or self-care (01) ==
PROVIDERS: Physician Assistant; Emergency Provider Emergency Medicine; PCP Nurse Practitioner Family
DX: S19.9XXA Unspecified injury of neck, initial encounter (principal); R51.9 Headache, unspecified; R10.2 Pelvic and perineal pain; M54.2 Cervicalgia; V43.52XA Car driver injured in collision with other type car in traffic accident, initial encounter; Y93.9 Activity, unspecified; Y92.410 Unspecified street and highway as the place of occurrence of the external cause; Y99.8 Other external cause status
CPT/HCPCS: 36415; 70450; 72125; 80053; 83690; 84702; 85025; 99284

== ENCOUNTER → 2024-07-30 20:08 | Outpatient (BNV) | payer BC, MEDICAID, SELFPAY | PROVIDERS: PCP Nurse Practitioner Family; Visit Provider Radiology Diagnostic Radiology | DX: M54.2 Cervicalgia (principal) | CPT/HCPCS: 70450; 72125 ==

== ENCOUNTER 2024-08-01 14:33 | Outpatient (AMB) | payer BC, MEDICAID, SELFPAY ==
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
[2024-08-01 14:42] VITALS: BP 126/78; PULSE 76; BMI 48.8
--- OUTSIDE RECORDS SUMMARY | 2024-08-01 16:48 | XMS_ITS | Data Portability ---
Author Organization PAUL [facility], [employer] Address [address] [place] [id number] Assessment Encounter Date Assessment Date Assessment LastModified [...] Lab CBC w/ auto diff 2023 024 SALOL [facility], [address], [place], [address], 08:08:21 iron + TIBC + ferritin, serum 2023 024 TRISTAN [facility], [address], [place], [address], 08:08:21 CT + NG RNA, PCR, unspecified specimen 2023 024 SALOL [facility], [address], [place], [address], 4 10:05:39 Referral plastic surgeon referral 2023 024 [place] [address] Harjit Matias MD, [address] [place], [address], 4 15:04:03 hand surgeon referral [address] [place] [address] General Surgery Scheduling Dept, [address] [place], [address], 4 13:10:22 Procedures None recorded. Surgeries None recorded. Imaging US, transvagina l 2023 [address] [place] [address] Radiology Central Scheduling, [address] [place], [address], 4 15:28:43 CT, head, w/o contrast 2023 [address] [place] [address] Radiology Central Scheduling, [address], [place], [address], 4 15:28:23 Medication Orders sumatriptan 50 mg tablet 2023 024 [facility]1094, [address] [place], [address], 4 14:36:43 Nathalie 0.35 mg tablet 2023 024 [facility]1094, [address] [place], [address], 4 09:00:06 Zepbound 2.5 mg/0.5 mL subcutaneou s pen injector [address] [facility] #1094, [address] [place], [address], 4 12:27:07 Zepbound 5 mg/0.5 mL subcutaneou s pen injector 2023 024 [facility] #1094, [address] [place], [address], 4 10:58:29 Depo-Television Receiver Analyzer a 150 mg/mL intramuscul ar suspension [address] [facility] #1094, [address] [place] [address], [address], 4 08:50:03 Patient TargetsNo targets recorded. Patient Instructions Encounter Date Encounter Id Patient Instructions Last Modified By Organization Details Last Modified Time 03/14/2024 [id number] migraine headache: care instructions Not available 03/14/2024 [...] Negati ve negati ve Not Available [facility] [address] [place], [address], 09/20/2023 10:05:39 09/15/19 24 09/20/2023 CHLAM YDIA/ GC AMPLI FICAT ION neisseria gonorrhoeae, IRA Negati ve negati ve Not Available [facility] [address] [place], [address], 09/20/2023 10:05:39 09/28/19 24 09/29/2023 COMP. METAB OLIC PANEL (14) glucose 89 mg/dL 70-99 Not Available [facility] [address] [place], [address], 09/29/2023 12:06:14 09/28/19 24 09/29/2023 COMP. METAB OLIC PANEL (14) BUN 6 mg/dL 6-20 Not Available [facility] [address] [place], [address], 09/29/2023 12:06:14 09/28/19 24 09/29/2023 COMP. METAB OLIC PANEL (14) creatinine 0.88 mg/dL 0.57-1 .00 Not Available [facility] [address] [place], [address], 09/29/2023 12:06:14 09/28/19 24 09/29/2023 COMP. METAB OLIC PANEL (14) eGFR 96 mL/mi n/1.7 3 >59 Not Available [facility] [address] [place], [address], 09/29/2023 12:06:14 09/28/19 24 09/29/2023 COMP. METAB OLIC PANEL (14) BUN/creatini ne ratio 7 9-23 below low normal Not Available [facility] [address] [place], [address], 09/29/2023 12:06:14 09/28/19 24 09/29/2023 COMP. METAB OLIC PANEL (14) sodium 141 mmol/ L 134-14 4 Not Available [facility] [address] [place], [address], 09/29/2023 12:06:14 09/28/19 24 09/29/2023 COMP. METAB OLIC PANEL (14) potassium 4.5 mmol/ L 3.5-5. 2 Not Available [facility] [address] [place], [address], 09/29/2023 12:06:14 09/28/19 24 09/29/2023 COMP. METAB OLIC PANEL (14) chloride 108 mmol/ L 96-106 above high normal Not Available [facility] [address] [place], [address], 09/29/2023 12:06:14 09/28/19 24 09/29/2023 COMP. METAB OLIC PANEL (14) carbon dioxide, total 18 mmol/ L 20-29 below low normal Not Available [facility] [address] [place], [address], 09/29/2023 12:06:14 09/28/19 24 09/29/2023 COMP. METAB OLIC PANEL (14) calcium 9.5 mg/dL 8.7-10 .2 Not Available [facility] [address] [facility] [place], [address], 09/29/2023 12:06:14 09/28/19 24 09/29/2023 COMP. METAB OLIC PANEL (14) protein, total 6.8 g/dL 6.0-8. 5 Not Available [facility] [address] [place], [address], 09/29/2023 12:06:14 09/28/19 24 09/29/2023 COMP. METAB OLIC PANEL (14) albumin 4.4 g/dL 4.0-5. 0 Not Available [facility] [address], [place], [address], 09/29/2023 12:06:14 09/28/19 24 09/29/2023 COMP. METAB OLIC PANEL (14) globulin, total 2.4 g/dL 1.5-4. 5 Not Available [facility] [address] [place], [address], 09/29/2023 12:06:14 09/28/19 24 09/29/2023 COMP. METAB OLIC PANEL (14) A/G ratio 1.8 1.2-2. 2 Not Available [facility] [address] [place], [address], 09/29/2023 12:06:14 09/28/19 24 09/29/2023 COMP. METAB OLIC PANEL (14) bilirubin, total 0.5 mg/dL 0.0-1. 2 Not Available [facility] [address] [place], [address], 09/29/2023 12:06:14 09/28/19 24 09/29/2023 COMP. METAB OLIC PANEL (14) alkaline phosphatase 62 IU/L 42-106 Not Available [facility] [address], [place], [address], 09/29/2023 12:06:14 09/28/19 24 09/29/2023 COMP. METAB OLIC PANEL (14) AST (SGOT) 26 IU/L 0-40 Not Available [facility] [address] [facility] [place], [address], 09/29/2023 12:06:14 09/28/19 24 09/29/2023 COMP. METAB OLIC PANEL (14) ALT (SGPT) 31 IU/L 0-32 Not Available [facility] [address] [facility] [place], [address], 09/29/2023 12:06:14 09/28/19 24 09/29/2023 LIPID PANEL cholesterol, total 149 mg/dL 100-19 9 Not Available [facility] [address] [facility] [place], [address], 09/29/2023 12:06:15 09/28/19 24 09/29/2023 LIPID PANEL triglyceride s 118 mg/dL 0-149 Not Available [facility] [address] [facility] [place], [address], 09/29/2023 12:06:15 09/28/19 24 09/29/2023 LIPID PANEL HDL cholesterol 43 mg/dL >39 Not Available [facility] [address] [facility], [place], [address], 09/29/2023 12:06:15 09/28/19 24 09/29/2023 LIPID PANEL VLDL cholesterol gi 21 mg/dL 5-40 Not Available [facility] [address] [facility] [place], [address], 09/29/2023 12:06:15 09/28/19 24 09/29/2023 LIPID PANEL LDL chol calc (nih) 85 mg/dL 0-99 Not Available [facility] [address] [place], [address], 09/29/2023 12:06:15 09/28/19 24 09/29/2023 LIPID PANEL comment: ALMOND PASTE MOLDER Not Available [facility] [address] [place], [address], 09/29/2023 12:06:15 09/28/19 24 09/29/2023 HEMOG LOBIN A1C hemoglobin A1C 5.1 % 4.8-5. 6 Predi abete s: 5.7 - 6.4 Diabe ritu: >6.4 Glyce noah contr ol for adult s with diabe ritu: <7.0 Not Available [facility] [address] [facility], [place], [address], 09/29/2023 12:06:15 02/06/2002/07/2024 FE+TI BC+FE R iron bind.cap.(TI BC) 391 ug/dL 250-45 0 normal Not Available [facility] [address] [place], [address], 02/07/2024 08:08:21 02/06/20 24 02/07/2024 FE+TI BC+FE R UIBC 344 ug/dL 131-42 5 normal Not Available [facility] [address] [place], [address], 02/07/2024 08:08:21 02/06/20 24 02/07/2024 FE+TI BC+FE R iron 47 ug/dL 27-159 normal Not Available [facility] [address] [place], [address], 02/07/2024 08:08:21 02/06/2002/07/2024 FE+TI BC+FE R iron saturation 12 % 15-55 below low normal Not Available [facility] [address] [place], [address], 02/07/2024 08:08:21 02/06/2002/07/2024 FE+TI BC+FE R ferritin 49 NG/mL 15-150 normal Not Available [facility] [address] [facility], [place], [address], 02/07/2024 08:08:21 02/06/2002/07/2024 CBC WITH DIFFE RENTI AL/PL ATELE T WBC 6.2 x10e3 /uL 3.4-10 .8 normal Not Available [facility] [address] [facility], [place], [address], 02/07/2024 08:08:21 02/06/2002/07/2024 CBC WITH DIFFE RENTI AL/PL ATELE T RBC 4.83 x10e6 /uL 3.77-5 .28 normal Not Available [facility] [address] [place], [address], 02/07/2024 08:08:21 02/06/2002/07/2024 CBC WITH DIFFE RENTI AL/PL ATELE T hemoglobin 13.8 g/dL 11.1-1 5.9 normal Not Available [facility] [address] [facility], [place], [address], 02/07/2024 08:08:21 02/06/2002/07/2024 CBC WITH DIFFE RENTI AL/PL ATELE T hematocrit 41.5 % 34.0-4 6.6 normal Not Available [facility] [address] [place], [address], 02/07/2024 08:08:21 02/06/2002/07/2024 CBC WITH DIFFE RENTI AL/PL ATELE T MCV 86 fL 79-97 normal Not Available [facility] [address] [place], [address], 02/07/2024 08:08:21 02/06/2002/07/2024 CBC WITH DIFFE RENTI AL/PL ATELE T MCH 28.6 pg 26.6-3 3.0 normal Not Available [facility] [address] [facility], [place], [address], 02/07/2024 08:08:21 02/06/20 24 02/07/2024 CBC WITH DIFFE RENTI AL/PL ATELE T MCHC 33.3 g/dL 31.5-3 5.7 normal Not Available [facility] [address] [facility], [place], [address], 02/07/2024 08:08:21 02/06/2002/07/2024 CBC WITH DIFFE RENTI AL/PL ATELE T RDW 12.7 % 11.7-1 5.4 Not Available [facility] [address] [place], [address], 02/07/2024 08:08:21 02/06/2002/07/2024 CBC WITH DIFFE RENTI AL/PL ATELE T platelets 238 x10e3 /uL 150-45 0 normal Not Available [facility] [address] [place], [address], 02/07/2024 08:08:21 02/06/2002/07/2024 CBC WITH DIFFE RENTI AL/PL ATELE T neutrophils 60 % not estab. normal Not Available [facility] [address] [place], [address], 02/07/2024 08:08:21 02/06/2002/07/2024 CBC WITH DIFFE RENTI AL/PL ATELE T lymphs 32 % not estab. normal Not Available [facility] [address] [place], [address], 02/07/2024 08:08:21 02/06/20 24 02/07/2024 CBC WITH DIFFE RENTI AL/PL ATELE T monocytes 6 % not estab. normal Not Available [facility] [address] [facility], [place], [address], 02/07/2024 08:08:21 02/06/2002/07/2024 CBC WITH DIFFE RENTI AL/PL ATELE T eos 1 % not estab. normal Not Available [facility] [address] [facility], [place], [address], 02/07/2024 08:08:21 02/06/2002/07/2024 CBC WITH DIFFE RENTI AL/PL ATELE T basos 0 % not estab. normal Not Available [facility] [address] [facility], [place], [address], 02/07/2024 08:08:21 02/06/2002/07/2024 CBC WITH DIFFE RENTI AL/PL ATELE T immature cells ALMOND PASTE MOLDER Not Available [facility] [address] [place], [address], 02/07/2024 08:08:21 02/06/2002/07/2024 CBC WITH DIFFE RENTI AL/PL ATELE T neutrophils (absolute) 3.7 x10e3 /uL 1.4-7. 0 normal Not Available [facility] [address] [place], [address], 02/07/2024 08:08:21 02/06/2002/07/2024 CBC WITH DIFFE RENTI AL/PL ATELE T lymphs (absolute) 2.0 x10e3 /uL 0.7-3. 1 normal Not Available [facility] [address] [place], [address], 02/07/2024 08:08:21 02/06/20 24 02/07/2024 CBC WITH DIFFE RENTI AL/PL ATELE T monocytes(ab solute) 0.4 x10e3 /uL 0.1-0. 9 normal Not Available [facility] [address] [facility], [place], [address], 02/07/2024 08:08:21 02/06/2002/07/2024 CBC WITH DIFFE RENTI AL/PL ATELE T eos (absolute) 0.1 x10e3 /uL 0.0-0. 4 normal Not Available [facility] [address] [facility], [place], [address], 02/07/2024 08:08:21 02/06/2002/07/2024 CBC WITH DIFFE RENTI AL/PL ATELE T baso (absolute) 0.0 x10e3 /uL 0.0-0. 2 normal Not Available [facility] [address] [facility], [place], [address], 02/07/2024 08:08:21 02/06/2002/07/2024 CBC WITH DIFFE RENTI AL/PL ATELE T immature granulocytes 1 % not estab. Not Available [facility] [address] [facility], [place], [address], 02/07/2024 08:08:21 02/06/2002/07/2024 CBC WITH DIFFE RENTI AL/PL ATELE T immature grans (abs) 0.0 x10e3 /uL 0.0-0. 1 Not Available [facility] [address] [facility], [place], [address], 02/07/2024 08:08:21 02/06/2002/07/2024 CBC WITH DIFFE RENTI AL/PL ATELE T NRBC ALMOND PASTE MOLDER Not Available [facility] [address] [facility], [place], [address], 02/07/2024 08:08:21 02/06/2002/07/2024 CBC WITH DIFFE RENTI AL/PL ATELE T hematology comments: ALMOND PASTE MOLDER Not Available [facility] [address] [facility], [place], [address], 02/07/2024 08:08:21 03/13/20 24 03/13/2024 CBC WITH DIFFE RENTI AL/PL ATELE T WBC 5.2 x10e3 /uL 3.4-10 .8 normal Eff ectiv e Decem angela 2023 profi luma 13220 5 WBC will be made* * non-o rdera ble as a stand -francesco e order code. Not Available [facility] [address] [facility], [place], [address], 03/14/2024 08:09:57 03/13/20 24 03/13/2024 CBC WITH DIFFE RENTI AL/PL ATELE T RBC 4.69 x10e6 /uL 3.77-5 .28 normal Not Available [facility] [address] [facility], [place], [address], 03/14/2024 08:09:57 03/13/20 24 03/13/2024 CBC WITH DIFFE RENTI AL/PL ATELE T hemoglobin 13.5 g/dL 11.1-1 5.9 normal Not Available [facility] [address] [place], [address], 03/14/2024 08:09:57 03/13/20 24 03/13/2024 CBC WITH DIFFE RENTI AL/PL ATELE T hematocrit 41.3 % 34.0-4 6.6 normal Not Available [facility] [address] [place], [address], 03/14/2024 08:09:57 03/13/20 24 03/13/2024 CBC WITH DIFFE RENTI AL/PL ATELE T MCV 88 fL 79-97 normal Not Available [facility] [address] [place], [address], 03/14/2024 08:09:57 03/13/20 24 03/13/2024 CBC WITH DIFFE RENTI AL/PL ATELE T MCH 28.8 pg 26.6-3 3.0 normal Not Available [facility] [address] [facility], [place], [address], 03/14/2024 08:09:57 03/13/20 24 03/13/2024 CBC WITH DIFFE RENTI AL/PL ATELE T MCHC 32.7 g/dL 31.5-3 5.7 normal Not Available [facility] [address] [place], [address], 03/14/2024 08:09:57 03/13/20 24 03/13/2024 CBC WITH DIFFE RENTI AL/PL ATELE T RDW 12.6 % 11.7-1 5.4 Not Available [facility] [address] [facility], [place], [address], 03/14/2024 08:09:57 03/13/20 24 03/13/2024 CBC WITH DIFFE RENTI AL/PL ATELE T platelets 216 x10e3 /uL 150-45 0 normal Not Available [facility] [address] [facility], [place], [address], 03/14/2024 08:09:57 03/13/20 24 03/13/2024 CBC WITH DIFFE RENTI AL/PL ATELE T neutrophils 57 % not estab. normal Not Available [facility] [address] [place], [address], 03/14/2024 08:09:57 03/13/20 24 03/13/2024 CBC WITH DIFFE RENTI AL/PL ATELE T lymphs 34 % not estab. normal Not Available [facility] [address] [place], [address], 03/14/2024 08:09:57 03/13/20 24 03/13/2024 CBC WITH DIFFE RENTI AL/PL ATELE T monocytes 7 % not estab. normal Not Available [facility] [address] [place], [address], 03/14/2024 08:09:57 03/13/20 24 03/13/2024 CBC WITH DIFFE RENTI AL/PL ATELE T eos 1 % not estab. normal Not Available [facility] [address] [place], [address], 03/14/2024 08:09:57 03/13/20 24 03/13/2024 CBC WITH DIFFE RENTI AL/PL ATELE T basos 0 % not estab. normal Not Available [facility] [address] [place], [address], 03/14/2024 08:09:57 03/13/20 24 03/13/2024 CBC WITH DIFFE RENTI AL/PL ATELE T immature cells ALMOND PASTE MOLDER Not Available [facility] [address] [place], [address], 03/14/2024 08:09:57 03/13/20 24 03/13/2024 CBC WITH DIFFE RENTI AL/PL ATELE T neutrophils (absolute) 3.0 x10e3 /uL 1.4-7. 0 normal Not Available [facility] [address] [place], [address], 03/14/2024 08:09:57 03/13/20 24 03/13/2024 CBC WITH DIFFE RENTI AL/PL ATELE T lymphs (absolute) 1.8 x10e3 /uL 0.7-3. 1 normal Not Available [facility] [address] [place], [address], 03/14/2024 08:09:57 03/13/20 24 03/13/2024 CBC WITH DIFFE RENTI AL/PL ATELE T monocytes(ab solute) 0.4 x10e3 /uL 0.1-0. 9 normal Not Available [facility] [address] [facility], [place], [address], 03/14/2024 08:09:57 03/13/20 24 03/13/2024 CBC WITH DIFFE RENTI AL/PL ATELE T eos (absolute) 0.1 x10e3 /uL 0.0-0. 4 normal Not Available [facility] [address] [facility], [place], [address], 03/14/2024 08:09:57 03/13/20 24 03/13/2024 CBC WITH DIFFE RENTI AL/PL ATELE T baso (absolute) 0.0 x10e3 /uL 0.0-0. 2 normal Not Available [facility] [address] [facility], [place], [address], 03/14/2024 08:09:57 03/13/20 24 03/13/2024 CBC WITH DIFFE RENTI AL/PL ATELE T immature granulocytes 1 % not estab. Not Available [facility] [address] [facility], [place], [address], 03/14/2024 08:09:57 03/13/20 24 03/13/2024 CBC WITH DIFFE RENTI AL/PL ATELE T immature grans (abs) 0.1 x10e3 /uL 0.0-0. 1 Not Available [facility] [address] [place], [address], 03/14/2024 08:09:57 03/13/20 24 03/13/2024 CBC WITH DIFFE RENTI AL/PL ATELE T NRBC ALMOND PASTE MOLDER Not Available [facility] [address] [place], [address], 03/14/2024 08:09:57 03/13/20 24 03/13/2024 CBC WITH DIFFE RENTI AL/PL ATELE T hematology comments: ALMOND PASTE MOLDER Not Available [facility] [address] [facility], [place], [address], 03/14/2024 08:09:57 03/13/20 24 03/14/2024 RAGHU TIN ferritin 39 NG/mL 15-150 normal Not Available [facility] [address] [facility], [place], [address], 03/14/2024 08:09:57 02/14/20 24 02/13/2024 US, trans [...] at menarc he and sympto ms. WSN: [id number] Orderi ng Physic lakshmi: Erinn Valdivia Dictat ed By: Del Diaz MD Dictat ed Date/T saúl: 10:33 a Review ed By: Del Diaz MD Signed By: Del Diaz MD Signed Date/T saúl: 10:33 am Transc ribed By: ART Transc ribed Date/T saúl: 10:21 am Patien t Class: 5 [facility] ([facility]) [address] , [place], [address], 03/14/2024 19:21:05 02/22/20 24 02/22/2024 CT, head [...] mGy*cm . 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 [...] to accoun t for headac he. WSN: [id number] Orderi ng Physic lakshmi: Erinn Valdivia Dictat ed By: Tone Collins MD Dictat ed Date/T saúl: 4:44 pm Review ed By: Tone Collins MD Signed By: Tone Collins MD Signed Date/T saúl: 4:44 pm Transc ribed By: ART Transc ribed Date/T saúl: 4:42 pm Patien t Class: [address] ([facility] Imaging) [address] [place] [address], [address], 03/14/2024 19:21:04 08/01/19 25 07/30/2024 CT, head, w/o contr ast No observ ation record ed. [address], [address], 07/31/2024 12:57:18 Result Notes None recorded. Problems Name Problem SNOMED Code Status Onset Date Resolution Date Notes Provider Name and Address Organization Details Recorded Time Severe obesity 1845089689024 4 Active 2023 Erinn Valdivia NP [address] [address], [place], [address], [place] [facility] 4 11:15:01 Nausea 972664103 Active 2023 Erinn Valdivia NP [address] [address], [place], [address], [place] [facility] 4 07:48:26 Ganglion cyst of left wrist 3783958920623 00 Active 2023 Erinn Valdivia NP [address] [address], [place], [address], [place] [facility] 4 10:50:05 New daily persistent headache 2631440090979 05 Active 2023 Erinn Valdivia, KRISTIN [address] [facility], [place], [address], [place] [facility] 4 08:48:36 Irregular intermenstr ual bleeding 20453395 Active 2023 Erinn Valdivia, ALMOND PASTE MOLDER [address] [facility], [address], [place], [address], [place] [facility] 4 08:57:05 Iron deficiency without anemia 232042595 Active 2023 Erinn Valdivia, ALMOND PASTE MOLDER [address] [facility], [address], [place], [address], [place] [facility] 4 11:14:24 Bilateral pendulous breasts 7322832895784 9103 Active 2023 Erinn Valdivia, KRISTIN [address] [facility], [address], [place], [address], [place] [facility] 4 14:20:42 Migraine 45377125 Active 2023 Erinn Valdivia NP [address] [facility], [address], [place], [address], [place] [facility] 4 14:34:31 Amenorrhea 04269650 Active 2023 Erinn Valdivia, KRISTIN [address] [facility], [address], [place], [address], [place] [facility] 4 19:18:34 Polycystic ovary syndrome 145143294 Active 2023 Erinn Valdivia, KRISTIN [address] [facility], [address], [place], [address], [place] [facility] 4 19:18:54 Problem Notes None recorded. Procedures Surgical History Date Name Laterality Status Provider Name and Address Organization Details Recorded Time 9 ENT Surgery completed Abby Hopkins [place] [facility] 11/04/2022 09:55:22 Imaging Results Imaging Date Name Status LastModified by Organization Details LastModified Time 02/13/2024 US, transvaginal completed [facility] ([facility]) [address] [place], [address], 03/14/2024 19:21:05 02/22/2024 CT, head + brain, w/o contrast completed [address] (Outpt Imaging) [address] [place], [address], 03/14/2024 19:21:04 07/30/2024 CT, head, w/o contrast completed [address] [place], [address], 07/31/2024 12:57:18 Procedure Notes None recorded. Medical Equipment None [...] rash moderate severe severe Not available 11/04/2022 98684 2 RxNorm Abby Sandeep null, [place] [facility] 3 09:55:02 4056 honey bee venom medicatio n anaphylax is severe Not available 11/04/2022 17287 7 RxNorm Abby Sandeep null, [place] - [...] Not Available Not Available No t Available Depo-Television Receiver Analyzer a 150 mg/mL intramuscul ar suspension Inject 1 mL every 3 months by intramusc ular route as directed. 01/30 completed Not Available Not Available Not Available ferrous sulfate 325 mg (65 mg iron) tablet TAKE 1 TABLET BY MOUTH EVERY OTHER DAY 03/14 completed Not Available Not Available Not Available [...] Not Available Not Available No t Available [address] [facility] spacer INHALE 1 EACH INTO THE LUNGS [...] cm 83 /min 48.1 kg/m2 99 % 657965. 19 g 97 % 97 % 134 mm[Hg] 78 mm[Hg] Isidro Lynn [address] [place] [address], [facility] [place], [address] PAUL [facility] - [facility] 4 10:05:58 Date Recorded Body height Heart rate Body mass index (BMI) Percentile per age and sex Body mass index (BMI) Body weight Oxygen saturation Oxygen saturation in Arterial blood by Pulse oximetry Systolic blood pressure Diastolic blood pressure Provider Name and Address Organization Details Last Updated DateTime 4 165.1 cm 101 /min 99 % 48.3 kg/m2 616872. 79 g 98 % 98 % 122 mm[Hg] 70 mm[Hg] Isidro Lynn [address] [facility], [facility] [address], [place], [id number], [place] [facility] 4 14:06:11 [...] Or Have You Ever Used Smokeless Tobacco? [id number] Information not available 11/04/2022 How Much Tobacco [...] split virus, quadrivalent, PF 1 completed Abby Hopkins null, [place] [facility] 11/04/2022 09:55:29 Influenza, split virus, quadrivalent, PF 0 completed Abby Hopkins null, [place] [facility] 11/04/2022 09:55:29 Influenza, split virus, quadrivalent, PF 2 completed Abby Hopkins null, [place] [facility] 11/04/2022 09:55:29 Influenza, split virus, quadrivalent, PF 3 completed Deborah Villafana null, [place] [facility] 02/18/2023 13:22:13 Tdap 3 completed Erinn Valdivia NP [address] [facility] [place], [facility] [address], [place], [id number], [facility] 11/10/2022 08:48:37 Hep A-Hep B 3 [facility] [place] [facility] 01/30/2024 08:28:59 Influenza, split virus, trivalent, PF 4 completed Erinn Valdivia NP [address] [facility] [address], [place], [address], [facility] 03/14/2024 19:12:46 Past Encounters Encounter ID Performer Location Encounter Start Date Encounter Closed Date Diagnosis/Indication Diagnosis SNOMED-CT Code Diagnosis ICD10 Code Diagnosis Note [id number] Erinn Valdivia NP Main Office [address] [place] [address],[facility] [address] [facility] [place] [address] 11/04/2022 09:51:22 11/04/2022 10:38:05 Contraception education 505739402 Z30.09 Pt educated on the different forms of BC available. Pt says that she has tried the pill and the implant. Pt wishes to try the shot and does not have an interest in the IUD or Nuva Ring. Needs test before nursing administer s. Weight gain 3280322 R63. 5 Check labs for any underlying causes. If absent, consider nutrition referral. Obesity 651191761 E66.9 As above. Check labs. F/u in 2-4 weeks. Screening for cardiovascular system disease 116267768 Z13.6 [id number] Erinn Valdivia NP Main Office [address] [place] [address] [address] [place] [address] 11/09/2022 11:19:48 11/09/2022 12:00:29 Contraception education 514312685 Z30.09 Wound of skin 499478765 T14.8XXA no s s/x of infection, pt is due for updated Td. both Gr-mother and pt not sure when last one given Active or passive immunization 280293083 Z23 [id number] Erinn Valdivia NP Main Office [address] [place] [address] [address] [facility] [place] [address] 11/19/2022 11:21:53 11/19/2022 12:08:42 Obesity 697099500 E66.9 reviewed heart healthy diet, suggest incorporat ing healthy high fiber and high protein foods. She is agreeable to nutritioni st referral. Could consider GLP 1 agonist in the future, f/u 3 months after she has seen nutritioni st and also PT. Bilateral pendulous breasts 2987585206 3079896 N64.89 Desires reduction, due to upper back pain. Pt has upcoming appt with PT to address upper back pain, f/u after this. [id number] Derrek Lucia Mock DO Main Office [address] [place] [address] [address] [place] [address] 01/25/2023 15:21:33 01/25/2023 15:34:30 Contraception education 184064728 Z30.09 [id number] Erinn Valdivia NP Main Office [address] [place] [address] [address] [facility] [place] [place] [address] 02/18/2023 13:19:44 02/18/2023 13:51:00 Bilateral pendulous breasts [id number] 7413533 N64.89 Desires reduction, due to upper back pain. PT has not been helpful. Will place referral to plastic surgeon. Obesity 896773760 E66.9 reviewed heart healthy diet, suggest incorporat [...] f/u 3 months. Advised on possible s/e. [id number] Erinn Valdivia NP Main Office [address] [place] [address] [address] [place] [address] 04/15/2023 13:27:21 04/15/2023 13:44:01 Contraception care management 900066339 Z30.9 [id number] Erinn Valdivia NP Main Office [address] [place] [address] [address] [place] [address] 05/19/2023 15:34:24 05/19/2023 16:10:56 Morbid obesity 279850545 E66.01 reviewed heart healthy diet, suggest incorporat ing healthy high fiber and high protein foods. I advised her to check with [employer] to find a nutritioni st who she [...] does not want to start for now. [id number] Erinn Valdivia NP Main Office [address] [place] [address] [address] [place] [address] 06/28/2023 08:17:19 06/28/2023 08:56:22 Upper respiratory infection 88731538 J06.9 [id number] Erinn Valdivia NP Main Office [address] [place] [address] [address] [place] [address] 07/18/2023 13:43:34 07/18/2023 14:01:36 Contraception care management 977155858 Z30.9 [id number] Erinn Valdivia NP Main Office [address] [place] [address] [address] [place] [address] 08/09/2023 11:02:22 08/09/2023 11:36:03 Severe obesity 2737275078 9104 E66.01 Dietary modificati ons, increased exercise has not produced significan t weight loss.Naltr exone not helpful and also caused nausea.Cou ld consider referral for bariatric surgery in the future; however she would like to start GLP1 agonist. We reviewed indication s for use, possible s/e, appropriat e administra tion, and expected effects. Will f/u in 3 months, sooner PRN. [id number] Erinn Valdivia NP Main Office [address] [place] [address],[address] [place] [address] 09/15/2023 09:59:16 09/15/2023 10:54:12 Adult health examination 047464742 Z00.01 UTD on preventati ve care, immunizati ons. Severe obesity 588001167 1 9104 E66.01 Dietary modificati ons, increased [...] to bariatric surgery. Venereal d isease screening 293478246 Z11.3 Agreeable to screen. [id number] Erinn Valdivia NP Main Office [address] [place] [address],[address] [place] [address] 10/18/2023 12:56:59 10/18/2023 13:16:43 Contraception care management 401493430 Z30.9 [id number] Erinn Valdivia NP Main Office [address] [place] [address],[address] [place] [address] 11/22/2023 10:39:08 11/22/2023 11:06:55 Ganglion cyst of left wrist 2594470045 08205 M67.432 Likely recurrence of ganglion, refer to hand specialist as below. Severe obesity 696491378 1 9104 E66.01 Dietary modificati ons, increased [...] surgery depending on effects of medication . [id number] Erinn Valdivia NP Main Office [address] [facility],[address] [place] [address] 01/31/2024 08:35:58 01/31/2024 09:02:33 Contraception care management 253416687 Z30.9 Will switch to progestero ne only pill as she has new headaches, need to further investigat e. Discussed importance of taking at the same time every day to prevent . New daily persistent headache 8777503501 89233 G44.52 Needs further evaluation , ? migraines vs tension headache, malignancy not likely but need to rule out as these are new and worsening, and she does have first degree family member with brain tumor. Check head CT and plan to f/u with results. Irregular intermenstrual bleeding 00594786 N92.1 Check US/labs as below. May need outer diameter technician consult. [id number] Erinn Valdivia NP Main Office [address] [facility],[address] [place] [address] 03/14/2024 14:00:23 03/14/2024 14:46:16 Bilateral pendulous breasts 6604082927 1145189 N64.89 Desires reduction, due to upper back pain. PT has not been helpful. Will place referral to plastic surgeon. Has not improved despite attempting well fitting bras which actually have not been readily available. Migraine 89121904 G43.90 9 Exam normal, CT normal.Con supervisor metalizing role of migraines although she denies associated [...] months, sooner PRN. Active or passive immunization 499307803 Z23 Agreeable to flu shot. Polycystic ovary syndrome 180431574 E28.2 Assessment : Symptoms consistent with PCOS, including irregular periods. Ultrasound findings support diagnosis but not definitive . Discussed treatment theory of treating underlying insulin resistance . Plan: Consider starting Zepbound for weight loss and management of insulin resistance related to PCOS. Follow-up: Monitor symptoms and evaluate response to Zepbound. Could consider outer diameter technician or endocrinol ogy referral. Severe obesity 604520892 1 9104 E66.01 Dietary modificati ons, increased [...] Member ID Kimbrough Member ID Guarantor Name 09/15/2023 1 [facility] [id number] Luciano Bahena Addie [id number] Marion Addie 09/15/2023 2 [place] Marion E Addie [id number] Marion Addie 10/18/2023 1 [facility] [facility] [id number] Luciano R Addie [id number] Marion Addie 10/18/2023 2 [place] Marion E Addie [id number] Marion Addie 11/22/2023 1 [facility] [id number] Luciano R Addie [id number] Marion Addie 11/22/2023 2 [place] Marion E Addie [id number] Marion Addie 01/31/2024 1 [place] [facility] [id number] Luciano Bahena Addie [id number] Marion Addie 01/31/2024 2 [place] [facility] Marion Aaron Addie [id number] Marion Addie 03/14/2024 1 [place] [facility] [id number] Luciano Bahena Addie [id number] Marion Addie 03/14/2024 2 [place] [facility] Marion Aaron Addie [id number] Marion Addie Notes Date Note Type Note [...] safe in relationship. Erinn Valdivia NP [address], [address], [facility] 09/15/2023 12:38:47 10/18/2023 text/html Patient presents to office for routine medication administration for contraceptive care. Patient states she is doing well and has no questions or concerns at this time. Erinn Valdivia NP [address] [facility] [address], [place], [address], [place] [facility] 10/18/2023 13:38:18 11/22/2023 text/html This AV TH visit was arranged by her to discuss left wrist pain.Has history of ganglion cyst s/p excision in 2020.Just recently noticed swelling, then gradually started to have pins/needles sensation in hand. Severe obesity: Wegovy caused nausea that did not improve. She self dc'd about 1 month ago. Last BMI 48.1 Erinn Valdivia NP 55 [facility], [facility] [address], [place], [address], [place] [facility] 11/22/2023 12:28:36 01/31/2024 text/html [...] medicationsDepot control Erinn Valdivia NP 55 [facility], [facility] [address], [place], [address], [place] [facility] 01/31/2024 09:16:11 03/14/2024 [...] zepbound but plans to after thanksgiving. Erinn Valdivia, [employer]D PA[employer] MOLDER 55 [facility], [facility] [address], [place], [address], [facility] 03/14/2024 19:21:40 OBGyn Episode No OBEpisode recorded.
== END 2024-08-01 14:55 | disposition home or self-care (01) ==
LOC: HO.HGS 14:33
PROVIDERS: PCP Nurse Practitioner Family; Visit Provider Surgery
DX: K35.80 Unspecified acute appendicitis (principal)
CPT/HCPCS: 99213

== ENCOUNTER 2024-10-23 08:55 | Day surgery (SDC) | payer BC, MEDICAID, SELFPAY ==
--- OUTSIDE RECORDS SUMMARY | 2024-08-07 07:46 | XMS_ITS | Data Portability ---
Author Organization [place] - [facility], Allergy Address [address] [address] Care Team Providers Care Senior Lead Project Manager Name Role Phone NATALIYA GRANADO Primary Care Provider NATALIYA GRANADO Referring Provider Assessment Encounter Date [...] Address Organization Details Recorded Time Severe obesity [id number] 104 Active 2022 Morbid (severe) obesity due to excess calories; Note: Date Diagnosed : 01/17/2023 11:10 AM (E66.01) Not Available [facility] 4 02:52:29 Nasal congestio n 70587066 Active 2016 Nasal congestio n; Note: Date Diagnosed : 7 9:54 AM (R09.81) Not Available [facility] 4 02:52:32 Bilateral temporoma ndibular joint pain [id number] 738511 Active 2020 Arthralgi a of bilateral temporoma ndibular joint; Note: Date Diagnosed : 1 2:10 PM (M26.623) Not Available [facility] 4 02:52:29 Mixed conductiv e and sensorine ural hearing loss of right ear 57636320972 105 Active 2018 Mixed conductiv e and sensorine ural hearing loss, unilatera l, right ear, with unrestric haile hearing on the contralat eral side; Note: Date Diagnosed : 11/20/2018 2:25 PM (H90.71) Not Available [facility] 4 02:52:33 Mixed conductiv e and sensorine ural hearing loss, bilateral 061667377 Active 2022 Mixed conductiv e and sensorine ural hearing loss, bilateral ; Note: Date Diagnosed : 01/13/2023 10:57 AM (H90.6) Not Available [facility] 4 02:52:33 Chronic mucoid otitis media of right middle ear 23015358818 70288 Active 2022 Chronic mucoid otitis media, right ear; Note: Date Diagnosed : 01/24/2023 8:55 AM (H65.31) Not Available [facility] 4 02:52:30 Conductiv e hearing loss, bilateral 601268159 Active 2014 Conductiv e HL, bilateral ; Note: Date Diagnosed : 08/12/2014 11:50 AM (389.06) ; Start Date : 5 Conduct mattie hearing loss, bilateral ; Note: Date Diagnosed : 01/22/2015 2:56 PM (H90.0) Not Available [facility] 4 02:52:30 Bilateral disorder of Eustachia n tubes 57577854136 38028 Active 2015 Other specified disorders of Eustachia n tube, bilateral ; Location: bilateral Note: Date Diagnosed : 12/18/2015 2:55 PM (H69.83) Not Available [facility] 4 02:52:33 Conductiv e hearing loss 90200641 Active 2023 ZENOBIA DIOP 100 [facility],[place] [address], [place], [address] , [facility] 4 10:03:04 Conductiv e hearing loss 30798046 Active 2023 SHANNEN GRAVES MD 100 [facility],[place] [address], [place], [address] , [facility] 4 10:10:27 Bilateral diffuse otitis externa 63578595180 91771 Active 2019 Diffuse otitis externa, bilateral ; Note: Date Diagnosed : 02/25/2020 10:48 AM (H60.313) Not Available [facility] 4 02:52:29 Otorrhea of left ear 25841068439 35808 Active 2015 Otorrhea, left ear; Note: Date Diagnosed : 12/18/2015 3:16 PM (H92.12) Not Available [facility] 4 02:52:30 Otorrhea of right ear 89824079729 86131 Active 2015 Otorrhea, right ear; Note: Date Diagnosed : 01/02/2016 4:23 PM (H92.11) Not Available [facility] 4 02:52:30 Polyp of right middle ear 17534582501 66210 Active 2022 Polyp of right middle ear; Note: Date Diagnosed : 05/06/2022 2:22 PM (H74.41) Not Available [facility] 4 02:52:32 Disorder of right Eustachia n tube 64458335115 15966 Active 2019 Other specified disorders of Eustachia n tube, right ear; Note: Date Diagnosed : 11/08/2019 3:16 PM (H69.81) Not Available [facility] 4 02:52:32 Granuloma tous disorder of the skin and subcutane ous tissue 305866529 Active 2016 Granuloma tous disorder of the skin and subcutane ous tissue, unspecifi ed; Note: Date Diagnosed : 01/24/2017 4:09 PM (L92.9) Not Available [facility] 4 02:52:33 Follow-up visit Active 2017 Medical surveilla nce following completed treatment ; Note: Date Diagnosed : 05/18/2017 11:21 AM (Z09) Not Available [facility] 4 02:52:34 Dysfuncti on of eustachia n tube 44600058 Active 2015 Eustachia n tube dysfuncti on; [...] 12:47 PM (381.81) Not Available [facility] 4 02:52:34 Problem Notes None recorded. Procedures Surgical History Date Name Laterality Status Provider Name and Address Organization Details Recorded Time 05/07/19 25 Tympanometry (47987) completed KAREN PHILIP, AUD 100 [facility],[address], [address], [place] - [facility] 05/07/2024 10:17:50 11/14/19 24 Comp Audio with Tymps (67023 & 01364) completed KAREN PHILIP, AUD 100 [facility],[address], [address], [place] - [facility] 11/14/2023 10:02:12 Myringotomy Tube Placement completed Paloma Augustin [place] - [facility] [place] 11/14/2023 09:04:58 procedure on wrist completed Paloma Augustin [place] - [facility] 11/14/2023 09:05:04 tonsillectomy and adenoidectomy completed Paloma Augustin [place] [facility] 11/14/2023 09:05:18 Imaging Results Imaging Date Name Status LastModified by [facility] Details LastModified Time 11/14/2023 audiogram completed BARCODE [...] Name and Address Organization Details Recorded Time 980243 amoxicill in / clavulana te medicatio n other Not available Not available 09/06/2023 RxNorm React ion: unkno wn, unspe cifie d;; Not Available [facility] 4 01:26:05 Medications Name Sig Start Date Stop Date Status Note LastModified by Organization Details LastModified Time venlafaxi ne ER 37.5 mg capsule,e xtended release 24 hr 2020 active Medicati on ID: [id number] B rand Name: venlafax ine Send Method: E-Prescr ibed Sub s Allowed: subs OK Medic ationGen ericName : venlafax ine Not Available Not Available Not Available acetamino phen 325 mg tablet 11/13 completed Medicati on ID: [id number] D uration Value: 5 Brand Name: acetamin ophen Se nd Method: E-Prescr ibed Sub s Allowed: subs OK Speci al Instruct ion: 3 TABLET BY MOUTH 4 TIMES A DAY,X5 DAYS NEEDED FOR PAIN Med icationG enericNa me: acetamin ophen Me dication ID: [id number] D uration Value: 5 Brand Name: acetamin ophen Se nd Method: E-Prescr ibed Sub s Allowed: subs OK Speci al Instruct ion: 3 TABLET BY MOUTH 4 TIMES A DAY,X5 DAYS NEEDED FOR PAIN Med icationG enericNa me: acetamin ophen Not Available Not Available Not Available venlafaxi ne ER 75 mg capsule,e xtended release 24 hr 11/07 completed Medicati on ID: [id number] D uration Value: 30 Reason: () Brand [...] 24 hr 2020 active Medicati on ID: [id number] B rand Name: venlafax ine Send Method: E-Prescr ibed Sub s Allowed: subs OK Medic ationGen ericName : venlafax ine Not Available Not Available Not Available sumatript an 50 mg tablet TAKE 1 TABLET BY MOUTH EVERY DAY active Not Available Not Available No t Available Ciloxan 0.3 % eye drops 11/13 completed Medicati on ID: [id number] D uration Value: 14 Prescri bed By Name: LOUIS Lau nd Name: Ciloxan Send Method: E-Prescr ibed Sub s Allowed: subs OK Speci al Instruct ion: Instill 4 drops twice a day into the affected ear. Med icationG enericNa me: Ciloxan Medicati on ID: [id number] D uration Value: 14 Prescri bed By Name: LOUIS Lau nd Name: Ciloxan Send Method: E-Prescr ibed Sub s Allowed: subs OK Speci al Instruct ion: Instill 4 drops twice a day into the affected ear. [facility] Cilox[facility] Not Available Not Available Not Available amoxicill in 250 mg chewable tablet 01/24 completed Medicati on ID: [id number] Du ration Value: 7 Reason: () Brand Name: amoxicil loki Send Method: E-Prescr ibed Sub s Allowed: subs OK Speci al Instruct ion: CHEW ONE TABLET EVERY 6 HOURS. FOLLOW WITH WATER. Kraig Matthews Name: amoxicil loki Not Available Not Available Not Available prazosin 5 mg capsule 2020 active Medicati on ID: [id number] B rand Name: prazosin Send Method: E-Prescr ibed Sub s Allowed: subs OK Medic ationGen ericName : prazosin Not Available Not Available Not Available ofloxacin 0.3 % ear drops Instill 3 drop into both ears twice a day 11/13 completed Medicati on ID: [id number] D uration Value: 3 Prescri bed By Name: Keegan Sandoval nd Name: ofloxaci n Send Method: E-Prescr ibed Sub s Allowed: subs OK Speci al Instruct ion: x 5 days Med icationG enericNa me: ofloxaci n Medica tion ID: [id number] D uration Value: 3 Prescri bed By [...] mg tablet 04/11 completed Medicati on ID: [id number] Re ason: () Brand Name: ibuprofe n Send Method: E-Prescr ibed Sub s Allowed: subs OK Medic ationGen ericName : ibuprofe n Not Available Not Available Not Available mupirocin 2 % topical ointment 11/13 completed Medicati on ID: [id number] D uration Value: 14 Brand Name: mupiroci n Send Method: E-Prescr ibed Sub s Allowed: subs OK Medic ationGen ericName : mupiroci n Medica tion ID: [id number] D uration Value: 14 Brand Name: mupiroci [...] oral powder 2019 active Medicati on ID: [id number] D uration Value: 7 Brand Name: polyethy [...] mg capsule 2019 active Medicati on ID: [id number] D uration Value: 28 Brand Name: prazosin Send Method: E-Prescr ibed Sub s Allowed: subs OK Medic ationGen ericName : prazosin Not Available Not Available Not Available oxycodone 5 mg tablet Take 1 tablet by mouth every four hours as needed for pain 11/13 completed Medicati on ID: [id number] D uration Value: 3 Prescri bed By Name: Keegan Sandoval nd Name: oxycodon e Send Method: E-Prescr ibed Sub s Allowed: subs OK Medic ationGen ericName : oxycodon e Medica tion ID: [id number] D uration Value: 3 Prescri bed By Name: Keegan Sandoval nd Name: oxycodon e Send Method: E-Prescr ibed Sub s Allowed: subs OK Medic ationGen ericName : oxycodon e Not Available Not Available Not Available TobraDex 0.3 %-0.1 % eye drops,manolo pension 11/13 completed Medicati on ID: [id number] D uration Value: 14 Brand Name: TobraDex Send Method: E-Prescr ibed Sub s Allowed: subs OK Speci al Instruct ion: Instill 4 drops in the right ear BID for 14 days Med icationG enericNa me: TobraDex Medicat ion ID: [id number] D uration Value: 14 Brand Name: TobraDex Send Method: E-Prescr ibed Sub s Allowed: subs OK Speci al Instruct ion: Instill 4 drops in the right ear BID for 14 days Med icationG enericNa me: TobraDex Not Available Not Available Not Available escitalop martina 10 mg tablet 11/07 completed Medicati on ID: [id number] D uration Value: 30 Reason: () Brand Name: escitalo pram oxalate Send Method: E-Prescr ibed Sub s Allowed: subs OK Medic ationGen ericName : escitalo pram oxalate Not Available Not Available Not Available escitalop martina 20 mg tablet 07/11 completed Medicati on ID: [id number] D uration Value: 30 Brand Name: escitalo pram oxalate Send Method: E-Prescr ibed Sub s Allowed: subs OK Medic ationGen ericName : escitalo pram oxalate Not Available Not Available Not Available ciproflox acin 0.3 %-dexamet hasone 0.1 % ear drops,manolo pension Instill 4 drop into right ear twice a day as directed 11/13 completed Medicati on ID: [id number] D uration Value: 14 Brand Name: ciproflo xacin-de xamethas one Send Method: E-Prescr ibed Sub s Allowed: subs OK Speci al Instruct ion: x 14 days Med icationG enericNa me: ciproflo xacin-de xamethas one Medi cation ID: [id number] D uration Value: 14 Brand Name: ciproflo [...] aerosol inhaler 04/11 completed Medicati on ID: [id number] Du ration Value: 20 Reason: () Brand Name: ProAir HFA Send Method: E-Prescr ibed Sub s Allowed: subs OK Speci al Instruct ion: 2 PUFFS INHALATI ON 4 TIMES A DAY Medi cationGe nericNam e: ProAir HFA Not Available Not Available Not Available melatonin 5 mg tablet 2020 active Medicati on ID: [id number] B rand Name: melatoni n Send Method: E-Prescr ibed Sub s Allowed: subs OK Medic ationGen ericName : melatoni n Not Available Not Available Not Available guanfacin e ER 2 mg tablet,ex tended release 24 hr 2020 active Medicati on ID: [id number] B rand Name: nellifaci ne Send Method: E-Prescr ibed Sub s Allowed: subs OK Medic ationGen ericName : guanfaci ne Not Available Not Available Not Available Aerochamb er Plus Flow-Vu 04/11 completed Medicati on ID: [id number] Du ration Value: 30 Reason: () Brand [...] both nostrils 2019 active Medicati on ID: [id number] D uration Value: 30 Brand Name: Flonase Allergy Relief S end Method: E-Prescr ibed Sub s Allowed: subs OK Medic ationGen ericName : Flonase Allergy Relief Not Available Not Available Not Available melatonin 10 mg sublingua l tablet 07/11 completed Medicati on ID: [id number] D uration Value: 30 Brand Name: melatoni [...] Note [id number] SHANNEN GRAVES MD [facility] on [address] [place] [address] 11/14/2023 08:56:23 11/14/2023 10:10:17 Bilateral disorder of Eustachian tubes [id number] 029091 H69.83 Both tympanosto my tubes have extruded [...] reassess eustachian tube function. Conductive hearing loss 38679805 H90.11 Audiologic al evaluation results:Ri ght ear:{{Norm [...] Cou ld not maintain a hermetic seal}} [id number] ELADIA RIVAS MD [facility] on [address] [place] [address] 05/07/2024 09:49:50 05/07/2024 10:38:45 Dysfunction of eustachian tube 68124830 H69.93 Audiologic al evaluation results: 05/07/2024 Tympanomet [...] hermetic seal}} Bilateral disorder of Eustachian tubes [id number] 409740 H69.83 Chronic mu coid otitis media of right middle ear 9763196694 631687 H65.31 Health Concerns Section Related Observation LastModified by Organization Detai ls LastModified Time None Recorded Concern Status LastModified by Organization Details LastModified Time None Recorded Advance Directives Directive None Recorded Payers Encounter Date Sequence Insurance Name Policy Number Policy Kimbrough Covered Member ID Kimbrough Member ID Guarantor Name 11/14/2023 1 [place] [facility] (O) [id number] Luciano Bahena Addie [id number] Marion Addie 11/14/2023 2 [place] E Addie [id number] Marion Addie 05/07/2024 1 [place] [facility] (HMO) [id number] Luciano Bahena Addie [id number] Marion Addie 05/07/2024 2 [place] Marion E Addie [id number] Marion Addie Notes Date Note Type Note [...] no pain or discharge. SHANNEN GRAVES MD [address] [place] [address], [address], [facility] 11/14/2023 10:11:42 05/07/2024 text/html 18 year [...] to a recent cold. ELADIA RIVAS MD [address] [place] [address],[address], [address], [facility] 05/07/2024 12:55:44 OBGyn Episode No OBEpisode recorded.
--- OUTSIDE RECORDS SUMMARY | 2024-08-07 07:47 | XMS_ITS | Data Portability ---
Author Organization PAUL [facility], [employer] Address [address] [place] [id number] Assessment Encounter Date Assessment Date Assessment LastModified [...] Lab CBC w/ auto diff 2023 024 [place] [facility], [address], [place], [address], 08:08:21 iron + TIBC + ferritin, serum 2023 024 TRISTAN [facility], [address], [place], [address], 08:08:21 CT + NG RNA, PCR, unspecified specimen 2023 024 [place] [facility], [address], [place], [address], 4 10:05:39 Referral plastic surgeon referral 2023 024 [place] [address] Harjit Matias MD, [address] [place], [address], 4 15:04:03 hand surgeon referral [address] [place] [address] General Surgery Scheduling Dept, [address] [place], [address], 4 13:10:22 Procedures None recorded. Surgeries None recorded. Imaging US, transvagina l 2023 [address] [place] [address] Radiology Central Scheduling, [address] [place], [address], 4 15:28:43 CT, head, w/o contrast 2023 [address] [place] [address] Radiology Central Scheduling, [address], [place], [address], 4 15:28:23 Medication Orders sumatriptan 50 mg tablet 2023 024 [facility]armacy #1094, [address] [place], [address], 4 14:36:43 Nathalie 0.35 mg tablet 2023 024 [facility] #1094, [address] [place], [address], 4 09:00:06 Zepbound 2.5 mg/0.5 mL subcutaneou s pen injector 2023 024 [facility]/Pharmacy #1094, [address] [place], [address], 4 12:27:07 Zepbound 5 mg/0.5 mL subcutaneou s pen injector 2023 024 [facility]/Pharmacy #1094, [address] [place], [address], 4 10:58:29 Depo-Electric Golf Cart Repairer a 150 mg/mL intramuscul ar suspension 2023 024 [facility]/Pharmacy #1094, [address] [place] [address], [address], 4 08:50:03 Patient TargetsNo targets recorded. Patient Instructions Encounter Date Encounter Id Patient Instructions Last Modified By Organization Details Last Modified Time 03/14/2024 [id number] migraine headache: care instructions Not available 03/14/2024 [...] Negati ve negati ve Not Available [facility] ([facility]) [address] [place], [address], 09/20/2023 10:05:39 09/15/19 24 09/20/2023 CHLAM YDIA/ GC AMPLI FICAT ION neisseria gonorrhoeae, IRA Negati ve negati ve Not Available [facility] ([facility]) [address] [place], [address], 09/20/2023 10:05:39 09/28/19 24 09/29/2023 COMP. METAB OLIC PANEL (14) glucose 89 mg/dL 70-99 Not Available [facility] ([facility]) [address] [place], [address], 09/29/2023 12:06:14 09/28/19 24 09/29/2023 COMP. METAB OLIC PANEL (14) BUN 6 mg/dL 6-20 Not Available [facility] ([facility]) [address] [place], [address], 09/29/2023 12:06:14 09/28/19 24 09/29/2023 COMP. METAB OLIC PANEL (14) creatinine 0.88 mg/dL 0.57-1 .00 Not Available [facility] ([facility]) [address] [place], [address], 09/29/2023 12:06:14 09/28/19 24 09/29/2023 COMP. METAB OLIC PANEL (14) eGFR 96 mL/mi n/1.7 3 >59 Not Available [facility] ([facility]) [address] [place], [address], 09/29/2023 12:06:14 09/28/19 24 09/29/2023 COMP. METAB OLIC PANEL (14) BUN/creatini ne ratio 7 9-23 below low normal Not Available [facility] ([facility]) [address] [place], [address], 09/29/2023 12:06:14 09/28/19 24 09/29/2023 COMP. METAB OLIC PANEL (14) sodium 141 mmol/ L 134-14 4 Not Available [facility] ([facility]) [address] [place], [address], 09/29/2023 12:06:14 09/28/19 24 09/29/2023 COMP. METAB OLIC PANEL (14) potassium 4.5 mmol/ L 3.5-5. 2 Not Available [facility] ([facility]) [address] [place], [address], 09/29/2023 12:06:14 09/28/19 24 09/29/2023 COMP. METAB OLIC PANEL (14) chloride 108 mmol/ L 96-106 above high normal Not Available [facility] ([facility]) [address] [place], [address], 09/29/2023 12:06:14 09/28/19 24 09/29/2023 COMP. METAB OLIC PANEL (14) carbon dioxide, total 18 mmol/ L 20-29 below low normal Not Available [facility] ([facility]) [address] [place], [address], 09/29/2023 12:06:14 09/28/19 24 09/29/2023 COMP. METAB OLIC PANEL (14) calcium 9.5 mg/dL 8.7-10 .2 Not Available [facility] ([facility] [address] [facility] [place] [address], 09/29/2023 12:06:14 09/28/19 24 09/29/2023 COMP. METAB OLIC PANEL (14) protein, total 6.8 g/dL 6.0-8. 5 Not Available [facility] ([facility]) [address] [place], [address], 09/29/2023 12:06:14 09/28/19 24 09/29/2023 COMP. METAB OLIC PANEL (14) albumin 4.4 g/dL 4.0-5. 0 Not Available [facility] ([facility]) [address], [place], [address], 09/29/2023 12:06:14 09/28/19 24 09/29/2023 COMP. METAB OLIC PANEL (14) globulin, total 2.4 g/dL 1.5-4. 5 Not Available [facility] ([facility]) [address] [place], [address], 09/29/2023 12:06:14 09/28/19 24 09/29/2023 COMP. METAB OLIC PANEL (14) A/G ratio 1.8 1.2-2. 2 Not Available [facility] ([facility]) [address] [place], [address], 09/29/2023 12:06:14 09/28/19 24 09/29/2023 COMP. METAB OLIC PANEL (14) bilirubin, total 0.5 mg/dL 0.0-1. 2 Not Available [facility] ([facility]) [address] [place], [address], 09/29/2023 12:06:14 09/28/19 24 09/29/2023 COMP. METAB OLIC PANEL (14) alkaline phosphatase 62 IU/L 42-106 Not Available [facility]) [address], [place] [place], [address], 09/29/2023 12:06:14 09/28/19 24 09/29/2023 COMP. METAB OLIC PANEL (14) AST (SGOT) 26 IU/L 0-40 Not Available [facility] ([facility]) [address] [facility] [place], [address], 09/29/2023 12:06:14 09/28/19 24 09/29/2023 COMP. METAB OLIC PANEL (14) ALT (SGPT) 31 IU/L 0-32 Not Available [facility] ([facility]) [address] [facility] [place], [address], 09/29/2023 12:06:14 09/28/19 24 09/29/2023 LIPID PANEL cholesterol, total 149 mg/dL 100-19 9 Not Available [facility] ([facility]) [address] [facility] [place], [address], 09/29/2023 12:06:15 09/28/19 24 09/29/2023 LIPID PANEL triglyceride s 118 mg/dL 0-149 Not Available [facility] ([facility]) [address] [facility] [place], [address], 09/29/2023 12:06:15 09/28/19 24 09/29/2023 LIPID PANEL HDL cholesterol 43 mg/dL >39 Not Available [facility]) [address] [facility], [place], [address], 09/29/2023 12:06:15 09/28/19 24 09/29/2023 LIPID PANEL VLDL cholesterol gi 21 mg/dL 5-40 Not Available [facility]) [address] [facility] [place], [address], 09/29/2023 12:06:15 09/28/19 24 09/29/2023 LIPID PANEL LDL chol calc (nih) 85 mg/dL 0-99 Not Available [facility]) [address] [place], [address], 09/29/2023 12:06:15 09/28/19 24 09/29/2023 LIPID PANEL comment: BENCH HAND Not Available [facility] ([facility]) [address] [place], [address], 09/29/2023 12:06:15 09/28/19 24 09/29/2023 HEMOG LOBIN A1C hemoglobin A1C 5.1 % 4.8-5. 6 Predi abete s: 5.7 - 6.4 Diabe ritu: >6.4 Glyce noah contr ol for adult s with diabe ritu: <7.0 Not Available [facility] ([facility]) [address] [facility], [place], [address], 09/29/2023 12:06:15 02/06/2002/07/2024 FE+TI BC+FE R iron bind.cap.(TI BC) 391 ug/dL 250-45 0 normal Not Available [facility] ([facility]) [address] [place], [address], 02/07/2024 08:08:21 02/06/20 24 02/07/2024 FE+TI BC+FE R UIBC 344 ug/dL 131-42 5 normal Not Available [facility] ([facility]) [address] [place], [address], 02/07/2024 08:08:21 02/06/20 24 02/07/2024 FE+TI BC+FE R iron 47 ug/dL 27-159 normal Not Available [facility] ([facility]) [address] [place], [address], 02/07/2024 08:08:21 02/06/2002/07/2024 FE+TI BC+FE R iron saturation 12 % 15-55 below low normal Not Available [facility] ([facility]) [address] [place], [address], 02/07/2024 08:08:21 02/06/2002/07/2024 FE+TI BC+FE R ferritin 49 NG/mL 15-150 normal Not Available [facility] ([facility]) [address] [facility], [place], [address], 02/07/2024 08:08:21 02/06/2002/07/2024 CBC WITH DIFFE RENTI AL/PL ATELE T WBC 6.2 x10e3 /uL 3.4-10 .8 normal Not Available [facility] ([facility]) [address] [facility], [place], [address], 02/07/2024 08:08:21 02/06/2002/07/2024 CBC WITH DIFFE RENTI AL/PL ATELE T RBC 4.83 x10e6 /uL 3.77-5 .28 normal Not Available [facility] ([facility]) [address] [place], [address], 02/07/2024 08:08:21 02/06/2002/07/2024 CBC WITH DIFFE RENTI AL/PL ATELE T hemoglobin 13.8 g/dL 11.1-1 5.9 normal Not Available [facility] ([facility]) [address] [facility], [place], [address], 02/07/2024 08:08:21 02/06/2002/07/2024 CBC WITH DIFFE RENTI AL/PL ATELE T hematocrit 41.5 % 34.0-4 6.6 normal Not Available [facility] ([facility]) [address] [place], [address], 02/07/2024 08:08:21 02/06/2002/07/2024 CBC WITH DIFFE RENTI AL/PL ATELE T MCV 86 fL 79-97 normal Not Available [facility] ([facility]) [address] [place], [address], 02/07/2024 08:08:21 02/06/2002/07/2024 CBC WITH DIFFE RENTI AL/PL ATELE T MCH 28.6 pg 26.6-3 3.0 normal Not Available [facility] ([facility]) [address] [facility], [place], [address], 02/07/2024 08:08:21 02/06/20 24 02/07/2024 CBC WITH DIFFE RENTI AL/PL ATELE T MCHC 33.3 g/dL 31.5-3 5.7 normal Not Available [facility] ([facility]) [address] [facility], [place], [address], 02/07/2024 08:08:21 02/06/2002/07/2024 CBC WITH DIFFE RENTI AL/PL ATELE T RDW 12.7 % 11.7-1 5.4 Not Available [facility] ([facility]) [address] [place], [address], 02/07/2024 08:08:21 02/06/2002/07/2024 CBC WITH DIFFE RENTI AL/PL ATELE T platelets 238 x10e3 /uL 150-45 0 normal Not Available [facility] ([facility]) [address] [place], [address], 02/07/2024 08:08:21 02/06/2002/07/2024 CBC WITH DIFFE RENTI AL/PL ATELE T neutrophils 60 % not estab. normal Not Available [facility] ([facility]) [address] [place], [address], 02/07/2024 08:08:21 02/06/2002/07/2024 CBC WITH DIFFE RENTI AL/PL ATELE T lymphs 32 % not estab. normal Not Available [facility] ([facility]) [address] [place], [address], 02/07/2024 08:08:21 02/06/20 24 02/07/2024 CBC WITH DIFFE RENTI AL/PL ATELE T monocytes 6 % not estab. normal Not Available [facility] ([facility]) [address] [facility], [place], [address], 02/07/2024 08:08:21 02/06/2002/07/2024 CBC WITH DIFFE RENTI AL/PL ATELE T eos 1 % not estab. normal Not Available [facility] ([facility]) [address] [facility], [place], [address], 02/07/2024 08:08:21 02/06/2002/07/2024 CBC WITH DIFFE RENTI AL/PL ATELE T basos 0 % not estab. normal Not Available [facility] ([facility]) [address] [facility], [place], [address], 02/07/2024 08:08:21 02/06/2002/07/2024 CBC WITH DIFFE RENTI AL/PL ATELE T immature cells BENCH HAND Not Available [facility] ([facility]) [address] [place], [address], 02/07/2024 08:08:21 02/06/2002/07/2024 CBC WITH DIFFE RENTI AL/PL ATELE T neutrophils (absolute) 3.7 x10e3 /uL 1.4-7. 0 normal Not Available [facility] ([facility]) [address] [place], [address], 02/07/2024 08:08:21 02/06/2002/07/2024 CBC WITH DIFFE RENTI AL/PL ATELE T lymphs (absolute) 2.0 x10e3 /uL 0.7-3. 1 normal Not Available [facility] ([facility]) [address] [place], [address], 02/07/2024 08:08:21 02/06/20 24 02/07/2024 CBC WITH DIFFE RENTI AL/PL ATELE T monocytes(ab solute) 0.4 x10e3 /uL 0.1-0. 9 normal Not Available [facility] ([facility]) [address] [facility], [place], [address], 02/07/2024 08:08:21 02/06/2002/07/2024 CBC WITH DIFFE RENTI AL/PL ATELE T eos (absolute) 0.1 x10e3 /uL 0.0-0. 4 normal Not Available [facility] ([facility]) [address] [facility], [place], [address], 02/07/2024 08:08:21 02/06/2002/07/2024 CBC WITH DIFFE RENTI AL/PL ATELE T baso (absolute) 0.0 x10e3 /uL 0.0-0. 2 normal Not Available [facility] ([facility]) [address] [facility], [place], [address], 02/07/2024 08:08:21 02/06/2002/07/2024 CBC WITH DIFFE RENTI AL/PL ATELE T immature granulocytes 1 % not estab. Not Available [facility] ([facility]) [address] [facility], [place], [address], 02/07/2024 08:08:21 02/06/2002/07/2024 CBC WITH DIFFE RENTI AL/PL ATELE T immature grans (abs) 0.0 x10e3 /uL 0.0-0. 1 Not Available [facility] ([facility]) [address] [facility], [place], [address], 02/07/2024 08:08:21 02/06/2002/07/2024 CBC WITH DIFFE RENTI AL/PL ATELE T NRBC BENCH HAND Not Available [facility] ([facility]) [address] [facility], [place], [address], 02/07/2024 08:08:21 02/06/2002/07/2024 CBC WITH DIFFE RENTI AL/PL ATELE T hematology comments: BENCH HAND Not Available [facility] ([facility]) [address] [facility], [place], [address], 02/07/2024 08:08:21 03/13/20 24 03/13/2024 CBC WITH DIFFE RENTI AL/PL ATELE T WBC 5.2 x10e3 /uL 3.4-10 .8 normal Eff ectiv e Decem angela 2023 profi luma 21156 5 WBC will be made* * non-o rdera ble as a stand -francesco e order code. Not Available [facility] ([facility]) [address] [facility], [place], [address], 03/14/2024 08:09:57 03/13/20 24 03/13/2024 CBC WITH DIFFE RENTI AL/PL ATELE T RBC 4.69 x10e6 /uL 3.77-5 .28 normal Not Available [facility] ([facility]) [address] [facility], [place], [address], 03/14/2024 08:09:57 03/13/20 24 03/13/2024 CBC WITH DIFFE RENTI AL/PL ATELE T hemoglobin 13.5 g/dL 11.1-1 5.9 normal Not Available [facility] ([facility]) [address] [place], [address], 03/14/2024 08:09:57 03/13/20 24 03/13/2024 CBC WITH DIFFE RENTI AL/PL ATELE T hematocrit 41.3 % 34.0-4 6.6 normal Not Available [facility] ([facility]) [address] [place], [address], 03/14/2024 08:09:57 03/13/20 24 03/13/2024 CBC WITH DIFFE RENTI AL/PL ATELE T MCV 88 fL 79-97 normal Not Available [facility] ([facility]) [address] [place], [address], 03/14/2024 08:09:57 03/13/20 24 03/13/2024 CBC WITH DIFFE RENTI AL/PL ATELE T MCH 28.8 pg 26.6-3 3.0 normal Not Available [facility] ([facility]) [address] [facility], [place], [address], 03/14/2024 08:09:57 03/13/20 24 03/13/2024 CBC WITH DIFFE RENTI AL/PL ATELE T MCHC 32.7 g/dL 31.5-3 5.7 normal Not Available [facility] ([facility]) [address] [place], [address], 03/14/2024 08:09:57 03/13/20 24 03/13/2024 CBC WITH DIFFE RENTI AL/PL ATELE T RDW 12.6 % 11.7-1 5.4 Not Available [facility] ([facility]) [address] [facility], [place], [address], 03/14/2024 08:09:57 03/13/20 24 03/13/2024 CBC WITH DIFFE RENTI AL/PL ATELE T platelets 216 x10e3 /uL 150-45 0 normal Not Available [facility] ([facility]) [address] [facility], [place], [address], 03/14/2024 08:09:57 03/13/20 24 03/13/2024 CBC WITH DIFFE RENTI AL/PL ATELE T neutrophils 57 % not estab. normal Not Available [facility] ([facility]) [address] [place], [address], 03/14/2024 08:09:57 03/13/20 24 03/13/2024 CBC WITH DIFFE RENTI AL/PL ATELE T lymphs 34 % not estab. normal Not Available [facility] ([facility]) [address] [place], [address], 03/14/2024 08:09:57 03/13/20 24 03/13/2024 CBC WITH DIFFE RENTI AL/PL ATELE T monocytes 7 % not estab. normal Not Available [facility] ([facility]) [address] [place], [address], 03/14/2024 08:09:57 03/13/20 24 03/13/2024 CBC WITH DIFFE RENTI AL/PL ATELE T eos 1 % not estab. normal Not Available [facility] ([facility]) [address] [place], [address], 03/14/2024 08:09:57 03/13/20 24 03/13/2024 CBC WITH DIFFE RENTI AL/PL ATELE T basos 0 % not estab. normal Not Available [facility] ([facility]) [address] [place], [address], 03/14/2024 08:09:57 03/13/20 24 03/13/2024 CBC WITH DIFFE RENTI AL/PL ATELE T immature cells BENCH HAND Not Available [facility] ([facility]) [address] [place], [address], 03/14/2024 08:09:57 03/13/20 24 03/13/2024 CBC WITH DIFFE RENTI AL/PL ATELE T neutrophils (absolute) 3.0 x10e3 /uL 1.4-7. 0 normal Not Available [facility] ([facility]) [address] [place], [address], 03/14/2024 08:09:57 03/13/20 24 03/13/2024 CBC WITH DIFFE RENTI AL/PL ATELE T lymphs (absolute) 1.8 x10e3 /uL 0.7-3. 1 normal Not Available [facility] ([facility]) [address] [place], [address], 03/14/2024 08:09:57 03/13/20 24 03/13/2024 CBC WITH DIFFE RENTI AL/PL ATELE T monocytes(ab solute) 0.4 x10e3 /uL 0.1-0. 9 normal Not Available [facility] ([facility]) [address] [facility], [place], [address], 03/14/2024 08:09:57 03/13/20 24 03/13/2024 CBC WITH DIFFE RENTI AL/PL ATELE T eos (absolute) 0.1 x10e3 /uL 0.0-0. 4 normal Not Available [facility] ([facility]) [address] [facility], [place], [address], 03/14/2024 08:09:57 03/13/20 24 03/13/2024 CBC WITH DIFFE RENTI AL/PL ATELE T baso (absolute) 0.0 x10e3 /uL 0.0-0. 2 normal Not Available [facility] ([facility]) [address] [facility], [place], [address], 03/14/2024 08:09:57 03/13/20 24 03/13/2024 CBC WITH DIFFE RENTI AL/PL ATELE T immature granulocytes 1 % not estab. Not Available [facility] ([facility]) [address] [facility], [place], [address], 03/14/2024 08:09:57 03/13/20 24 03/13/2024 CBC WITH DIFFE RENTI AL/PL ATELE T immature grans (abs) 0.1 x10e3 /uL 0.0-0. 1 Not Available [facility] ([facility]) [address] [place], [address], 03/14/2024 08:09:57 03/13/20 24 03/13/2024 CBC WITH DIFFE RENTI AL/PL ATELE T NRBC BENCH HAND Not Available [facility] ([facility]) [address] [place], [address], 03/14/2024 08:09:57 03/13/20 24 03/13/2024 CBC WITH DIFFE RENTI AL/PL ATELE T hematology comments: BENCH HAND Not Available [facility] ([facility]) [address] [facility], [place], [address], 03/14/2024 08:09:57 03/13/20 24 03/14/2024 RAGHU TIN ferritin 39 NG/mL 15-150 normal Not Available [facility] ([facility]) [address] [facility], [place], [address], 03/14/2024 08:09:57 02/14/20 24 02/13/2024 US, trans [...] at menarc he and sympto ms. WSN: [id number] Orderi ng Physic lakshmi: Erinn Valdivia Dictat ed By: Del Diaz MD Dictat ed Date/T saúl: 10:33 a Review ed By: Del Diaz MD Signed By: Del Diaz MD Signed Date/T saúl: 10:33 am Transc ribed By: ART Transc ribed Date/T saúl: 10:21 am Patien t Class: 5 [facility] (Outpt Imaging) [address] , [place], [address], 03/14/2024 19:21:05 02/22/20 24 02/22/2024 CT, head [...] mGy*cm . COMPAR SARAH: 021 FINDIN GS: Atmospheric Chemist view findin gs, lines and tubes: None. [...] to accoun t for headac he. WSN: [id number] Orderi ng Physic lakshmi: Erinn Valdivia Dictat ed By: Tone Collins MD Dictat ed Date/T saúl: 4:44 pm Review ed By: Tone Collins MD Signed By: Tone Collins MD Signed Date/T saúl: 4:44 pm Transc ribed By: ART Transc ribed Date/T saúl: 4:42 pm Patien t Class: [address] (Outpt Imaging) [address] [place] [address], [address], 03/14/2024 19:21:04 08/01/19 25 07/30/2024 CT, head, w/o contr ast No observ ation record ed. [address], [address], 07/31/2024 12:57:18 Result Notes None recorded. Problems Name Problem SNOMED Code Status Onset Date Resolution Date Notes Provider Name and Address Organization Details Recorded Time Severe obesity 8070793135745 4 Active 2023 Erinn Valdivia NP [address] [address], [place], [address], [place] [facility] 4 11:15:01 Nausea 064905691 Active 2023 Erinn Valdivia NP [address] [address], [place], [address], [place] [facility] 4 07:48:26 Ganglion cyst of left wrist 6004130726148 00 Active 2023 Erinn Valdivia NP [address] [address], [place], [address], [place] [facility] 4 10:50:05 New daily persistent headache 3242978377361 05 Active 2023 Erinn Valdivia, KRISTIN [address] [facility], [place], [address], [place] [facility] 4 08:48:36 Irregular intermenstr ual bleeding 71643870 Active 2023 Erinn Valdivia, BENCH HAND [address] [facility], [place], [address], [place] [facility] 4 08:57:05 Iron deficiency without anemia 833932434 Active 2023 Erinn Valdivia, BENCH HAND [address] [facility], [address], [place], [address], [place] [facility] 4 11:14:24 Bilateral pendulous breasts 1832484497803 9103 Active 2023 Erinn Valdivia, KRISTIN [address] [facility], [address], [place], [address], [place] [facility] 4 14:20:42 Migraine 94657491 Active 2023 Erinn Valdivia NP [address] [facility], [address], [place], [address], [place] [facility] 4 14:34:31 Amenorrhea 44316346 Active 2023 Erinn Valdivia, KRISTIN [address] [facility], [address], [place], [address], [place] [facility] 4 19:18:34 Polycystic ovary syndrome 280716465 Active 2023 Erinn Valdivia, KRISTIN [address] [facility], [address], [place], [address], [place] [facility] 4 19:18:54 Problem Notes None recorded. Procedures Surgical History Date Name Laterality Status Provider Name and Address Organization Details Recorded Time 9 ENT Surgery completed Abby Hopkins [place] [facility] 11/04/2022 09:55:22 Imaging Results Imaging Date Name Status LastModified by Organization Details LastModified Time 02/13/2024 US, transvaginal completed [facility] (Outpt Imaging) [address] [place], [address], 03/14/2024 19:21:05 02/22/2024 CT, head + brain, w/o contrast completed [address] (Outpt Imaging) [address] [place], [address], 03/14/2024 19:21:04 07/30/2024 CT, head, w/o contrast completed [address] [place], [address], 07/31/2024 12:57:18 Procedure Notes None recorded. Medical [...] rash moderate severe severe Not available 11/04/2022 65825 2 RxNorm Abby Sandeep null, [place] [facility] 3 09:55:02 4056 honey bee venom medicatio n anaphylax is severe Not available 11/04/2022 65835 7 RxNorm Abby Sandeep null, [place] - [...] Not Available Not Available No t Available Depo-Electric Golf Cart Repairer a 150 mg/mL intramuscul ar suspension Inject [...] Not Available No t Available [address] [facility] spacer INHALE 1 EACH INTO THE [...] cm 83 /min 48.1 kg/m2 99 % 433410. 19 g 97 % 97 % 134 mm[Hg] 78 mm[Hg] Isidro Lynn [address] [place] [address], [facility] [place], [address] PAUL Richardson - [facility] 4 10:05:58 Date Recorded Body height Heart rate Body mass index (BMI) Percentile per age and sex Body mass index (BMI) Body weight Oxygen saturation Oxygen saturation in Arterial blood by Pulse oximetry Systolic blood pressure Diastolic blood pressure Provider Name and Address Organization Details Last Updated DateTime 4 165.1 cm 101 /min 99 % 48.3 kg/m2 074258. 79 g 98 % 98 % 122 mm[Hg] 70 mm[Hg] Isidro Lynn [address] [facility], [facility] [address], [place], [address], [place] [facility] 4 14:06:11 [...] Or Have You Ever Used Smokeless Tobacco? [id number] Information not available 11/04/2022 How Much Tobacco [...] quadrivalent, PF 2 completed Abby Hopkins null, [place] [facility] 11/04/2022 09:55:29 Influenza, split virus, quadrivalent, PF 3 completed Deborah Villafana null, [place] [facility] 02/18/2023 13:22:13 Tdap 3 completed Erinn Valdivia NP 55 [facility], [facility] [address], [place], [address], [facility] 11/10/2022 08:48:37 Hep A-Hep B 3 [facility] [place] [facility] 01/30/2024 08:28:59 Influenza, split virus, trivalent, PF 4 completed Erinn Valdivia NP 55 [facility] [address], [place], [address], [facility] 03/14/2024 19:12:46 Past Encounters Encounter ID Performer Location Encounter Start Date Encounter Closed Date Diagnosis/Indication Diagnosis SNOMED-CT Code Diagnosis ICD10 Code Diagnosis Note [id number] Erinn Valdivia NP Main Office [address] [place] [address],[facility] [address] [facility] [place] [address] 11/04/2022 09:51:22 11/04/2022 10:38:05 Contraception education 550311275 Z30.09 Pt educated on the different forms of BC available. Pt says that she has tried the pill and the implant. Pt wishes to try the shot and does not have an interest in the IUD or Nuva Ring. Needs test before nursing administer s. Weight gain 4916801 R63. 5 Check labs for any underlying causes. If absent, consider nutrition referral. Obesity 177458802 E66.9 As above. Check labs. F/u in 2-4 weeks. Screening for cardiovascular system disease 515109098 Z13.6 [id number] Erinn Valdivia NP Main Office [address] [place] [address] [address] [place] [address] 11/09/2022 11:19:48 11/09/2022 12:00:29 Contraception education 646176480 Z30.09 Wound of skin 600226137 T14.8XXA no s s/x of infection, pt is due for updated Td. both Gr-mother and pt not sure when last one given Active or passive immunization 207165062 Z23 [id number] Erinn Valdivia NP Main Office [address] [place] [address] [address] [facility] [place] [id number] 11/19/2022 11:21:53 11/19/2022 12:08:42 Obesity 936791175 E66.9 reviewed heart healthy diet, suggest incorporat ing healthy high fiber and high protein foods. She is agreeable to nutritioni st referral. Could consider GLP 1 agonist in the future, f/u 3 months after she has seen nutritioni st and also PT. Bilateral pendulous breasts 8369696092 1450104 N64.89 Desires reduction, due to upper back pain. Pt has upcoming appt with PT to address upper back pain, f/u after this. [id number] Derrek Lucia Mock DO Main Office [address] [place] [address] [address] [place] [address] 01/25/2023 15:21:33 01/25/2023 15:34:30 Contraception education 689837817 Z30.09 [id number] Erinn Valdivia NP Main Office [address] [place] [address] [address] [facility] [place] [id number] 02/18/2023 13:19:44 02/18/2023 13:51:00 Bilateral pendulous breasts [id number] 8974003 N64.89 Desires reduction, due to upper back pain. PT has not been helpful. Will place referral to plastic surgeon. Obesity 793058611 E66.9 reviewed heart healthy diet, suggest incorporat [...] f/u 3 months. Advised on possible s/e. [id number] Erinn Valdivia NP Main Office [address] [place] [address] [address] [place] [address] 04/15/2023 13:27:21 04/15/2023 13:44:01 Contraception care management 391391680 Z30.9 [id number] Erinn Valdivia NP Main Office [address] [place] [address] [address] [place] [address] 05/19/2023 15:34:24 05/19/2023 16:10:56 Morbid obesity 150112581 E66.01 reviewed heart healthy diet, suggest incorporat ing healthy high fiber and high protein foods. I advised her to check with [employer] to find a nutritioni st who she [...] does not want to start for now. [id number] Erinn Valdivia NP Main Office [address] [place] [address] [address] [place] [address] 06/28/2023 08:17:19 06/28/2023 08:56:22 Upper respiratory infection 04581597 J06.9 [id number] Erinn Valdivia NP Main Office [address] [place] [address] [address] [place] [id number] 07/18/2023 13:43:34 07/18/2023 14:01:36 Contraception care management 343286774 Z30.9 [id number] Erinn Valdivia NP Main Office [address] [place] [address] [address] [place] [address] 08/09/2023 11:02:22 08/09/2023 11:36:03 Severe obesity 4990462939 9104 E66.01 Dietary modificati ons, increased exercise has not produced significan t weight loss.Naltr exone not helpful and also caused nausea.Cou ld consider referral for bariatric surgery in the future; however she would like to start GLP1 agonist. We reviewed indication s for use, possible s/e, appropriat e administra tion, and expected effects. Will f/u in 3 months, sooner PRN. [id number] Erinn Valdivia NP Main Office [address] [place] [address],[address] [place] [address] 09/15/2023 09:59:16 09/15/2023 10:54:12 Adult health examination 134968895 Z00.01 UTD on preventati ve care, immunizati ons. Severe obesity 877978854 1 9104 E66.01 Dietary modificati ons, increased [...] to bariatric surgery. Venereal d isease screening 904816578 Z11.3 Agreeable to screen. [id number] Erinn Valdivia NP Main Office [address] [place] [address],[address] [place] [address] 10/18/2023 12:56:59 10/18/2023 13:16:43 Contraception care management 812426300 Z30.9 [id number] Erinn Valdivia NP Main Office [address] [place] [address],[address] [place] [address] 11/22/2023 10:39:08 11/22/2023 11:06:55 Ganglion cyst of left wrist 3031530640 05529 M67.432 Likely recurrence of ganglion, refer to hand specialist as below. Severe obesity 512326717 1 9104 E66.01 Dietary modificati ons, increased [...] surgery depending on effects of medication . [id number] Erinn Valdivia NP Main Office 55 [facility],[address] [place] [address] 01/31/2024 08:35:58 01/31/2024 09:02:33 Contraception care management 556138766 Z30.9 Will switch to progestero ne only pill as she has new headaches, need to further investigat e. Discussed importance of taking at the same time every day to prevent . New daily persistent headache 8476184060 81445 G44.52 Needs further evaluation , ? migraines vs tension headache, malignancy not likely but need to rule out as these are new and worsening, and she does have first degree family member with brain tumor. Check head CT and plan to f/u with results. Irregular intermenstrual bleeding 70143805 N92.1 Check US/labs as below. May need procedure writer consult. [id number] Erinn Valdivia NP Main Office 55 [facility],[address] [place] [address] 03/14/2024 14:00:23 03/14/2024 14:46:16 Bilateral pendulous breasts 5812235816 2428417 N64.89 Desires reduction, due to upper back pain. PT has not been helpful. Will place referral to plastic surgeon. Has not improved despite attempting well fitting bras which actually have not been readily available. Migraine 65434374 G43.90 9 Exam normal, CT normal.Con literacy tutor role of migraines although she denies associated [...] months, sooner PRN. Active or passive immunization 453474301 Z23 Agreeable to flu shot. Polycystic ovary syndrome 184198664 E28.2 Assessment : Symptoms consistent with PCOS, including irregular periods. Ultrasound findings support diagnosis but not definitive . Discussed treatment theory of treating underlying insulin resistance . Plan: Consider starting Zepbound for weight loss and management of insulin resistance related to PCOS. Follow-up: Monitor symptoms and evaluate response to Zepbound. Could consider procedure writer or endocrinol ogy referral. Severe obesity 130159525 1 9104 E66.01 Dietary modificati ons, increased [...] Kimbrough Member ID Guarantor Name 09/15/2023 1 [facility] ([facility] [id number] Luciano Bahena Addie [id number] Marion Addie 09/15/2023 2 [place] Marion E Addie [id number] Marion Addie 10/18/2023 1 [facility] ([facility] [id number] Luciano R Addie [id number] Marion Addie 10/18/2023 2 [place] Marion E Addie [id number] Marion Addie 11/22/2023 1 [facility] ([facility] [id number] Luciano R Addie [id number] Marion Addie 11/22/2023 2 [place] Marion E Addie [id number] Marion Addie 01/31/2024 1 [place]: [facility] ([facility] [id number] Luciano Bahena Addie [id number] Marion Addie 01/31/2024 2 [facility] Aaron Addie [id number] Marion Addie 03/14/2024 1 [place]: [facility] ([facility]) [id number] Luciano Bahena Addie [id number] Marion Addie 03/14/2024 2 [place] Marion Aaron Addie [id number] Marion Addie Notes Date Note Type Note [...] safe in relationship. Erinn Valdivia NP [address], [address], [facility] 09/15/2023 12:38:47 10/18/2023 text/html Patient presents to office for routine medication administration for contraceptive care. Patient states she is doing well and has no questions or concerns at this time. Erinn Valdivia NP 55 [facility] [address], [place], [address], [place] [facility] 10/18/2023 13:38:18 11/22/2023 [...] Last BMI 48.1 Erinn Valdivia NP 55 [facility], [facility] [address], [place], [address], [place] [facility] 11/22/2023 12:28:36 01/31/2024 [...] Current medicationsDepot control Erinn Valdivia NP 55 [facility], [facility] [address], [place], [address], [place] [facility] 01/31/2024 09:16:11 03/14/2024 [...] but plans to after thanksgiving. Erinn Valdivia, BENCH HAND 55 [facility], [facility] [address], [place], [address], [facility] 03/14/2024 19:21:40 OBGyn Episode No OBEpisode recorded.
[2024-08-29 11:28] VITALS: BMI 48.3
--- NOTE | 2024-08-30 10:01 | HO.ANESPROP2 ---
Documented by User: Hailey Varner NP 10/05/24 14:21 HPI - Anesthesia Eval Consult details Narrative: 19yo F for Appendectomy Laparoscopic, possible open, 10/23/24 BMI 48 PMFSH Active Problems Active Problems: All Active Problems Morbid obesity due to excess calories (Acute) Past Medical History Medical History Hx of thyroid disease Thyroglossal duct cyst Morbid obesity due to excess calories Surgical History Surgical History History of placement of ear tubes S/P carpal tunnel release Social History Social History Household Members: Family Housing: Apartment Do you presently have visiting nurse or other home services: No Patient Tobacco Use Status: Never used Tobacco Tobacco use type: Smokeless Tobacco e-Cigarette/Vaping Use: Currently Using Second Hand Smoke Exposure: No Substance Use Type: Marijuana Advance Directives: No Advance Directives Information Provided: Yes service: No Meds Allergies Allergy/AdvReac Type Severity Reaction Status Date / Time amoxicillin (From AUGMENTIN) AdvReac Mild Anaphylaxis Verified 08/01/24 14:38 clavulanic acid (From AdvReac Mild STOMACH Verified 08/01/24 14:38 AUGMENTIN) UPSET Home Medications ?Medication ?Instructions ?Recorded ?Confirmed ?Last Taken ?Type No Known Home Meds 10/23/24 10/23/24 Unknown History Exam Height,Weight and Vital Signs: Height 5 ft 5 in Weight 131.542 kg Pertinent Lab Results Pertinent Lab Results: Laboratory Tests 07/30/24 20:21 WBC 7.0 Hgb 13.8 Hct 38.7 Plt Count 221 Sodium 140 Potassium 3.9 Chloride 110 H Carbon Dioxide 24 BUN 13 Creatinine 0.78 Assessment and Plan Assessment Anesthesia Assessment: Chart Reviewed Documented by User: Marisol Osman MD 10/23/24 09:17 [facility] Past Medical History Medical History Hx of thyroid disease Thyroglossal duct cyst Morbid obesity due to excess calories Family History Family history of problems with anesthesia: No Surgical History Surgical History History of placement of ear tubes S/P carpal tunnel release History of Problems with Anesthesia: No Social History Social History Household Members: Family Housing: Apartment Do you presently have visiting nurse or other home services: No Patient Tobacco Use Status: Never used Tobacco Tobacco use type: Smokeless Tobacco e-Cigarette/Vaping Use: Currently Using Second Hand Smoke Exposure: No Substance Use Type: Marijuana Advance Directives: No Advance Directives Information Provided: Yes service: No Meds Allergies Allergy/AdvReac Type Severity Reaction Status Date / Time amoxicillin (From AUGMENTIN) AdvReac Mild Anaphylaxis Verified 08/01/24 14:38 clavulanic acid (From AdvReac Mild STOMACH Verified 08/01/24 14:38 AUGMENTIN) UPSET Home Medications ?Medication ?Instructions ?Recorded ?Confirmed ?Last Taken ?Type No Known Home Meds 10/23/24 10/23/24 Unknown History Exam Airway Mallampati Class: II TM Dist: >3cm Neck ROM: Full Heart: rrr Lungs: cta Assessment and Plan Assessment Anesthesia Assessment: Anesthesia Plan Discussed Final Anesthetic Review Family History of Problems with Anesthesia: No History of Problems with Anesthesia: No NPO: Yes ASA Class: III Final Preanesthetic Review: No Changes in Pt Med Stat, Meds/Allgs Chart Reviewed, Consent Obtained/Reviewed and Anes Risks/Benef Reviewed Patient Risk: Intermediate Procedure Risk: Intermediate Anesthetic Plan Anesthetic Plan: GA Disposition: Standard PACU
[2024-10-23] VITALS (13 sets, daily range): BP systolic 102–135; BP diastolic 67–89; PULSE 53–89; RESP 16–20; TEMP 36.1–36.4; O2SAT 94–98; BMI 45.1
[2024-10-23 09:10] LABS: UPreg QC Valid YES
[2024-10-23] MEDS: Lactated Ringers 1,000 ML 100 ML IVCONT (09:28)
--- NOTE | 2024-10-23 10:32 | MHC.SHP ---
Pre-Procedural Eval Section A - 24 Hr Update-Section A only Date of Service: 10/23/24 Section B - Complete if H&P > 30 days Chief Complaint: Unspecified acute appendicitis Details of Present Illness: Had acute appendicitis in June,, now here for interval appendectomy Relevant Social History: None Present Medications: see Short Stay Collaborative assessment Medical History: Significant History (Morbid obesity) Allergies: Allergies Allergy/AdvReac Type Severity Reaction Status Date / Time amoxicillin (From AUGMENTIN) AdvReac Mild Anaphylaxis Verified 08/01/24 14:38 clavulanic acid (From AdvReac Mild STOMACH Verified 08/01/24 14:38 AUGMENTIN) UPSET Review of Systems Sugical H&P ROS: Negative: Cardiovascular, Respiratory and Gastrointestinal and Yes, Specify: Constitution (Morbidly obese) Exam Surgical H&P Exam: Normal: Heart, Normal: Lungs and Normal: Abdomen Exam Comment: Morbidly obese Plan Diagnosis/Plan: Unchanged I have reviewed the history and physical and performed a pertinent physical examination on my patient. No changes have occurred unless specified. Time Spent With Patient Time: Total time managing care of this patient today ____ minutes.
[2024-10-23] MEDS: cefoTEtan disodium 2 GM VIAL IVPUSH (11:23)
--- NOTE | 2024-10-23 12:12 | P.OP_ITS ---
Operative Note Operative Note Date of Service: 10/23/24 Narrative: Preop diagnosis: History of acute appendicitis, for interval appendectomy Postop diagnosis: The same Procedure: Laparoscopic appendectomy, with extensive lysis of adhesions Surgeon: Carl Huang MD butcher assistant: JOSEPH Contreras The patient is a 19 year old female, more deeply obese with a BMI of 45, here for interval laparoscopic appendectomy. She had a history of acute appendicitis in June, treated with antibiotics. She wanted to proceed with interval appendectomy. She understood the technique of the planned procedure as was the risks, benefits, and alternatives She was morbidly obese and understood the higher perioperative risks. She was brought to the operating room. She was placed supine under general anesthesia via endotracheal tube. The abdomen was prepped and draped usual john michael. A Bell catheter has been inserted earlier. A surgical time-out had been done. I made a short supraumbilical incision with a blade 15. This was carried down through the full-thickness of the skin and thick subcutaneous fat down to the fascia. We had to go through very thick amounts of subcutaneous fat in view of her morbid obesity. The fascia was incised. The peritoneum was entered. Through this incision a Quintero port was introduced. Pneumoperitoneum was introduced to a pressure of 15 mm Hg. From here on the rest of the procedure was done under vision with the 10 mm 30 degree laparoscope. With laparoscopic visualization I inserted a 10 mm port in the left lower quadrant through a small stab incision. A 5 mm port was introduced via a small incision in the suprapubic margin. Graspers were placed through the working ports. The patient was placed in a head up and [id number] position. The cecum was seen and the appendix was visualized. The small bowel loops were reflected away from the right lower quadrant to expose the entire cecum and appendix. The appendix was adherent to the sidewall as well as to the surrounding cecum and we had to do a lot of careful lysis of adhesions using the LigaSure. The grasper was then applied at the mid appendix to put this on stretch. The appendix was long, not acute inflamed although with signs of previous inflammation as suggested by adhesions. I placed the appendix on stretch to define the base. I used the [place] dissector to define the base and create a mesenteric window. I used an Endo-GEORGE 30 mm stapler and positioned this at the base of the appendix. The appendix was therefore transected. I divided the attached mesoappendix with serial application of the LigaSure including on the appendiceal artery. The appendix was retrieved through an endobag through the left lower quadrant incision. I reinserted all ports and re-insufflated. The appendiceal stump was examined. There was noted good hemostasis. The staple line appeared intact. I observed all 4 quadrants. There was no other pathology seen. There was no evidence of any bowel injury. Once hemostasis was confirmed, I irrigated the area of dissection and suctioned out the irrigant fluid. I pulled the omentum to the right lower quadrant. I then desufflated through the port sites. I removed all ports under vision with the laparoscope. The umbilical port was removed last. The fascia of the umbilical incision was closed with a yojmez-uf-mnaai Polysorb 0 stitch. Skin closure was achieved on all incisions using Polysorb 4-0 subcuticular running sutures. All incisions were infiltrated with Marcaine 0.5% for postop analgesia. Dressings were applied. The procedure was completed. The patient tolerated the procedure well. There were no immediate complications. Initial and final counts of sponges and instruments were correct. Estimated blood loss was about 25 cc. The patient was extubated without difficulty and transferred to the recovery room with stable vital signs.
== END 2024-10-23 15:33 | disposition home or self-care (01) ==
PROVIDERS: Nurse Practitioner; PCP Nurse Practitioner Family; Visit Provider Surgery
PROC: 0DTJ4ZZ Resection of Appendix, Percutaneous Endoscopic Approach (ICD-10-PCS; CPT 44970; principal; 2024-10-23 11:00)
DX: K35.80 Unspecified acute appendicitis (principal); K66.0 Peritoneal adhesions (postprocedural) (postinfection); E66.01 Morbid (severe) obesity due to excess calories; Z68.42 Body mass index [BMI] 45.0-49.9, adult; Z88.1 Allergy status to other antibiotic agents; Z79.899 Other long term (current) drug therapy; Z98.890 Other specified postprocedural states
CPT/HCPCS: 44970; 49329; 81025; 88304; J0131; J1100; J1885; J2250; J2405; J2704; J2795; J3010

== ENCOUNTER → 2024-10-23 08:55 | Outpatient (BNV) | payer BC, MEDICAID, SELFPAY | PROVIDERS: PCP Nurse Practitioner Family; Visit Provider Surgery | DX: K35.80 Unspecified acute appendicitis (principal) | CPT/HCPCS: 44970 ==

== ENCOUNTER 2024-11-15 15:05 | Outpatient (AMB) | payer BC, MEDICAID, SELFPAY ==
--- NOTE | 2024-11-15 15:06 | A.OFFVIS_ITS ---
Vital Signs 11/15/24 15:11 Weight 265 lb BP 108/75 Blood Pressure Location Rt brachial Position Sitting Pulse 94 Intake Visit Reasons: s/p lap appendectomy Intake Note: Patient here s/p Laparoscopic appendectomy, with extensive lysis of adhesions. Patient c/o: burning sensation that feels like pins and needles next to lower abdominal scar. Surgery: 10-23-2024 Journeyman Glazier Required: No Accompanied by: Self / Same As Patient Allergies amoxicillin (From AUGMENTIN) Adverse Reaction (Mild, Verified 11/15/24 15:11) Anaphylaxis clavulanic acid (From AUGMENTIN) Adverse Reaction (Mild, Verified 11/15/24 15:11) STOMACH UPSET HPI HPI s/p lap appendectomy: Details: Patient reports she is overall doing very well. She is not having any abdominal pain, but she does note some numbness towards the midline of the suprapubic incision site. She denies any drainage, redness from the incision site and states they are not painful. She reports her diet and bowel function are at baseline. Denies fever, chills, nausea, vomiting. She denies any heavy lifting, is currently on worker's comp so as not returning to work at this time. [facility] Medical History Hx of thyroid disease Thyroglossal duct cyst Morbid obesity due to excess calories Surgical History (Updated 11/15/24 @ 15:20 by Clayton Mejia PA-C) History of laparoscopic appendectomy (10/23/24) History of placement of ear tubes S/P carpal tunnel release Social History Household Members: Family Housing: Apartment Do you presently have visiting nurse or other home services: No Comment: COUNTS CORRECT Patient Tobacco Use Status: Never used Tobacco Tobacco use type: Smokeless Tobacco e-Cigarette/Vaping Use: Currently Using Second Hand Smoke Exposure: No Substance Use Type: Marijuana service: No Review of Systems Const All systems reviewed & are unremarkable except as noted in HPI and below Physical Exam Vital Signs: Last Vital Signs Pulse 94 11/15/24 15:11 BP 108/75 11/15/24 15:11 Const General: comfortable and no acute distress Orientation/consciousness: patient oriented x3 Resp Effort & Inspection: normal respiratory effort and able to speak in complete sentences GI Other: Incision sites appear to be healing well, no surrounding erythema, nontender Protuberant abdomen Inspection: No distended Palpation (GI): Soft to palpation, nontender, no guarding and not rigid Neuro General: patient oriented x3 Assessment & Plan Assessment & Plan (1) S/P laparoscopic appendectomy: Code(s): Z90.49 - Acquired absence of other specified parts of digestive tract Category: Medical Plan 19-year-old female s/p laparoscopic appendectomy on 10/23 presenting to the office for routine postoperative follow up. Overall the patient is doing well, she denies any abdominal pain. She denies nausea, vomiting, fever, chills. Appetite and bowel function are at baseline. On exam her abdomen is soft and benign, the incision site appeared to be healing well, I am not concerned for any infection at this time. In regards to her numbness, this may be an injury to a nerve during the procedure. And I reassured her that this should go away with time. At this point and we will lift the restrictions for activity, I recommended that the patient resume activity at half of her baseline level activity and progress towards her baseline. She is no longer requiring follow up at this time. She can follow up as needed for any future concerns. Coding Level of Care Code Global (73322) Diagnoses S/P laparoscopic appendectomy Z90.49
--- OUTSIDE RECORDS SUMMARY | 2024-11-15 15:10 | XMS_ITS | Clinical Summary ---
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 the lack of transportati on kept you from medical appointments or from getting medications? No 07/01/2022 Unemployment Answer Date Recorded Are you currently unemployed or working on a part-time or temporary basis, and looking for work? No 07/01/2022 Digital Access Answer Date Recorded No 09/18/2022 No 09/18/2022 Reliable internet access at home? Not on file 09/18/2022 Device with a working camera? Not on file Comments No Sex and Gender Information Value Date Recorded Sex Assigned at Not on file Legal Sex Female 10:23 PM EDT Gender Identity Not on file Sexual Orientation Not on file Last Filed Vital Signs Vital Sign Reading Time Taken Comments Blood Pressure 102/64 08/09/2022 10:14 AM EDT Pulse 103 08/09/2022 10:14 AM EDT Temperature 36.3 C (97.4 F) 08/09/2022 10:14 AM EDT Respiratory Rate 16 07/05/2022 5:35 PM EDT Oxygen Saturation 98% 08/09/2022 10:14 AM EDT Inhaled Oxygen Concentration - - Weight 129 kg (284 lb 6.4 oz) 08/09/2022 10:14 A M EDT Height 165.1 cm (5' 5 ) 07/05/2022 5:35 PM EDT Body Mass Index 47.33 07/05/2022 5:35 PM EDT Plan of Treatment Health Maintenance Due Date Last Done Comments PEDIATRIC ASTHMA CONTROL TEST (ACT) 2007 SMOKING Hx and SMOKELESS TOBACCO SCREENING 08/27/2016 MENINGOCOCCAL VACCINES (B) (1 of 2 - Standard) 2019 HPV VACCINES (3 - 3-dose series) 09/23/2020 07/01/2020, 02/06/2020 PNEUMOCOCCAL VACCINES (0-49 years) (1 of 2 - PCV) 08/27/2022 12/03/2004, 03/24/2004, 01/21/2004, Additional history exists DEPRESSION SCREENING 08/10/2023 08/09/2022, 07/02/19 23 COVID-19 VACCINE ( season) 2023 12/17/2021, 05/30/2021, 03/06/2021 PAP SMEAR 08/27/2024 Adult Td,Tdap Booster 04/28/2025 04/28/2015 COMBINED DTaP,Tdap,Td (7 - Td or Tdap) 04/28/2025 04/28/2015, 09/05/2008, 12/03/2004, Additional history exists HIB VACCINES Aged Out 03/24/2004, 12/25, 2003 No longer eligible based on patient's age to complete this topic MMR VACCINES Completed 08/29/2007, 03/11/2005 HEPATITIS A VACCINES Completed 04/28/2015, 09/10/19 11 MENINGOCOCCAL VACCINES (ACWY) Completed 02/06/2020, 04/28/2015 ADOLESCENT UNIVERSAL LIPID SCREENING Completed 01/01/2022, 02/06/2020, 11/21/2018 HEPATITIS C SCREENING Completed 01/01/2022 , 01/01/2022, 01/20/2021 HIV ONE-TIME SCREENING (18-65 YEARS) Completed 01/01/2022 Medical Devices Not on file Procedures Procedure Name Priority Date/Time Associated Diagnosis Comments LIPID PANEL Routine 01/01/2022 1:30 PM EDT Hyperlipidemia, unspecified hyperlipidemia type HEPATITIS C ANTIBODY, QUALITATIVE Routine 01/01/2022 1:30 PM EDT Need for hepatitis C screening test from Last 3 Months or Most Recently Relevant to Health Maintenance Results * Hepatitis C antibody, qualitative (01/01/2022 1:30 PM EDT) HCV NON-REACTIV E NON-REACTI VE [facility] Blood 01/01/2022 1:30 PM EDT 01/01/2022 1:37 PM EDT us Isaura Ni MD LAB BLOOD ORDERABLES Fin al Result [facility] [address] [place] [address] * Lipid panel (01/01/2022 1:30 PM EDT) HDL 52 mg/dL [facility] Comment: Interpretation <40 mg/dL: Low HDL cholesterol (major risk factor for CHD) Greater than or equal to 60 mg/dL: High HDL cholesterol ( negative risk factor for CHD) HDL - cholesterol is affected by a number of factors, e.g. smoking, excerise, hormones, sex and age. CHOLESTEROL 197 0 - 240 mg/dL [facility] Comment: Pediatric Reference Ranges for 2 to 18 years Acceptable: Less than 170 mg/dL Borderline: 170 - 199 mg/dL High: Greater than or equal to 200 mg/dL TRIGLYCERIDES 149 30 - 160 mg/dL [facility] LDL 115 50 - 129 mg/dL [facility] Comment: LDL levels in terms of risk for coronary heart disease: <100 mg/dL: Optimal 100-129 mg/dL: Near or above optimal 130-159 mg/dL: Borderline high 160-189 mg/dL: High >190 mg/dL: Very High CARDIAC RISK RATIO 3.8 3.3 - 4.4 C [facility] Blood 01/01/2022 1:30 PM EDT 01/01/2022 1:38 PM EDT us Isaura Ni MD LAB BLOOD ORDERABLES Fin al Result [address] [address] from Last 3 Months or Most Recently Relevant to Health Maintenance Insurance [employer] [facility] * Guarantor: Marion Bartlett Account Type Relation to Patient Date of Phone Billing Address Personal/Family Self 2005 [address] [place] [address] [facility] Member Subscriber Plan / Payer (Ef fective 2020-Present) Name:Marion Bartlett Relation to Subscriber:Child Name:J CARLOS BARTLETT Date of :1981 (Home) Address: [address] [place] [address] Payer ID:[id number] (IC) Type:HMO Address: [phone] [place] [address] * Guarantor: Marion Bartlett Account Type Relation to Patient Date of Phone Billing Address Personal/Family Self [address] [place] [address] [facility] Member Subscriber Plan / Payer (Ef fective 2020-Present) Name:Marion Bartlett Relation to Subscriber:Child Name:J CARLOS BARTLETT Date of :1981 (Home) Address: [address] [place] [address] Payer ID:[id number] (NAIC) Type:HMO Address: [address] [place] [address] * Guarantor: Marion Bartlett Account Type Relation to Patient Date of Phone Billing Address Personal/Family Self [address] [place] [address] [facility] Member Subscriber Plan / Payer (Ef fective 2020-Present) Name:DhruvNiyaa Relation to Subscriber:Child Name:J CARLOS BARTLETT Date of :1981 (Home) Address: [address] [place] [address] Payer ID:[id number] (NAIC) Type:O Address: [facility] [address] [place] [address] * Guarantor: Dhruv, Marion Account Type Relation to Patient Date of Phone Billing Address Personal/Family Self 2005 [address] [place] [address] [facility] Member Subscriber Plan / Payer (Ef fective 2020-Present) Name:Mraion Bartlett Relation to Subscriber:Child Name:J CARLOS BARTLETT Date of :1981 (Home) Address: [address] [place] [address] Payer ID:[id number] (NA) Type:HMO Address: [address] [place] [address] * Guarantor: Marion Bartlett Account Type Relation to Patient Date of Phone Billing Address Personal/Family Self 2005 [address] [place] [address] [facility] Member Subscriber Plan / Payer (Ef fective 2020-Present) Name:Marion Bartlett Relation to Subscriber:Child Name:J CARLOS BARTLETT Date of :1981 (Home) Address: [address] [place] [address] Payer ID:[id number] (NA) Type:HMO Address: [phone] [place] [address] [facility] Member Subscriber Plan / Payer (Ef fective 2020-Present) Name:Marion Bartlett Relation to Subscriber:Child Name:J CARLOS BARTLETT Date of :1981 (Home) Address: [address] [place] [address] Payer ID:[id number] (NAIC) Type:O Address: [facility] [id number] [place] [address] [facility] Member Subscriber Plan / Payer (Ef fective 2020-Present) Name:Marion Bartlett Relation to Subscriber:Child Name:J CARLOS BARTLETT Date of :1981 (Home) Address: [address] [place] [address] Payer ID:[id number] (NAIC) Type:O Address: [facility] [id number] [place] [address] [facility] Member Subscriber Plan / Payer (Ef fective 2020-Present) Name:Marion Bartlett Relation to Subscriber:Child Name:J CARLOS BARTLETT Date of :1981 (Home) Address: [address] [place] [address] Payer ID:[id number] (NAIC) Type:O Address: [facility] [id number] [place] [address] [facility] Member Subscriber Plan / Payer (Ef fective 2020-Present) Name:Marion Bartlett Relation to Subscriber:Child Name:DHRUVJ CARLOS Date of :1981 (Home) Address: [address] [place] [address] Payer ID:[id number] (NAIC) Type:O Address: [facility] [address] [place] [address] [facility] Member Subscriber Plan / Payer (Ef fective 2020-Present) Name:Marion Bartlett Relation to Subscriber:Child Name:J CARLOS BARTLETT Date of :1981 (Home) Address: [address] [place] [address] Payer ID:[id number] (NAIC) Type:HMO Address: [address] [place] [address] [place] [address] [facility] Member Subscriber Plan / Payer (Ef fective 2020-Present) Name:Marion Bartlett Relation to Subscriber:Child Name:J CARLOS BARTLETT Date of :1981 (Home) Address: [address] [place] [address] Payer ID:[id number] (NAIC) Type:HMO Address: [phone] [place] [address] [facility] Member Subscriber Plan / Payer (Ef fective 2020-Present) Name:Marion Bartlett Relation to Subscriber:Child Name:J CARLOS BARTLETT Date of :1981 (Home) Address: [address] [place] [address] Payer ID:[id number] (NAIC) Type:O Address: [facility] [id number] [place] [address] [place] [address] [facility] Member Subscriber Plan / Payer (Ef fective 2020-Present) Name:Marion Bartlett Relation to Subscriber:Child Name:J CARLOS BARTLETT Date of :1981 (Home) Address: [address] [place] [address] Payer ID:[id number] (NAIC) Type:HMO Address: [facility] [id number] [place] [address] Care Teams Commuter Pilot Relationship Specialty Start Date End Date Isaura Ni MD [address] [place] [address] [email or web address] PCP - General Pediatrics 03/03/17 Additional Source Comments The information contained in this document represents components of the legal health record. It is not the complete legal health record.[facility]
--- OUTSIDE RECORDS SUMMARY | 2024-11-15 15:10 | XMS_ITS | Data Portability ---
Author Organization [place] - [facility], Allergy Address [address] [address] Care Team Providers Care Thermostatic Controls Supervisor Name Role Phone NATALIYA GRANADO Primary Care Provider NATALIYA GRANADO Referring Provider Assessment Encounter Date Assessment Date Assessment LastModified by Organization Details LastModified Time 05/07/2024 05/07/2024 18 year old female with eustachian tube dysfunction presents for follow up. Both tubes have fully extruded. She does have a right ear effusion on exam confirmed with tympanometry. I recommended autoinsufflation several times daily. She will follow up in 3 months. We discussed that she may require another set of tubes if effusion persists. Not available 05/07/2024 12:52:28 08/20/2024 08/20/2024 18 year old female with chronic eustachian tube dysfunction. She underwent bilateral balloon dilation of the eustachian tube with concurrent placement of short acting tympanostomy tubes in January 2023. There is mild retraction of the right TM but no fluid. This is improved from April. Left TM is intact with well aerated middle ear space. Type C tympanogram on the right and type A on the left. Recommend that she try to autoinsufflate the ears several times daily. Reassured her that this will not cause damage and is safe to do. Discussed that sometimes there is allergy or reflux that can worsen eustachian tube dysfunction but she denies allergy or reflux. Smoke exposure will also worsen eustachian tube dysfunction. Advised that she stop smoking. We discussed that another balloon dilation would not be recommended as the data does not show this to be of any benefit. She will follow up as needed. Patient seen and examined by Dr. Graves. Radha Valderrama PA-C functioned as a scribe for this visit. Not available 08/20/2024 12:42:57 Plan of Treatment Reminders Order Date Submit Date Provider Last Modified By Organization Details Last Modified Time Details Appointments None record ed. Lab None record ed. Referral None record ed. Procedures None record ed. Surgeries None record ed. Imaging None record ed. Medication Orders None record ed. Patient TargetsNo targets recorded. Patient InstructionsNo instructions [...] ation record ed. [email or web address] Not Available 01:18:55 12/14/1907/11/2020 audio gram No observ ation record ed. [...] record ed. BARCODE Not Available 2024 08:50:58 08/21/19 audio gram No observ ation record ed. BARCODE Not Available 2024 16:43:24 Result Notes None recorded. Problems Name Problem SNOMED Code Status Onset Date Resolution Date Notes Provider Name and Address Organization Details Recorded Time Conductiv e hearing loss, bilateral 036043835 Active 2014 Conductiv e HL, bilateral ; Note: Date Diagnosed : 08/12/2014 11:50 AM (389.06) ; Start Date : 5 Conduct mattie hearing loss, bilateral ; Note: Date Diagnosed : 01/22/2015 2:56 PM (H90.0) Not Available [facility] 4 02:52:30 Bilateral disorder of Eustachia n tubes 59866910444 43764 Active 2015 Other specified disorders of Eustachia n tube, bilateral ; Location: bilateral Note: Date Diagnosed : 12/18/2015 2:55 PM (H69.83) Not Available [facility] 4 02:52:33 Otorrhea of left ear 95860250712 82256 Active 2015 Otorrhea, left ear; Note: Date Diagnosed : 12/18/2015 3:16 PM (H92.12) Not Available [facility] 4 02:52:30 Dysfuncti on of eustachia n tube 55649518 Active 2015 Eustachia n tube dysfuncti on; [...] : 01/27/2014 12:47 PM (381.81) Not Available [facility] 4 02:52:34 Otorrhea of right ear 11629371137 94041 Active 2015 Otorrhea, right ear; Note: Date Diagnosed : 01/02/2016 4:23 PM (H92.11) Not Available [facility] 4 02:52:30 Granuloma tous disorder of the skin and subcutane ous tissue 103619422 Active 2016 Granuloma tous disorder of the skin and subcutane ous tissue, unspecifi ed; Note: Date Diagnosed : 01/24/2017 4:09 PM (L92.9) Not Available [facility] 4 02:52:33 Nasal congestio n 88178942 Active 2016 Nasal congestio n; Note: Date Diagnosed : 7 9:54 AM (R09.81) Not Available [facility] 4 02:52:32 Follow-up visit Active 2017 Medical surveilla nce following completed treatment ; Note: Date Diagnosed : 05/18/2017 11:21 AM (Z09) Not Available [facility] 4 02:52:34 Mixed conductiv e and sensorine ural hearing loss of right ear 70003520233 105 Active 2018 Mixed conductiv e and sensorine ural hearing loss, unilatera l, right ear, with unrestric haile hearing on the contralat eral side; Note: Date Diagnosed : 11/20/2018 2:25 PM (H90.71) Not Available [facility] 4 02:52:33 Disorder of right Eustachia n tube 41517517609 84871 Active 2019 Other specified disorders of Eustachia n tube, right ear; Note: Date Diagnosed : 11/08/2019 3:16 PM (H69.81) Not Available [facility] 4 02:52:32 Bilateral diffuse otitis externa 66470109581 55819 Active 2019 Diffuse otitis externa, bilateral ; Note: Date Diagnosed : 02/25/2020 10:48 AM (H60.313) Not Available [facility] 4 02:52:29 Bilateral temporoma ndibular joint pain 35959224015 708647 Active 2020 Arthralgi a of bilateral temporoma ndibular joint; Note: Date Diagnosed : 1 2:10 PM (M26.623) Not Available [facility] 4 02:52:29 Polyp of right middle ear 88432577397 Active 2022 Polyp of right middle ear; Note: Date Diagnosed : 05/06/2022 2:22 PM (H74.41) Not Available [facility] 4 02:52:32 Mixed conductiv e and sensorine ural hearing loss, bilateral 869666679 Active 2022 Mixed conductiv e and sensorine ural hearing loss, bilateral ; Note: Date Diagnosed : 01/13/2023 10:57 AM (H90.6) Not Available [facility] 4 02:52:33 Severe obesity 11751128469 104 Active 2022 Morbid (severe) obesity due to excess calories; Note: Date Diagnosed : 01/17/2023 11:10 AM (E66.01) Not Available [facility] 4 02:52:29 Chronic mucoid otitis media of right middle ear 24422938178 78056 Active 2022 Chronic mucoid otitis media, right ear; Note: Date Diagnosed : 01/24/2023 8:55 AM (H65.31) Not Available [facility] 4 02:52:30 Conductiv e hearing loss 57122731 Active 2023 KAREN PHILIP, [facility] [address] [facility],[place] [address], [place], [address] , [place] - [facility] 4 10:03:04 Conductiv e hearing loss 09284546 Active 2023 SHANNEN GRAVES MD [address] [facility],[place] [address], [place], [address] , [facility] - [facility] 4 10:10:27 Marijuana user 093888227 Active 2024 SHANNEN GRAVES MD [address] [facility],[place] [address], [place], [address] , [facility] - [facility] 5 21:29:26 Problem Notes None recorded. Procedures Surgical History Date Name Laterality Status Provider Name and Address Organization Details Recorded Time 08/21/19 25 Tympanometry - 20524 completed KAREN PHILIP, AUD [address] [place] [address],[place] [address], [place], [address], [facility] - [facility] 08/20/2024 10:34:23 05/07/19 25 Tympanometry - 21316 completed KAREN PHILIP, AUD [address] [facility],[place] [address], [place], [address], [place] - [facility] 05/07/2024 10:17:50 11/14/19 24 Comp Audio with Tymps - 95291 & 95784 completed KAREN PHILIP, AUD [address] [place] [address],[place] [address], [place], [address], [facility] - [facility] 11/14/2023 10:02:12 Myringotomy Tube Placement completed Paloma Augustin [place] - [facility] 11/14/2023 09:04:58 procedure on wrist completed Paloma Augustin [place] - [facility] 11/14/2023 09:05:04 tonsillectomy and adenoidectomy completed Paloma Augustin [place] - [facility] 11/14/2023 09:05:18 Imaging Results None recorded. Procedure Notes None recorded. Medical Equipment None Reported. Allergies Allergen ID Allergen Name Allergen Category Reaction Reaction Severity Criticality Documentation Date Start Date Code Code System Note Provider Name and Address Organization Details Recorded Time 430852 amoxicill in / clavulana te medicatio n other Not available Not available 09/06/2023 RxNorm React ion: unkno wn, unspe cifie d;; Not Available [facility] 4 01:26:05 617989 Augmentin medicatio n hives severe Not available 08/20/2024 15735 2 RxNorm Ginnette Rancitell i null, [place] - [facility] 5 10:12:30 130822 honey bee venom medicatio n anaphylax is severe Not available 08/20/2024 80408 7 RxNorm Ginnette Rancitell i null, [place] - [facility] 5 10:12:30 Medications Name Sig Start Date Stop Date Status Note LastModified by Organization Details LastModified Time venlafaxi ne ER 37.5 mg capsule,e xtended release 24 hr 2020 active Medicati on ID: [id number] B rand Name: venlafax ine Send Method: E-Prescr ibed Sub s Allowed: subs OK Medic ationGen ericName : venlafax ine Not Available Not Available Not Available acetamino phen 325 mg tablet 11/13 completed Medicati on ID: [id number] D uration Value: 5 Brand Name: acetamin ophen Se nd Method: E-Prescr ibed Sub s Allowed: subs OK Speci al Instruct ion: 3 TABLET BY MOUTH 4 TIMES A DAY,X5 DAYS NEEDED FOR PAIN Med icationG enericNa me: acetamin ophen Tn dication ID: [id number] D uration Value: 5 Brand Name: acetamin ophen Se nd Method: E-Prescr ibed Sub s Allowed: subs OK Speci al Instruct ion: 3 TABLET BY MOUTH 4 TIMES A DAY,X5 DAYS NEEDED FOR PAIN Med icationG enericNa me: acetamin ophen Not Available Not Available Not Available venlafaxi ne ER 75 mg capsule,e xtended release 24 hr 11/07 completed Medicati on ID: [id number] D uration Value: 30 Reason: () Brand [...] completed Not Available Not Available Not Available ondansetr on HCl 4 mg tablet TAKE 1 TABLET ORALLY EVERY 8 HOURS NEEDED FOR NAUSEA AND VOMITING active Not Available Not Available No t Available venlafaxi ne ER 150 mg capsule,e xtended release 24 hr 2020 active Medicati on ID: [id number] B rand Name: venlafax ine Send Method: E-Prescr ibed Sub s Allowed: subs OK Medic ationGen ericName : venlafax ine Not Available Not Available Not Available sumatript an 50 mg tablet TAKE 1 TABLET BY MOUTH EVERY DAY active Not Available Not Available No t Available metronida zole 500 mg tablet TAKE 1 TABLET BY MOUTH 3 TIMES A DAY active Not Available Not Available No t Available Ciloxan 0.3 % eye drops 11/13 completed Medicati on ID: [id number] D uration Value: 14 Prescri bed By Name: LOUIS Lau nd Name: Ciloxan Send Method: E-Prescr ibed Sub s Allowed: subs OK Speci al Instruct ion: Instill 4 drops twice a day into the affected ear. Med icationG enericNa me: Ciloxan Medicati on ID: [id number] D uration Value: 14 Prescri bed By Name: LOUIS Lau nd Name: Ciloxan Send Method: E-Prescr ibed Sub s Allowed: subs OK Speci al Instruct ion: Instill 4 drops twice a day into the affected ear. Med icationG enericNa me: Ciloxan Not Available Not Available Not Available ketorolac 10 mg tablet TAKE 1 TABLET ORALLY EVERY 6 HOURS NEEDED FOR PAIN MAXIMUM TOTAL DURATION OF 5 DAYS active Not Available Not Available No t Available amoxicill in 250 mg chewable tablet 01/24 completed Medicati on ID: [id number] Du ration Value: 7 Reason: () Brand Name: amoxicil loki Send Method: E-Prescr ibed Sub s Allowed: subs OK Speci al Instruct ion: CHEW ONE TABLET EVERY 6 HOURS. FOLLOW WITH WATER. Kraig Matthews Name: amoxicil loki Not Available Not Available Not Available prazosin 5 mg capsule 2020 active Medicati on ID: [id number] B rand Name: prazosin Send Method: E-Prescr ibed Sub s Allowed: subs OK Medic ationGen ericName : prazosin Not Available Not Available Not Available oxycodone -acetamin ophen 5 mg-325 mg tablet TAKE 1 TABLET BY MOUTH 3 TIMES A DAY NEEDED FOR PAIN active Not Available Not Available No t Available ofloxacin 0.3 % ear drops Instill 3 drop into both ears twice a day 11/13 completed Medicati on ID: [id number] D uration Value: 3 Prescri bed By Name: Keegan Sandoval nd Name: ofloxaci n Send Method: E-Prescr ibed Sub s Allowed: subs OK Speci al Instruct ion: x 5 days Med icationG enericNa me: ofloxaci n Medica tion ID: [id number] D uration Value: 3 Prescri bed By [...] mg tablet 04/11 completed Medicati on ID: [id number] Re ason: () Brand Name: ibuprofe n Send Method: E-Prescr ibed Sub s Allowed: subs OK Medic ationGen ericName : ibuprofe n Not Available Not Available Not Available mupirocin 2 % topical ointment 11/13 completed Medicati on ID: [id number] D uration Value: 14 Brand Name: mupiroci n Send Method: E-Prescr ibed Sub s Allowed: subs OK Medic ationGen ericName : pia n Medica tion ID: [id number] D uration Value: 14 Brand Name: pia n Send Method: E-Prescr ibed Sub s Allowed: subs OK Medic ationGen ericName : treasurerocjob n Not Available Not Available Not Available epinephri ne 0.3 mg/0.3 mL injection , auto-inje ctor USE DIRECTED FOR ANAPHYLA XIS, THEN CALL 911. active Not Available Not Available No t Available polyethyl augusto glycol 3350 17 gram/dose oral powder 2019 active Medicati on ID: [id number] D uration Value: 7 Brand Name: polyethy tanner glycol 3350 Sen d Method: E-Prescr ibed Sub s Allowed: subs OK Speci al Instruct ion: TAKE 17 GRAMS DISSOLVE D IN 8 OZ JUICE TWICE DAILY UNTIL PROFUSE WATERY DIARRHEA . THEN 17 GRAMS IN AM Medic ationGen ericName : polyethy tanner glycol 3350 Not Available Not Available Not Available levofloxa maritza 500 mg tablet TAKE 1 TABLET BY MOUTH DAILY active Not Available Not Available No t Available ondansetr on 4 mg disintegr ating [...] mg capsule 2019 active Medicati on ID: [id number] D uration Value: 28 Brand Name: prazosin Send Method: E-Prescr ibed Sub s Allowed: subs OK Medic ationGen ericName : prazosin Not Available Not Available Not Available oxycodone 5 mg tablet Take 1 tablet by mouth every four hours as needed for pain 11/13 completed Medicati on ID: [id number] D uration Value: 3 Prescri bed By Name: Keegan Sandoval nd Name: oxycodon e Send Method: E-Prescr ibed Sub s Allowed: subs OK Medic ationGen ericName : oxycodon e Medica tion ID: [id number] D uration Value: 3 Prescri bed By Name: Shannen Graves M.D. Bra nd Name: oxycodon e Send Method: E-Prescr ibed Sub s Allowed: subs OK Medic ationGen ericName : oxycodon e Not Available Not Available Not Available TobraDex 0.3 %-0.1 % eye drops,manolo pension 11/13 completed Medicati on ID: [id number] D uration Value: 14 Brand Name: TobraDex Send Method: E-Prescr ibed Sub s Allowed: subs OK Speci al Instruct ion: Instill 4 drops in the right ear BID for 14 days Med icationG enericNa me: TobraDex Medicat ion ID: [id number] D uration Value: 14 Brand Name: TobraDex Send Method: E-Prescr ibed Sub s Allowed: subs OK Speci al Instruct ion: Instill 4 drops in the right ear BID for 14 days Med icationG enericNa me: TobraDex Not Available Not Available Not Available escitalop martina 10 mg tablet 11/07 completed Medicati on ID: [id number] D uration Value: 30 Reason: () Brand Name: escitalo pram oxalate Send Method: E-Prescr ibed Sub s Allowed: subs OK Medic ationGen ericName : escitalo pram oxalate Not Available Not Available Not Available escitalop martina 20 mg tablet 07/11 completed Medicati on ID: [id number] D uration Value: 30 Brand Name: escitalo pram oxalate Send Method: E-Prescr ibed Sub s Allowed: subs OK Medic ationGen ericName : escitalo pram oxalate Not Available Not Available Not Available ciproflox acin 0.3 %-dexamet hasone 0.1 % ear drops,manolo pension Instill 4 drop into right ear twice a day as directed 11/13 completed Medicati on ID: [id number] D uration Value: 14 Brand Name: ciproflo xacin-de xamethas one Send Method: E-Prescr ibed Sub s Allowed: subs OK Speci al Instruct ion: x 14 days Med icationG enericNa me: cipyinkalo xacin-de xamethas shraddha Medi cation ID: [id number] D uration Value: 14 Brand Name: mechelle weisscin-de yudelka llanes Send Method: E-Prescr ibed Sub s Allowed: subs OK Speci al Instruct ion: x 14 days [facility]: cipfede xacin-de xamethscotty llanes Not Available Not Available Not Available bupropion HCl XL 300 mg 24 hr tablet, extended release TAKE 1 TABLET DAILY 11/13 completed Not Available Not Available Not Available ProAir HFA 90 mcg/actua tion aerosol inhaler 04/11 completed Medicati on ID: [id number] Du ration Value: 20 Reason: () Brand Name: ProAir HFA Send Method: E-Prescr ibed Sub s Allowed: subs OK Speci al Instruct ion: 2 PUFFS INHALATI ON 4 TIMES A DAY Medi cationGe nericNam e: ProAir HFA Not Available Not Available Not Available melatonin 5 mg tablet 05/04 completed Medicati on ID: [id number] B rand Name: melatoni n Send Method: E-Prescr ibed Sub s Allowed: subs OK Medic ationGen ericName : melatoni n Not Available Not Available Not Available guanfacin e ER 2 mg tablet,ex tended release 24 hr 2020 active Medicati on ID: [id number] B rand Name: guanfaci ne Send Method: E-Prescr ibed Sub s Allowed: subs OK Medic ationGen ericName : guanfaci ne Not Available Not Available Not Available Aerochamb er Plus Flow-Vu 04/11 completed Medicati on ID: [id number] Du ration Value: 30 Reason: () Brand [...] both nostrils 2019 active Medicati on ID: [id number] D uration Value: 30 Brand Name: Flonase Allergy Relief S end Method: E-Prescr ibed Sub s Allowed: subs OK Medic ationGen ericName : Flonase Allergy Relief Not Available Not Available Not Available melatonin 10 mg sublingua l tablet 07/11 completed Medicati on ID: [id number] D uration Value: 30 Brand Name: melatoni [...] BY SUBCUTAN EOUS ROUTE FOR 28 DAYS. 05/04 completed Not Available Not Available Not Available Wegovy 0.5 mg/0.5 mL subcutane ous [...] t Available Vitals Date Recorded Body height Body mass index (BMI) [Percentile] Per age and sex Body mass index (BMI) Body weight Provider Name and Address Organization Details Last Updated DateTime 08/20/2024 162.56 cm 99 % 48.1 kg/m2 348130.8 6 g Андрей Hussein [place] - [facility] 08/20/2024 10:31:55 Social History None recorded. Functional Status None recorded. Mental Status None recorded. Family History Nothing Reported. Medical History Condition Response Allergies/Hayfever Y Heart Problems N Anxiety Y Tonsil Infections N Emphysema N Migraines N Thyroid Problems N Glaucoma N Depression Y COPD N Developmental Delay N Nasal or Sinus Problems N Anemia Y Immune System Disorder N Anesthesia Complications N Heart Attack (MS) N Other Skin Condition N Diabetes N Rhinitis N Bleeding Disorder N Food Allergy N Arthritis N Hearing Loss Y Hyperlipidemia N Cancer N Stroke N Dementia N Nasal polyps N Asthma Y Sleep Disorder N GERD/Reflux N High Cholesterol N Liver Disease N Headaches Y Fibromyalgia N Hypertension N Speech Delay N Kidney Disease N Gynecological HistoryNo gynecological history recorded. Obstetrics History GPAL:G 0 P 0 0 0 0 Past Encounters Encounter ID Performer Location Encounter Start Date Encounter Closed Date Diagnosis/Indication Diagnosis SNOMED-CT Code Diagnosis ICD10 Code Diagnosis Note [id number] SHANNEN GRAVES MD [facility] on [address] [place] [address] 11/14/2023 08:56:23 11/14/2023 10:10:17 Bilateral disorder of Eustachian tubes 2079945626 339449 H69.83 Both tympanosto my tubes have extruded [...] reassess eustachian tube function. Conductive hearing loss 84490931 H90.11 Audiologic al evaluation results:Ri ght ear:Mild low frequency conductive hearing loss with excellent word recognitio n.Left ear:Normal hearing with excellent word recognitio n. Tympanomet ry:Right Ear:Type CLeft Ear:Type A [id number] RADHA VALDERRAMA PA-C [facility] on [address] [place] [id number] 05/07/2024 09:49:50 05/07/2024 10:38:45 Dysfunction of eustachian tube 04730365 H69.93 Audiologic al evaluation results: 05/07/2024 Tympanomet ry: Right Ear:Type B Left Ear:Type C Bilateral disorder of Eustachian tubes 9409197898 372706 H69.83 Chronic mu coid otitis media of right middle ear 5798200997 870162 H65.31 [id number] SHANNEN GRAVES MD [facility] on [address] [place] [address] 08/20/2024 10:02:51 08/20/2024 14:29:49 Bilateral disorder of Eustachian tubes 7380261085 205257 H69.83 Audiologic al evaluation results: 08/20/2024 Tympanomet ry: Right Ear:Type C Left Ear:Type A Marijuana user 803524490 F12.90 Health Concerns Section Related Observation LastModified by Organization Detai ls LastModified Time None Recorded Concern Status LastModified by Organization Details LastModified Time None Recorded Advance Directives Directive None Recorded Payers Insurance Date Sequence Insurance Name Policy Number Policy Kimbrough Covered Member ID Kimbrough Member ID Guarantor Name 08/17/2024 1 [place]: [facility] (O) [id number] Luciano R Addie [id number] Marion Addie 08/17/2024 2 [place]: [facility] Marion E Addie [id number] Marion Addie Notes Date Note Type Note [...] no pain or discharge. SHANNEN GRAVES MD [address] [place] [address], [place], [address], [facility] - [facility] 11/14/2023 10:11:42 05/07/2024 text/html 18 year old fema le with longstanding eustachian tube dysfunction presents for follow up. She underwent bilateral balloon dilation of the eustachian tube with concurrent placement of short acting tympanostomy tubes in January 2023. At her last office visit both tubes were noted to be extruded and remained in the canal. She reports some muffled hearing intermittently. She admits to a recent cold. ELADIA RIVAS MD [address] [facility],[place] [address], [place], [address], [facility] - [facility] 05/07/2024 12:55:44 08/20/2024 text/html 18 year old fema luma with longstanding eustachian tube dysfunction presents for follow up. She underwent bilateral balloon dilation of the eustachian tube with concurrent placement of short acting tympanostomy tubes in January 2023. At her last office visit both tubes were noted to be extruded and were removed. She reports some muffled hearing intermittently in the right ear. She admits that she smokes marijuana nightly. She is quite hesitant to autoinsufflate her ears. SHANNEN GRAVES MD [address] [facility],[place] [address], [place], [address], [facility] 08/20/2024 21:29:53 OBGyn Episode No OBEpisode recorded.
[2024-11-15 15:11] VITALS: BP 108/75; PULSE 94
== END 2024-11-15 15:16 | disposition home or self-care (01) ==
LOC: HO.HGS 15:05
PROVIDERS: PCP Nurse Practitioner Family
DX: Z90.49 Acquired absence of other specified parts of digestive tract (principal)
CPT/HCPCS: 99024